=== PATIENT | female | born 1960 | race Caucasian/White ===

== ENCOUNTER 2018-05-07 11:34 | Emergency (ER) | payer MEDICAID, OTHER ==
[~2018-05-07] VITALS: Ht 157.5 cm; Wt 48.0 kg
[~2018-05-07 11:34] MED LIST: CLOP75TA35 PO; NO HOME MEDS; RIVA20TA PO
[2018-05-07 12:42] LABS: BASOPHILS % (AUTO) 0.8 % (0-1); EOSINOPHILS # (AUTO) 0.1 X10'3 (0-0.9); EOSINOPHILS % (AUTO) 1.7 % (0-6); HEMATOCRIT 43.1 % (35.0-45.0); HEMOGLOBIN 14.3 g/dl (12.0-16.0); LYMPHOCYTES # (AUTO) 1.4 X10'3 (1.1-4.8); LYMPHOCYTES % (AUTO) 31.5 % (21-51); MEAN CORPUSCULAR HEMOGLOBIN 33.1 PG (27.0-31.0); MEAN CORPUSCULAR HGB CONC 33.2 % (33.0-36.5); MEAN CORPUSCULAR VOLUME 99.8 FL (78-98); MEAN PLATELET VOLUME 7.5 FL (7.4-10.4); MONOCYTES # (AUTO) 0.5 X10'3 (0-0.9); MONOCYTES % (AUTO) 10.6 % (2-12); NEUTROPHILS # (AUTO) 2.4 X10'3 (1.8-7.7); NEUTROPHILS % (AUTO) 55.4 % (42-75); PLATELET COUNT 219 X10'3 (140-440); RED BLOOD COUNT 4.32 X10'6 (4.20-5.60); RED CELL DISTRIBUTION WIDTH 13.4 % (11.5-14.5); WHITE BLOOD COUNT 4.4 X10'3 (4.5-11.0)
--- NOTE | 2018-05-07 12:53 | NUR ---
UP TO BSC
[2018-05-07 12:59] LABS: ALANINE AMINOTRANSFERASE 198 U/L (12-78); ALBUMIN 3.9 G/DL (3.4-5.0); ALKALINE PHOSPHATASE 89 IU/L (46-116); ANION GAP 14 (8-16); ASPARTATE AMINO TRANSFERASE 121 U/L (10-37); BILIRUBIN,TOTAL 0.3 MG/DL (0.1-1.0); BLOOD UREA NITROGEN 12 MG/DL (7-18); BUN/CREATININE RATIO 21.4 (6.6-38.0); CHLORIDE 102 MMOL/L (99-107); CREATININE 0.56 MG/DL (0.40-0.90); GLUCOSE 80 MG/DL (70-104); SODIUM 139 MMOL/L (135-145); TOTAL PROTEIN 7.8 G/DL (6.4-8.2); eGFR > 90 ML/MIN
[2018-05-07 13:09] LABS: PARTIAL THROMBOPLASTIN TIME 25 SECONDS (22-32); PROTHROMBIN TIME 10.1 SECONDS (9.0-12.0)
[2018-05-07] MEDS ORDERED: ASPI81TA52 PO (15:12)
[2018-05-07 15:24] VITALS: BP 136/73
== END 2018-05-07 15:27 | disposition home or self-care (01) ==
LOC: ER 11:34
DX: I73.9 Peripheral vascular disease, unspecified (principal); F12.90 Cannabis use, unspecified, uncomplicated; F15.90 Other stimulant use, unspecified, uncomplicated; Z86.718 Personal history of other venous thrombosis and embolism; Z88.5 Allergy status to narcotic agent; Z79.82 Long term (current) use of aspirin; Z79.899 Other long term (current) drug therapy
CPT/HCPCS: 36415; 80053; 80320; 85025; 85610; 85730; 93922; 93925; 99284

== ENCOUNTER 2019-09-22 17:32 | Emergency (ER) | payer MEDICAID, OTHER ==
[~2019-09-22] VITALS: Ht 157.5 cm; Wt 49.8 kg
[~2019-09-22 17:32] MED LIST changes: +ASPI81TA52 PO
[2019-09-22] MEDS ORDERED: LIDOcaine 1% W/epiNEPHrine 1:200,000 10ml vial IJ ONE (18:00)
[2019-09-22] MEDS ORDERED: CEPH250T PO (18:20)
[2019-09-22 18:31] VITALS: BP 138/73
== END 2019-09-22 18:32 | disposition home or self-care (01) ==
LOC: ER 17:32
DX: H66.41 Suppurative otitis media, unspecified, right ear (principal); F12.90 Cannabis use, unspecified, uncomplicated; F15.90 Other stimulant use, unspecified, uncomplicated; Z88.5 Allergy status to narcotic agent; Z79.82 Long term (current) use of aspirin; Z79.899 Other long term (current) drug therapy; Z79.01 Long term (current) use of anticoagulants; Z86.718 Personal history of other venous thrombosis and embolism; Z72.89 Other problems related to lifestyle
CPT/HCPCS: 10060; 99283

== ENCOUNTER 2019-10-28 12:34 | Inpatient (IN) | payer MEDICAID, OTHER ==
[~2019-10-28] VITALS: Ht 157.5 cm; Wt 57.1 kg
--- NOTE | 2019-10-28 13:18 | NUR ---
Dr. Alvarez notified of patient and condition. She will be moved to bed 12 when cleaned and venous/arterial vascular studies ordered.
[2019-10-28] MEDS ORDERED: aspirin 325mg tablet PO ONE (15:10)
[2019-10-28] MEDS ORDERED: heparin 25,000 UNIT/250ml bag 250 ML IV SCH (15:13)
[2019-10-28] MEDS ORDERED: heparin 10,000 units/1 ML INJ IV PRN (15:15)
[2019-10-28] MEDS ORDERED: heparin 10,000 units/1 ML INJ IV ONE (15:15)
[2019-10-28] MEDS ORDERED: iohexol 350 MG/ML 50ML vial IV ONE (15:27)
[2019-10-28] MEDS ORDERED: iohexol 350MG/ML 100ml bottle IV ONE (15:27)
[2019-10-28 16:00] LABS: BASOPHILS % (AUTO) 0.4 % (0-1); EOSINOPHILS % (AUTO) 0.4 % (0-6); HEMATOCRIT 44.1 % (35.0-45.0); LYMPHOCYTES # (AUTO) 1.6 X10'3 (1.1-4.8); MEAN CORPUSCULAR HEMOGLOBIN 33.1 PG (27.0-31.0); MEAN CORPUSCULAR HGB CONC 34.1 g/dL (33.0-36.5); MEAN CORPUSCULAR VOLUME 97.1 FL (78-98); MEAN PLATELET VOLUME 7.9 FL (7.4-10.4); MONOCYTES # (AUTO) 0.5 X10'3 (0-0.9); MONOCYTES % (AUTO) 6.9 % (2-12); NEUTROPHILS % (AUTO) 70.3 % (42-75); PLATELET COUNT 159 X10'3 (140-440); RED BLOOD COUNT 4.54 X10'6 (4.20-5.60); RED CELL DISTRIBUTION WIDTH 13.7 % (11.5-14.5); WHITE BLOOD COUNT 7.1 X10'3 (4.5-11.0)
[2019-10-28] MEDS ORDERED: LIDOcaine 1% (10mg/ml) 2ml vial ONE (16:07)
[2019-10-28] MEDS ORDERED: heparin 10,000 units/1 ML INJ ONE ×2 (16:07→20:02)
[2019-10-28 16:11] LABS: ALANINE AMINOTRANSFERASE 40 U/L (12-78); ALBUMIN 3.5 G/DL (3.4-5.0); ALBUMIN/GLOBULIN RATIO 0.8 (1.1-1.5); ALKALINE PHOSPHATASE 97 IU/L (46-116); ANION GAP 9 (8-16); ASPARTATE AMINO TRANSFERASE 143 U/L (10-37); BILIRUBIN,TOTAL 0.5 MG/DL (0.1-1.0); BLOOD UREA NITROGEN 10 MG/DL (7-18); BUN/CREATININE RATIO 16.9 (6.6-38.0); CALCIUM 9.2 MG/DL (8.5-10.1); CHLORIDE 96 MMOL/L (99-107); CREATININE 0.59 MG/DL (0.40-0.90); GLUCOSE 98 MG/DL (70-104); POTASSIUM 3.6 MMOL/L (3.5-5.1); SODIUM 134 MMOL/L (135-145); TOTAL CARBON DIOXIDE 29.3 MMOL/L (24-32); TOTAL PROTEIN 7.8 G/DL (6.4-8.2); eGFR > 90 ML/MIN
[2019-10-28 16:15] LABS: TROPONIN I 0.17 NG/ML (0.0-0.05)
[2019-10-28] MEDS ORDERED: iohexol 300 MG/1 ML 50ml polymer ONE (16:20)
[2019-10-28] MEDS: ringers solution, lacted 1,000 ML IV SCH (16:26)
[2019-10-28 16:30] LABS: CLARITY,URINE SLIGHTLY CLOUDY (Clear); COLOR,URINE YELLOW (Yellow); GLUCOSE, URINE NEGATIVE (Neg); KETONES,URINE NEGATIVE (Neg); LEUKOCYTE ESTERASE ,URINE TRACE (Neg); NITRITES, URINE POSITIVE (Neg); OCCULT BLOOD,URINE TRACE-LYSED (Neg); PH,URINE 6.5 (4.8-8.0); PROTEIN,URINE NEGATIVE (Neg)
[2019-10-28 16:32] LABS: UA COLLECTION TYPE CLN CATCH MIDSTREAM
[2019-10-28 16:50] LABS: SQUAMOUS EPITHELIAL CELL,UR FEW /LPF (FEW)
[2019-10-28 16:52] LABS: BACTERIA,URINE 3+ /HPF (Neg); RBC,URINE NONE SEEN /HPF (0-2)
--- NOTE | 2019-10-28 17:02 | NUR ---
DVT heparin protocoll cancelled by telephone order by Dr. Bañuelos
[2019-10-28] MEDS ORDERED: dexamethasone sod phosphate 10mg/ml inj ONE (17:17)
[2019-10-28] MEDS ORDERED: sevoflurane 250ml liquid IH ONE (17:17)
[2019-10-28] MEDS ORDERED: rocuronium 10mg/ml inj IV ONE ×2 (17:17→18:54)
[2019-10-28] MEDS ORDERED: nitroGLYCERIN in D5W 50mg/250ml (Tridil) infusion IV ONE (17:17)
[2019-10-28] MEDS ORDERED: fentaNYL /PF 50mcg/ml 5ml ampule ONE (17:31)
[2019-10-28] MEDS ORDERED: MIDAZolam 5mg/5ml vial ONE (17:31)
[2019-10-28] MEDS ORDERED: ringers solution, lacted 1,000 ML IV SCH (18:46)
[2019-10-28] MEDS ORDERED: morphine 2 MG/ML inj. syringe IV PRN (18:50)
[2019-10-28] MEDS ORDERED: proCHLORperazine 10 MG/2 ml inj IV PRN (18:50)
[2019-10-28] MEDS ORDERED: meperidine/PF 25mg/ml syringe IV PRN ×3 (18:50)
[2019-10-28] MEDS ORDERED: morphine 4 MG/ML inj SYRINge IV PRN (18:50)
[2019-10-28] MEDS ORDERED: ondansetron/PF 4mg/2ml inj IV PRN (18:50)
[2019-10-28] MEDS ORDERED: ceFAZolin 1000mg inj ONE ×2 (18:54)
[2019-10-28] MEDS ORDERED: phenylephrine 10mg/ml inj. ONE (18:54)
[2019-10-28] MEDS ORDERED: propofol inj 20 ML IV ONE (18:54)
[2019-10-28] MEDS ORDERED: LIDOcaine 2% (20mg/ml) 5ml vial ONE (18:54)
[2019-10-28] MEDS ORDERED: heparin 1,000unit/ml 10ml vial 10 ML ONE (18:54)
[2019-10-28] MEDS ORDERED: morphine 10mg/ml inj. ONE (20:00)
[2019-10-28] MEDS ORDERED: albumin (Human) 5% 250ml 250 ML IV ONE (20:34)
[2019-10-28 21:56] LABS: BASOPHILS % (AUTO) 0.1 % (0-1); EOSINOPHILS % (AUTO) 0.2 % (0-6); HEMATOCRIT 29.2 % (35.0-45.0); HEMOGLOBIN 9.7 g/dl (12.0-16.0); LYMPHOCYTES # (AUTO) 0.7 X10'3 (1.1-4.8); LYMPHOCYTES % (AUTO) 12.7 % (21-51); MEAN CORPUSCULAR HEMOGLOBIN 32.3 PG (27.0-31.0); MEAN CORPUSCULAR HGB CONC 33.4 g/dL (33.0-36.5); MEAN CORPUSCULAR VOLUME 96.8 FL (78-98); MEAN PLATELET VOLUME 7.4 FL (7.4-10.4); MONOCYTES # (AUTO) 0.1 X10'3 (0-0.9); MONOCYTES % (AUTO) 2.4 % (2-12); NEUTROPHILS # (AUTO) 4.6 X10'3 (1.8-7.7); NEUTROPHILS % (AUTO) 84.6 % (42-75); PLATELET COUNT 112 X10'3 (140-440); RED BLOOD COUNT 3.01 X10'6 (4.20-5.60); RED CELL DISTRIBUTION WIDTH 13.8 % (11.5-14.5); WHITE BLOOD COUNT 5.4 X10'3 (4.5-11.0)
[2019-10-28 22:04] LABS: ALBUMIN 2.2 G/DL (3.4-5.0); ANION GAP 10 (8-16); BLOOD UREA NITROGEN 5 MG/DL (7-18); BUN/CREATININE RATIO 12.5 (6.6-38.0); CALCIUM 6.6 MG/DL (8.5-10.1); CHLORIDE 108 MMOL/L (99-107); GLUCOSE 133 MG/DL (70-104); POTASSIUM 3.4 MMOL/L (3.5-5.1); SODIUM 139 MMOL/L (135-145); TOTAL CARBON DIOXIDE 21.3 MMOL/L (24-32); eGFR > 90 ML/MIN
[2019-10-28] MEDS ORDERED: HYDROmorphone 1 mg/ml syringe IV PRN (22:25)
[2019-10-28] MEDS ORDERED: HYDROcodone/acetaminophen 10/325mg tab PO PRN (22:25)
[2019-10-28 22:40] VITALS: BP 119/70
--- NOTE | 2019-10-28 22:41 | NUR ---
PT TRANSFERRED TO ROOM 2010 IN CICU. PT POST OP. ANESTHESIOLOGIST REPORTED DRAWING POST OP LABS. PT HAS NE CENTRAL LINE. ACCOUNT SERVICES SPECIALIST ORDERED MD ALCANTAR CONFIRMED LINE PLACEMENT. PT IS ASLEEP BUT WAKES UP EASILY. VITAL SIGNS ARE STABLE. PT HAS A RIGHT RADIAL ART LINE. PT SURGICAL SITE ON LEFT CALF WITH MINIMAL AND A WOUND VAC ON LEFT GROIN. BILATERAL PEDAL AND POSTERIOR TIBIALIS PULSES PRESENT VIA DOPPLER. PT IS A&OX4. WILL CONTINUE TO MONITOR
[2019-10-28 23:00] VITALS: BP 124/74
[2019-10-28 23:15] VITALS: BP 111/71
[2019-10-28 23:30] VITALS: BP 126/73
[2019-10-28] MEDS: ceFAZolin inj. 1,000 MG in dextrose 5%-water 50ml 50 ML IV SCH (23:52)
[2019-10-28] MEDS: potassium CL 20mEq in D5-1/2NS 1,000 ML IV SCH (23:52)
[2019-10-29] VITALS (20 sets, daily range): BP systolic 91–134; BP diastolic 47–77
[2019-10-29] MEDS ORDERED: ceFAZolin 1GM/D5W- ADD-VANTAGE 50 ML IV SCH
[2019-10-29 03:33] LABS: BASOPHILS % (AUTO) 0.1 % (0-1); EOSINOPHILS % (AUTO) 0 % (0-6); HEMATOCRIT 30.5 % (35.0-45.0); HEMOGLOBIN 10.2 g/dl (12.0-16.0); LYMPHOCYTES # (AUTO) 0.7 X10'3 (1.1-4.8); LYMPHOCYTES % (AUTO) 9.5 % (21-51); MEAN CORPUSCULAR HEMOGLOBIN 32.7 PG (27.0-31.0); MEAN CORPUSCULAR HGB CONC 33.4 g/dL (33.0-36.5); MEAN PLATELET VOLUME 7.8 FL (7.4-10.4); MONOCYTES # (AUTO) 0.5 X10'3 (0-0.9); MONOCYTES % (AUTO) 6.2 % (2-12); NEUTROPHILS # (AUTO) 6.2 X10'3 (1.8-7.7); NEUTROPHILS % (AUTO) 84.2 % (42-75); PLATELET COUNT 110 X10'3 (140-440); RED BLOOD COUNT 3.11 X10'6 (4.20-5.60); RED CELL DISTRIBUTION WIDTH 13.5 % (11.5-14.5); WHITE BLOOD COUNT 7.4 X10'3 (4.5-11.0)
[2019-10-29 03:47] LABS: ALBUMIN 2.4 G/DL (3.4-5.0); ANION GAP 6 (8-16); BLOOD UREA NITROGEN 5 MG/DL (7-18); BUN/CREATININE RATIO 11.1 (6.6-38.0); CALCIUM 6.9 MG/DL (8.5-10.1); CHLORIDE 106 MMOL/L (99-107); CREATININE 0.45 MG/DL (0.40-0.90); GLUCOSE 217 MG/DL (70-104); POTASSIUM 3.7 MMOL/L (3.5-5.1); SODIUM 138 MMOL/L (135-145); TOTAL CARBON DIOXIDE 26.4 MMOL/L (24-32); eGFR > 90 ML/MIN
[2019-10-29 04:09] LABS: UA EOSINOPHILS RARE EOS /HPF
[2019-10-29] MEDS: ringers solution, lacted 1,000 ML IV SCH (05:46)
--- NOTE | 2019-10-29 06:00 | NUR ---
Patient in room CICU 2009. I have received report from LUCIA Hardwick and had the opportunity to ask questions and assume patient care.
--- NOTE | 2019-10-29 06:11 | NUR ---
Problems reprioritized. Patient report given, questions answered & plan of care reviewed
[2019-10-29] MEDS: ceFAZolin inj. 1,000 MG in dextrose 5%-water 50ml 50 ML IV SCH ×2 (07:41→15:35)
[2019-10-29] MEDS: potassium CL 20mEq in D5-1/2NS 1,000 ML IV SCH ×4 (08:36→22:22)
[2019-10-29 11:37] LABS: CREATINE KINASE 2679 U/L (26-192)
[2019-10-29] MEDS ORDERED: iohexol 350 MG/ML 50ML vial IV ONE (12:29)
[2019-10-29] MEDS ORDERED: iohexol 350MG/ML 100ml bottle IV ONE (12:29)
[2019-10-29] MEDS ORDERED: CLOP75TA33 PO (13:11)
[2019-10-29] MEDS ORDERED: RIVA20TA PO (13:11)
[2019-10-29] MEDS ORDERED: ASPI-611 PO (13:11)
[2019-10-29] MEDS ORDERED: heparin 10,000 units/1 ML INJ ONE (17:15)
[2019-10-29] MEDS ORDERED: ceFAZolin 1000mg inj ONE ×3 (17:15→19:28)
--- NOTE | 2019-10-29 18:10 | NUR ---
Problems reprioritized. Patient report given, questions answered & plan of care reviewed with LUCIA Hardwick.
--- NOTE | 2019-10-29 18:15 | NUR ---
Patient in room CICU 2009. I have received report and had the opportunity to ask questions and assume patient care.
--- NOTE | 2019-10-29 18:25 | NUR ---
pt going back to OR at beginning of shift. Pt A&Ox4, lung sounds are clear with symmetrical bilateral rise and fall of chest. bowel sounds are present in all four quadrants and are normoactive. no bm today. bilateral groin wound vacs have good seal and no output. bilateral radial pulses are strong and palpable. lower left extremity pulses are strong with doppler. lower right extremity is cooler than the left, pulse is weak but can doppler the pulse. island dressing to left calf has some drainage but nothing outside circled drainage from previous shift. will continue to monitor
--- NOTE | 2019-10-29 18:34 | NUR ---
PT TAKEN TO OR WITH TRANSPORT MONITORING
[2019-10-29] MEDS ORDERED: midazolam 2 mg/2 ml injection ONE (18:36)
[2019-10-29] MEDS ORDERED: phenylephrine 10mg/ml inj. ONE (18:37)
[2019-10-29] MEDS ORDERED: sevoflurane 250ml liquid IH ONE (18:37)
[2019-10-29] MEDS ORDERED: fentaNYL /PF 50mcg/ml 5ml ampule ONE (18:40)
[2019-10-29] MEDS ORDERED: rocuronium 10mg/ml inj IV ONE ×2 (19:28)
[2019-10-29] MEDS ORDERED: midazolam 100mg in NS 100ml 100 ML IV PRN (20:06)
[2019-10-29] MEDS ORDERED: FENTANYL-0.9 % NACL/PF 100 ML IV PRN (20:06)
[2019-10-29] MEDS ORDERED: fentaNYL/PF 50MCG/1 ML 2ML syringe IV PRN (20:10)
[2019-10-29] MEDS ORDERED: midazolam 2 mg/2 ml injection IV ONE (20:10)
[2019-10-29] MEDS ORDERED: fentaNYL/PF 50MCG/1 ML 2ML syringe ONE (23:12)
[2019-10-29] MEDS: FENTANYL-0.9 % NACL/PF 100 ML IV PRN (23:44)
[2019-10-29 23:56] LABS: ABG BASE EXCESS -5.2 mmol/L (-2.0-2.0); ABG HCO3 19.3 mmol/L (22.0-26.0); ABG OXYGEN SATURATION 99.2 % (94-97); ABG PCO2 (T) 33.5 mmHg (32.0-45.0); ABG PO2 (T) 350.7 mmHg (75.0-100.0); FCOHb 0.1 % (0.0-3.9); FMetHb 0.2 % (0.0-1.5); FO2Hb 98.9 % (94-97); PATIENT TEMPERATURE 36.6; PEEP 5 cm H2O; RESPIRATORY RATE 12 b/min; TIDAL VOLUME 500 mL; TOTAL HEMOGLOBIN 12.5 G/dl (12.0-16.0)
[2019-10-30] VITALS (28 sets, daily range): BP systolic 87–129; BP diastolic 44–83
[2019-10-30 00:06] LABS: BASOPHILS % (AUTO) 0.2 % (0-1); EOSINOPHILS % (AUTO) 0.1 % (0-6); HEMATOCRIT 35.3 % (35.0-45.0); HEMOGLOBIN 11.9 g/dl (12.0-16.0); LYMPHOCYTES # (AUTO) 0.8 X10'3 (1.1-4.8); LYMPHOCYTES % (AUTO) 11.4 % (21-51); MEAN CORPUSCULAR HEMOGLOBIN 31.8 PG (27.0-31.0); MEAN CORPUSCULAR HGB CONC 33.7 g/dL (33.0-36.5); MEAN CORPUSCULAR VOLUME 94.3 FL (78-98); MEAN PLATELET VOLUME 8.2 FL (7.4-10.4); MONOCYTES # (AUTO) 0.3 X10'3 (0-0.9); MONOCYTES % (AUTO) 4.6 % (2-12); NEUTROPHILS % (AUTO) 83.7 % (42-75); PLATELET COUNT 97 X10'3 (140-440); RED BLOOD COUNT 3.75 X10'6 (4.20-5.60); WHITE BLOOD COUNT 7.2 X10'3 (4.5-11.0)
--- NOTE | 2019-10-30 00:11 | NUR ---
pt returned from or on mechanical ventilator. ett 7.0 at 23 at the teeth- oral care provided, comfit padded with gauze around mouth. versed running at 2mg and fentanyl running at 50 mcg for sedation. pt lung sounds are clear with symmetrical bilateral rise and fall of the chest. og to low intermittent suction. abdomen is distended, large, and firm. md reports fascia is still open, surgical dressing on midline abdomen with no drainage on dressing. bilateral groin sx sites y into wound vac with no drainage at this time. bilateral pedal pulses are normal with doppler. vital signs stable. will continue to monitor
[2019-10-30 00:18] LABS: ALANINE AMINOTRANSFERASE 22 U/L (12-78); ALBUMIN 1.9 G/DL (3.4-5.0); ALBUMIN/GLOBULIN RATIO 0.8 (1.1-1.5); ALKALINE PHOSPHATASE 40 IU/L (46-116); ANION GAP 8 (8-16); ASPARTATE AMINO TRANSFERASE 71 U/L (10-37); BILIRUBIN,TOTAL 1.2 MG/DL (0.1-1.0); BLOOD UREA NITROGEN 2 MG/DL (7-18); BUN/CREATININE RATIO 4.1 (6.6-38.0); CHLORIDE 109 MMOL/L (99-107); CREATININE 0.49 MG/DL (0.40-0.90); GLUCOSE 179 MG/DL (70-104); MAGNESIUM 1.1 MG/DL (1.5-2.4); PHOSPHORUS 2.2 MG/DL (2.3-4.5); POTASSIUM 3.3 MMOL/L (3.5-5.1); SODIUM 139 MMOL/L (135-145); TOTAL PROTEIN 4.2 G/DL (6.4-8.2); eGFR > 90 ML/MIN
[2019-10-30] MEDS ORDERED: potassium CL 10mEq/100ml bag 100 ML IV PRN (00:30)
[2019-10-30] MEDS ORDERED: magnesium 4gm in 100ml NS 100 ML IV PRN (00:30)
[2019-10-30] MEDS ORDERED: Neutra Phos packet PO PRN (00:30)
[2019-10-30] MEDS ORDERED: sodium phosphate inj. 15 MMOL in dextrose 5%-water 250 ML IV PRN (00:30)
[2019-10-30] MEDS ORDERED: calcium chloride 100 MG/1 ML inj IV ONE (00:30)
[2019-10-30] MEDS ORDERED: sodium phosphate inj. 30 MMOL in dextrose 5%-water 250 ML IV PRN (00:30)
[2019-10-30] MEDS: ceFOXitin 1 GM/D5W 50mL IVPB 50 ML IV SCH ×2 (00:44→09:41)
[2019-10-30 00:54] LABS: PARTIAL THROMBOPLASTIN TIME > 139 SECONDS (22-32)
[2019-10-30] MEDS: ringers solution, lacted 1,000 ML IV SCH ×3 (01:07→20:43)
[2019-10-30] MEDS: magnesium 2GM in 50ml NS 50 ML IV PRN (01:29)
[2019-10-30] MEDS ORDERED: albumin (Human) 5% 250ml 250 ML IV ONE ×2 (02:45→02:49)
[2019-10-30] MEDS ORDERED: albumin (Human) 5% 250ml 500 ML IV ONE (02:45)
--- NOTE | 2019-10-30 02:46 | NUR ---
pt bp 79/51. software packager notified. ordered for 5% albumin 500ml iv once received
[2019-10-30 02:51] LABS: BASOPHILS % (AUTO) 0.1 % (0-1); EOSINOPHILS % (AUTO) 0 % (0-6); HEMOGLOBIN 11.4 g/dl (12.0-16.0); LYMPHOCYTES # (AUTO) 0.8 X10'3 (1.1-4.8); LYMPHOCYTES % (AUTO) 9.3 % (21-51); MEAN CORPUSCULAR HEMOGLOBIN 32.4 PG (27.0-31.0); MEAN CORPUSCULAR HGB CONC 34.4 g/dL (33.0-36.5); MEAN CORPUSCULAR VOLUME 94.3 FL (78-98); MEAN PLATELET VOLUME 8.3 FL (7.4-10.4); MONOCYTES # (AUTO) 0.8 X10'3 (0-0.9); MONOCYTES % (AUTO) 8.8 % (2-12); NEUTROPHILS # (AUTO) 7.3 X10'3 (1.8-7.7); NEUTROPHILS % (AUTO) 81.8 % (42-75); PLATELET COUNT 90 X10'3 (140-440); RED CELL DISTRIBUTION WIDTH 15.3 % (11.5-14.5)
[2019-10-30 02:59] LABS: ALBUMIN 1.8 G/DL (3.4-5.0); ANION GAP 7 (8-16); BLOOD UREA NITROGEN 4 MG/DL (7-18); BUN/CREATININE RATIO 6.9 (6.6-38.0); CALCIUM 7.9 MG/DL (8.5-10.1); CHLORIDE 107 MMOL/L (99-107); CREATININE 0.58 MG/DL (0.40-0.90); GLUCOSE 235 MG/DL (70-104); SODIUM 135 MMOL/L (135-145); TOTAL CARBON DIOXIDE 20.8 MMOL/L (24-32); eGFR > 90 ML/MIN
[2019-10-30 03:36] LABS: ABG BASE EXCESS -6.6 mmol/L (-2.0-2.0); ABG HCO3 17.6 mmol/L (22.0-26.0); ABG OXYGEN SATURATION 97.7 % (94-97); ABG PCO2 (T) 31.2 mmHg (32.0-45.0); ABG PO2 (T) 119.9 mmHg (75.0-100.0); FMetHb 0.1 % (0.0-1.5); FO2Hb 97.6 % (94-97); PATIENT TEMPERATURE 37.5; PEEP 5 cm H2O; RESPIRATORY RATE 12 b/min; TIDAL VOLUME 500 mL; TOTAL HEMOGLOBIN 10.4 G/dl (12.0-16.0)
--- NOTE | 2019-10-30 06:09 | NUR ---
Problems reprioritized. Patient report given, questions answered & plan of care reviewed with zane choudhury.
--- NOTE | 2019-10-30 06:30 | NUR ---
Patient in room CICU 2009. I have received report from Sandra MYERS and had the opportunity to ask questions and assume patient care.
[2019-10-30] MEDS ORDERED: dextrose ORAL solution 15 GM/59 ML bottle PO PRN ×2 (09:20)
[2019-10-30] MEDS ORDERED: dextrose 50%-water 50ml dispensing syringe IV PRN ×2 (09:20)
[2019-10-30] MEDS ORDERED: MESSAGE TO PHARMACY PO ONE (09:20)
[2019-10-30] MEDS ORDERED: glucagon, human recombinant 1mg kit SUBCUT PRN (09:20)
[2019-10-30] MEDS: insulin Lispro (HumaLOG) vial - multi-dose SQ SCH ×2 (09:39→20:15)
[2019-10-30] MEDS: potassium CL 20mEq in D5-1/2NS 1,000 ML IV SCH ×3 (09:41→22:22)
[2019-10-30] MEDS ORDERED: iohexol 350MG/ML 100ml bottle IV ONE (10:12)
[2019-10-30] MEDS ORDERED: iohexol 350 MG/ML 50ML vial IV ONE (10:12)
--- NOTE | 2019-10-30 11:02 | NUR ---
Rounds Note informed Dr. Agustin of Dr. Montilla plan for the day, informed Dr Agustin of the positive urine culture her added rocephin 1gm Q8. No other new orders at this time
[2019-10-30] MEDS: FENTANYL-0.9 % NACL/PF 100 ML IV PRN (12:59)
[2019-10-30] MEDS: CefTRIAXone/D5W-Rocephin 1gm 50 ML IV SCH (14:04)
--- NOTE | 2019-10-30 18:29 | NUR ---
Patient in room CICU 2009. I have received report from ALEX MYERS and had the opportunity to ask questions and assume patient care.
[2019-10-30] MEDS: insulin glargine (Lantus) pen - multi-dose SQ SCH (20:16)
[2019-10-31] VITALS (32 sets, daily range): BP systolic 80–141; BP diastolic 39–74
[2019-10-31 02:50] LABS: BASOPHILS % (AUTO) 0.1 % (0-1); EOSINOPHILS % (AUTO) 0 % (0-6); HEMOGLOBIN 7.4 g/dl (12.0-16.0); LYMPHOCYTES # (AUTO) 1.2 X10'3 (1.1-4.8); LYMPHOCYTES % (AUTO) 13.9 % (21-51); MEAN CORPUSCULAR HEMOGLOBIN 31.8 PG (27.0-31.0); MEAN CORPUSCULAR HGB CONC 33.9 g/dL (33.0-36.5); MEAN CORPUSCULAR VOLUME 93.9 FL (78-98); MEAN PLATELET VOLUME 8.5 FL (7.4-10.4); MONOCYTES # (AUTO) 1.4 X10'3 (0-0.9); NEUTROPHILS # (AUTO) 5.9 X10'3 (1.8-7.7); PLATELET COUNT 93 X10'3 (140-440); RED BLOOD COUNT 2.33 X10'6 (4.20-5.60); RED CELL DISTRIBUTION WIDTH 15.5 % (11.5-14.5); WHITE BLOOD COUNT 8.5 X10'3 (4.5-11.0)
[2019-10-31 02:57] LABS: HEMATOCRIT 21.8 % (35.0-45.0)
[2019-10-31] MEDS: mineral oil/petrolatum ophthal oint EACHEYE SCH ×4 (03:04→19:48)
[2019-10-31] MEDS: insulin Lispro (HumaLOG) vial - multi-dose SQ SCH ×2 (03:05→10:44)
[2019-10-31 03:08] LABS: ALBUMIN 2.1 G/DL (3.4-5.0); ANION GAP 7 (8-16); BLOOD UREA NITROGEN 8 MG/DL (7-18); BUN/CREATININE RATIO 16.7 (6.6-38.0); CHLORIDE 105 MMOL/L (99-107); CREATININE 0.48 MG/DL (0.40-0.90); GLUCOSE 144 MG/DL (70-104); MAGNESIUM 1.4 MG/DL (1.5-2.4); PHOSPHORUS 2.3 MG/DL (2.3-4.5); SODIUM 136 MMOL/L (135-145); TOTAL CARBON DIOXIDE 23.9 MMOL/L (24-32); eGFR > 90 ML/MIN
[2019-10-31 03:27] LABS: TOTAL CELLS COUNTED 100
[2019-10-31 03:28] LABS: PLATELET ESTIMATE DECREASED
[2019-10-31 04:45] LABS: ABG BASE EXCESS -7.3 mmol/L (-2.0-2.0); ABG HCO3 16.7 mmol/L (22.0-26.0); ABG OXYGEN SATURATION 94.6 % (94-97); ABG PCO2 (T) 28.6 mmHg (32.0-45.0); ABG PO2 (T) 85.4 mmHg (75.0-100.0); FCOHb 0.3 % (0.0-3.9); FMetHb 0.2 % (0.0-1.5); FO2Hb 94.1 % (94-97); PATIENT TEMPERATURE 37.9; PEEP 5 cm H2O; TOTAL HEMOGLOBIN 7.4 G/dl (12.0-16.0)
--- NOTE | 2019-10-31 06:15 | NUR ---
Patient in room CICU 2009. I have received report from RN and had the opportunity to ask questions and assume patient care.
[2019-10-31] MEDS: CefTRIAXone/D5W-Rocephin 1gm 50 ML IV SCH (07:59)
[2019-10-31] MEDS: FENTANYL-0.9 % NACL/PF 100 ML IV PRN (08:04)
[2019-10-31] MEDS: ondansetron/PF 4mg/2ml inj IV PRN (09:41)
[2019-10-31] MEDS: furosemide 40mg/4ml inj IV SCH (09:48)
[2019-10-31] MEDS: magnesium 2GM in 50ml NS 50 ML IV PRN (10:12)
[2019-10-31] MEDS: potassium CL 20mEq in D5-1/2NS 1,000 ML IV SCH (13:53)
--- NOTE | 2019-10-31 14:00 | NUR ---
Orders to extubate per MD. VC 1481, NIF 25, RSBI 10, Cuff leak present.
--- NOTE | 2019-10-31 14:19 | NUR ---
PT extubated at 1415 without complications. On 2L NC.
--- NOTE | 2019-10-31 14:55 | NUR ---
francisco j nazario md notified. orders received
[2019-10-31] MEDS ORDERED: normal saline 1000ml 1,000 ML IV ONE (15:00)
[2019-10-31 15:49] LABS: MAGNESIUM 1.9 MG/DL (1.5-2.4); POTASSIUM 3.6 MMOL/L (3.5-5.1)
--- NOTE | 2019-10-31 15:51 | NUR ---
Patient is intubated and sedated s/p thrombectomy and left fempop with graft on 10/27; aortic endarterectomy, lysis of adhesions on 10/28. Patient is NPO pending OR for wound closure. If cannot be started on tube feeding for nutrition while intubated may benefit from parenteral nutrition to meet needs. If extubated, monitor diet advancement. Recommend: 1. If needing nutrition support while intubated recommend TF if can feed into gut, if cannot feed enterally would benefit from TPN. 2. When extubated, advance diet as medically indicated when OK by surgeon 3. weight per rx Addendum: 10/31/19 at [address] Amended: Links added.
[2019-10-31] MEDS ORDERED: NORepinephrine 8mg/ 250ml NS 250 ML IV SCH (16:21)
[2019-10-31 17:31] LABS: MEAN CORPUSCULAR HEMOGLOBIN 32.3 PG (27.0-31.0); MEAN CORPUSCULAR HGB CONC 34.1 g/dL (33.0-36.5); MEAN CORPUSCULAR VOLUME 94.6 FL (78-98); PLATELET COUNT 78 X10'3 (140-440); RED BLOOD COUNT 1.69 X10'6 (4.20-5.60); RED CELL DISTRIBUTION WIDTH 14.9 % (11.5-14.5); WHITE BLOOD COUNT 5.2 X10'3 (4.5-11.0)
[2019-10-31 17:36] LABS: HEMOGLOBIN 5.5 g/dl (12.0-16.0)
--- NOTE | 2019-10-31 17:45 | NUR ---
14FR NG tube placed in left nare,to wall suction low intermittent critical H/H. notified, orders received.
--- NOTE | 2019-10-31 18:15 | NUR ---
Patient in room CICU 2009. I have received report from Fatmata MYERS and had the opportunity to ask questions and assume patient care. Patient is resting and receiving blood transfusion. She is A+O and is answering questions appropriately. Will continue to monitor.
[2019-10-31] MEDS: metoclopramide 5 mg/ml inj IV SCH (19:48)
[2019-10-31] MEDS: pantoprazole 40 MG vial IV SCH (19:49)
[2019-10-31] MEDS: lactobacillus rhamnosus 10,000 MMU CELLS/CAPSULE NG SCH (20:11)
[2019-10-31] MEDS ORDERED: HYDROmorphone inj. 0.5 MG/0.5 ML DISP.SYRIN IV PRN (20:15)
[2019-10-31] MEDS: insulin glargine (Lantus) pen - multi-dose SQ SCH (21:00)
[2019-11-01] VITALS (24 sets, daily range): BP systolic 97–130; BP diastolic 50–95
[2019-11-01 00:45] LABS: PLATELET COUNT 85 X10'3 (140-440); WHITE BLOOD COUNT 6.4 X10'3 (4.5-11.0)
[2019-11-01 00:46] LABS: BASOPHILS % (AUTO) 0.3 % (0-1); EOSINOPHILS % (AUTO) 0.2 % (0-6); HEMOGLOBIN 9.1 g/dl (12.0-16.0); LYMPHOCYTES # (AUTO) 0.9 X10'3 (1.1-4.8); LYMPHOCYTES % (AUTO) 13.4 % (21-51); MEAN CORPUSCULAR HEMOGLOBIN 31.6 PG (27.0-31.0); MEAN CORPUSCULAR HGB CONC 33.9 g/dL (33.0-36.5); MEAN CORPUSCULAR VOLUME 93.3 FL (78-98); MONOCYTES # (AUTO) 0.8 X10'3 (0-0.9); MONOCYTES % (AUTO) 12.3 % (2-12); NEUTROPHILS # (AUTO) 4.7 X10'3 (1.8-7.7); NEUTROPHILS % (AUTO) 73.8 % (42-75); RED BLOOD COUNT 2.89 X10'6 (4.20-5.60); RED CELL DISTRIBUTION WIDTH 15.3 % (11.5-14.5)
[2019-11-01 01:02] LABS: ALBUMIN 1.7 G/DL (3.4-5.0); ANION GAP 5 (8-16); BLOOD UREA NITROGEN 6 MG/DL (7-18); BUN/CREATININE RATIO 9.8 (6.6-38.0); CALCIUM 6.5 MG/DL (8.5-10.1); CHLORIDE 105 MMOL/L (99-107); CREATININE 0.61 MG/DL (0.40-0.90); GLUCOSE 116 MG/DL (70-104); MAGNESIUM 1.8 MG/DL (1.5-2.4); PHOSPHORUS 1.9 MG/DL (2.3-4.5); POTASSIUM 3.7 MMOL/L (3.5-5.1); SODIUM 136 MMOL/L (135-145); TOTAL CARBON DIOXIDE 25.8 MMOL/L (24-32); eGFR > 90 ML/MIN
[2019-11-01] MEDS: ondansetron/PF 4mg/2ml inj IV PRN (01:07)
[2019-11-01] MEDS: metoclopramide 5 mg/ml inj IV SCH ×4 (02:26→20:28)
[2019-11-01] MEDS: mineral oil/petrolatum ophthal oint EACHEYE SCH ×2 (02:26→08:00)
[2019-11-01] MEDS: potassium CL 20mEq in D5-1/2NS 1,000 ML IV SCH ×3 (02:29→17:07)
--- NOTE | 2019-11-01 06:35 | NUR ---
Problems reprioritized. Patient report given, questions answered & plan of care reviewed with Venessa MYERS.
--- NOTE | 2019-11-01 06:41 | NUR ---
Patient in room CICU 2009. I have received report from LUCIA Amos and had the opportunity to ask questions and assume patient care.
[2019-11-01] MEDS: pantoprazole 40 MG vial IV SCH ×2 (07:44→20:28)
[2019-11-01] MEDS: lactobacillus rhamnosus 10,000 MMU CELLS/CAPSULE NG SCH ×2 (07:45→20:28)
[2019-11-01] MEDS: aspirin 81mg tablet.DR PO SCH (07:45)
[2019-11-01] MEDS: furosemide 40mg/4ml inj IV SCH (07:45)
[2019-11-01] MEDS: CefTRIAXone/D5W-Rocephin 1gm 50 ML IV SCH (07:45)
[2019-11-01] MEDS: nicotine 21mg patch - 24 hr TD SCH (07:49)
[2019-11-01] MEDS ORDERED: total parenteral nutrition 1 EACH, calcium gluconate 12 MEQ, magnesium 16 MEQ, sodium 8... IV SCH ×14 (09:20)
--- NOTE | 2019-11-01 11:42 | NUR ---
TPN consult: Pt has been extubated. TPN recommendations below calculated to meet patient's estimated nutrient needs using admit wt. Recommendations have been d/w clinical pharmacist. Pt continues with ileus and with almost 2L out from NG tube 10/30 per MD notes. Pt started on routine Reglan. Will continue to follow closely. Recommend: 1. Continuous 3:1 TPN using Clinimix-E 08/28 2L bag with 100 mL 20% intralipids with goal rate of 70 mL/hr to provide: 1680 mL total volume/day, 80.6 g AA, 319 g dextrose (3.43 mg/kg/min dext load), 16 g lipids (10% total kcal from lipids), and 1567 total kcal 2. Prealbumin q Tuesday/ 3. Daily weights 4. Advance diet as medically indicated when OK by surgeon Addendum: 11/01/19 at [address] Amended: Links added.
[2019-11-01] MEDS: [UNRECOGNIZED DRUG - REMARK] IV SCH ×4 (15:13)
--- NOTE | 2019-11-01 18:15 | NUR ---
Patient in room CICU 2009. I have received report from Venessa MYERS and had the opportunity to ask questions and assume patient care.
--- NOTE | 2019-11-01 18:21 | NUR ---
Problems reprioritized. Patient report given, questions answered & plan of care reviewed with LUCIA Amos.
[2019-11-01] MEDS: insulin glargine (Lantus) pen - multi-dose SQ SCH (20:28)
[2019-11-02] VITALS (24 sets, daily range): BP systolic 95–150; BP diastolic 56–90
[2019-11-02] MEDS: metoclopramide 5 mg/ml inj IV SCH ×4 (02:22→19:49)
[2019-11-02 03:16] LABS: BASOPHILS % (AUTO) 0.1 % (0-1); EOSINOPHILS % (AUTO) 0.5 % (0-6); HEMATOCRIT 26.2 % (35.0-45.0); HEMOGLOBIN 8.9 g/dl (12.0-16.0); LYMPHOCYTES # (AUTO) 0.9 X10'3 (1.1-4.8); LYMPHOCYTES % (AUTO) 17.8 % (21-51); MEAN CORPUSCULAR HEMOGLOBIN 31.4 PG (27.0-31.0); MEAN CORPUSCULAR HGB CONC 33.9 g/dL (33.0-36.5); MEAN CORPUSCULAR VOLUME 92.7 FL (78-98); MEAN PLATELET VOLUME 7.6 FL (7.4-10.4); MONOCYTES # (AUTO) 0.8 X10'3 (0-0.9); MONOCYTES % (AUTO) 14.5 % (2-12); NEUTROPHILS # (AUTO) 3.5 X10'3 (1.8-7.7); NEUTROPHILS % (AUTO) 67.1 % (42-75); PLATELET COUNT 121 X10'3 (140-440); RED BLOOD COUNT 2.83 X10'6 (4.20-5.60); WHITE BLOOD COUNT 5.2 X10'3 (4.5-11.0)
[2019-11-02 03:23] LABS: ALBUMIN 1.6 G/DL (3.4-5.0); ANION GAP 0 (8-16); BLOOD UREA NITROGEN 4 MG/DL (7-18); BUN/CREATININE RATIO 8.7 (6.6-38.0); CALCIUM 7.4 MG/DL (8.5-10.1); CHLORIDE 101 MMOL/L (99-107); CREATININE 0.46 MG/DL (0.40-0.90); GLUCOSE 120 MG/DL (70-104); MAGNESIUM 1.5 MG/DL (1.5-2.4); PHOSPHORUS 1.8 MG/DL (2.3-4.5); POTASSIUM 3.1 MMOL/L (3.5-5.1); SODIUM 133 MMOL/L (135-145); TOTAL CARBON DIOXIDE 31.7 MMOL/L (24-32); eGFR > 90 ML/MIN
[2019-11-02] MEDS: potassium Cl 20mEq/100mL bag 100 ML IV PRN ×2 (03:34→17:04)
[2019-11-02] MEDS ORDERED: POTASSIUM BICARB 20meq eff tab 20 MEQ TABLET.EFF PO PRN (05:00)
--- NOTE | 2019-11-02 06:28 | NUR ---
Problems reprioritized. Patient report given, questions answered & plan of care reviewed with Venessa MYERS.
--- NOTE | 2019-11-02 06:29 | NUR ---
Patient in room CICU 2009. I have received report from LUCIA Amos and had the opportunity to ask questions and assume patient care.
--- NOTE | 2019-11-02 06:49 | NUR ---
Patient in room [facility] 2009. I have received report from LUCIA Harris and had the opportunity to ask questions and assume patient care. Addendum: 11/02/19 at 1751 by Venessa Roa RN disregard. wrong pt.
[2019-11-02] MEDS: pantoprazole 40 MG vial IV SCH ×2 (07:53→19:49)
[2019-11-02] MEDS: lactobacillus rhamnosus 10,000 MMU CELLS/CAPSULE NG SCH ×2 (07:53→19:50)
[2019-11-02] MEDS: aspirin 81mg tablet.DR PO SCH (07:54)
[2019-11-02] MEDS: nicotine 21mg patch - 24 hr TD SCH (08:00)
[2019-11-02] MEDS ORDERED: non-formulary drug (Aspirin (Aspir 81) 1 TAB) PO SCH (08:00)
[2019-11-02] MEDS ORDERED: sodium phosphate inj. 15 MMOL in dextrose 5%-water 250 ML IV ONE (08:00)
[2019-11-02] MEDS: POTASSIUM BICARB 20meq eff tab 20 MEQ TABLET.EFF PO PRN ×2 (08:04→12:25)
[2019-11-02] MEDS: potassium CL 20mEq in D5-1/2NS 1,000 ML IV SCH ×2 (09:43→18:11)
[2019-11-02] MEDS ORDERED: tPA-cathflo 2 MG/2 ml IV flush IVF ONE (12:55)
[2019-11-02] MEDS: CefTRIAXone/D5W-Rocephin 1gm 50 ML IV SCH (14:31)
[2019-11-02] MEDS ORDERED: [UNRECOGNIZED DRUG - REMARK] IV SCH ×4 (16:00)
[2019-11-02] MEDS: [UNRECOGNIZED DRUG - REMARK] IV SCH ×4 (16:00)
[2019-11-02] MEDS: rivaroxaban 20mg tablet PO SCH (17:07)
--- NOTE | 2019-11-02 18:34 | NUR ---
Patient in room CICU 2009. I have received report from LUCIA Avilez and had the opportunity to ask questions and assume patient care.
--- NOTE | 2019-11-02 18:34 | NUR ---
Problems reprioritized. Patient report given, questions answered & plan of care reviewed with LUCIA Chou.
--- NOTE | 2019-11-02 18:53 | NUR ---
Dr. Bañuelos called. Ordered CT-A okay to do tomorrow 11/02. Order for Tylenol for temp of 38.2 received.
[2019-11-02] MEDS: insulin glargine (Lantus) pen - multi-dose SQ SCH (19:50)
[2019-11-03] VITALS (23 sets, daily range): BP systolic 113–150; BP diastolic 60–90
--- NOTE | 2019-11-03 | NUR ---
Per Lorin Mccord, WATER INSPECTOR decrease D5 1/2 NS to 10 ml/hr. secondary to TPN at goal of 70mL/hr. urine output 300-350ml/hr.
[2019-11-03] MEDS: metoclopramide 5 mg/ml inj IV SCH ×4 (02:40→19:49)
[2019-11-03 03:15] LABS: BASOPHILS % (AUTO) 0.1 % (0-1); EOSINOPHILS % (AUTO) 0.6 % (0-6); HEMATOCRIT 28.2 % (35.0-45.0); HEMOGLOBIN 9.6 g/dl (12.0-16.0); LYMPHOCYTES # (AUTO) 0.8 X10'3 (1.1-4.8); LYMPHOCYTES % (AUTO) 15.9 % (21-51); MEAN CORPUSCULAR HEMOGLOBIN 31.5 PG (27.0-31.0); MEAN CORPUSCULAR HGB CONC 33.9 g/dL (33.0-36.5); MEAN CORPUSCULAR VOLUME 92.9 FL (78-98); MEAN PLATELET VOLUME 7.5 FL (7.4-10.4); MONOCYTES # (AUTO) 0.9 X10'3 (0-0.9); MONOCYTES % (AUTO) 17.1 % (2-12); NEUTROPHILS # (AUTO) 3.4 X10'3 (1.8-7.7); NEUTROPHILS % (AUTO) 66.3 % (42-75); PLATELET COUNT 164 X10'3 (140-440); RED BLOOD COUNT 3.03 X10'6 (4.20-5.60); RED CELL DISTRIBUTION WIDTH 14.8 % (11.5-14.5); WHITE BLOOD COUNT 5.2 X10'3 (4.5-11.0)
[2019-11-03 03:31] LABS: ALBUMIN 1.7 G/DL (3.4-5.0); ANION GAP 3 (8-16); BLOOD UREA NITROGEN 8 MG/DL (7-18); BUN/CREATININE RATIO 21.6 (6.6-38.0); CALCIUM 7.8 MG/DL (8.5-10.1); CHLORIDE 98 MMOL/L (99-107); CREATININE 0.37 MG/DL (0.40-0.90); GLUCOSE 127 MG/DL (70-104); MAGNESIUM 1.6 MG/DL (1.5-2.4); POTASSIUM 3.1 MMOL/L (3.5-5.1); SODIUM 134 MMOL/L (135-145); TOTAL CARBON DIOXIDE 32.6 MMOL/L (24-32); eGFR > 90 ML/MIN
[2019-11-03] MEDS: potassium Cl 20mEq/100mL bag 100 ML IV PRN ×2 (04:27→05:59)
--- NOTE | 2019-11-03 06:18 | NUR ---
Problems reprioritized. Patient report given, questions answered & plan of care reviewed with Art, RN.
[2019-11-03] MEDS: pantoprazole 40 MG vial IV SCH ×2 (07:20→19:49)
[2019-11-03] MEDS: CefTRIAXone/D5W-Rocephin 1gm 50 ML IV SCH (07:20)
[2019-11-03] MEDS: lactobacillus rhamnosus 10,000 MMU CELLS/CAPSULE NG SCH ×2 (07:20→19:48)
[2019-11-03] MEDS: aspirin 81mg tablet.DR PO SCH (07:20)
[2019-11-03] MEDS: nicotine 21mg patch - 24 hr TD SCH (07:21)
[2019-11-03] MEDS ORDERED: iohexol 350MG/ML 100ml bottle IV ONE (10:23)
[2019-11-03] MEDS ORDERED: iohexol 350 MG/ML 50ML vial IV ONE (10:23)
--- NOTE | 2019-11-03 11:27 | NUR ---
Pt back from ct
[2019-11-03] MEDS ORDERED: [UNRECOGNIZED DRUG - REMARK] IV SCH ×4 (11:44)
[2019-11-03] MEDS: potassium CL 20mEq in D5-1/2NS 1,000 ML IV SCH (12:23)
[2019-11-03] MEDS: acetaminophen 325mg tablet PO PRN (17:19)
[2019-11-03] MEDS: rivaroxaban 20mg tablet PO SCH (18:00)
[2019-11-03] MEDS: insulin glargine (Lantus) pen - multi-dose SQ SCH (21:00)
[2019-11-04] VITALS (24 sets, daily range): BP systolic 87–136; BP diastolic 42–80
[2019-11-04] MEDS: potassium CL 20mEq in D5-1/2NS 1,000 ML IV SCH ×2 (01:27→16:29)
[2019-11-04] MEDS: metoclopramide 5 mg/ml inj IV SCH ×4 (02:43→20:12)
[2019-11-04 03:23] LABS: BASOPHILS % (AUTO) 0.2 % (0-1); EOSINOPHILS # (AUTO) 0.1 X10'3 (0-0.9); EOSINOPHILS % (AUTO) 1.3 % (0-6); HEMOGLOBIN 9.8 g/dl (12.0-16.0); LYMPHOCYTES % (AUTO) 14.5 % (21-51); MEAN CORPUSCULAR HEMOGLOBIN 31.5 PG (27.0-31.0); MEAN CORPUSCULAR HGB CONC 33.9 g/dL (33.0-36.5); MEAN PLATELET VOLUME 7.6 FL (7.4-10.4); MONOCYTES # (AUTO) 0.9 X10'3 (0-0.9); MONOCYTES % (AUTO) 14.2 % (2-12); NEUTROPHILS # (AUTO) 4.6 X10'3 (1.8-7.7); NEUTROPHILS % (AUTO) 69.8 % (42-75); PLATELET COUNT 225 X10'3 (140-440); RED BLOOD COUNT 3.12 X10'6 (4.20-5.60); RED CELL DISTRIBUTION WIDTH 14.6 % (11.5-14.5); WHITE BLOOD COUNT 6.5 X10'3 (4.5-11.0)
[2019-11-04 03:42] LABS: ALBUMIN 1.9 G/DL (3.4-5.0); ANION GAP 7 (8-16); BLOOD UREA NITROGEN 8 MG/DL (7-18); BUN/CREATININE RATIO 21.6 (6.6-38.0); CALCIUM 8.2 MG/DL (8.5-10.1); CHLORIDE 97 MMOL/L (99-107); CREATININE 0.37 MG/DL (0.40-0.90); GLUCOSE 116 MG/DL (70-104); MAGNESIUM 1.7 MG/DL (1.5-2.4); PHOSPHORUS 3.3 MG/DL (2.3-4.5); POTASSIUM 3.8 MMOL/L (3.5-5.1); SODIUM 133 MMOL/L (135-145); TOTAL CARBON DIOXIDE 28.9 MMOL/L (24-32); eGFR > 90 ML/MIN
--- NOTE | 2019-11-04 06:27 | NUR ---
Problems reprioritized. Patient report given, questions answered & plan of care reviewed with Art RN.
[2019-11-04] MEDS: pantoprazole 40 MG vial IV SCH ×2 (07:36→20:12)
[2019-11-04] MEDS: furosemide 40mg/4ml inj IV SCH (07:36)
[2019-11-04] MEDS: CefTRIAXone/D5W-Rocephin 1gm 50 ML IV SCH (07:36)
[2019-11-04] MEDS: aspirin 81mg tablet.DR PO SCH (07:36)
[2019-11-04] MEDS: lactobacillus rhamnosus 10,000 MMU CELLS/CAPSULE NG SCH ×2 (07:36→20:12)
[2019-11-04] MEDS ORDERED: HYDROcodone/acetaminophen 5mg/325mg tablet PO PRN (08:50)
[2019-11-04] MEDS ORDERED: lactulose 20gm/30ml cup PO PRN (08:50)
[2019-11-04] MEDS ORDERED: HYDROcodone/acetaminophen 10/325mg tab PO PRN (08:50)
[2019-11-04] MEDS: nicotine 21mg patch - 24 hr TD SCH (08:55)
--- NOTE | 2019-11-04 09:41 | NUR ---
assisted pt onto a bedpan
--- NOTE | 2019-11-04 12:03 | NUR ---
Reassessment: Pt passing gas and advanced to heart healthy diet PO 100% milk only. Tolerating clear liquids per MD note though no liquid diet ordered post-op. Continues to receive TPN at goal and tolerating. Abdomen large/distended w/ no BM this admit; RN reports lactulose Q6 started this AM until pt has BM. Receiving reglan. Lower PO intake likely influenced by constipation. Will monitor for ONS needs pending PO hx once constipation resolves. Following BM would likely benefit from wean TPN as PO improves as medically indicated. Recommend: 1. Continuous 3:1 TPN using Clinimix-E 5/20 2L bag with 100 mL 20% intralipids with goal rate of 70 mL/hr to provide: 1680 mL total volume/day, 80.6 g AA, 319 g dextrose (3.43 mg/kg/min dext load), 16 g lipids (10% total kcal from lipids), and 1567 total kcal 2. Prealbumin q Tuesday/; Daily weights 3. continue heart healthy diet per MD 4. routine bowel care for constipation post-op 5. monitor for ONS needs once PO improves 6. Wean PN following BM as medically indicated Addendum: 11/04/19 at [address] Amended: Links added.
[2019-11-04] MEDS: acetaminophen 325mg tablet PO PRN (13:45)
[2019-11-04] MEDS ORDERED: NORepinephrine 8mg/ 250ml NS 250 ML IV ONE (17:27)
[2019-11-04] MEDS: rivaroxaban 20mg tablet PO SCH (20:12)
[2019-11-04] MEDS: insulin glargine (Lantus) pen - multi-dose SQ SCH (20:38)
[2019-11-05] VITALS (24 sets, daily range): BP systolic 88–114; BP diastolic 42–73
[2019-11-05] MEDS: metoclopramide 5 mg/ml inj IV SCH ×4 (02:07→19:26)
[2019-11-05 02:59] LABS: BASOPHILS % (AUTO) 0.4 % (0-1); EOSINOPHILS # (AUTO) 0.1 X10'3 (0-0.9); EOSINOPHILS % (AUTO) 1.1 % (0-6); HEMATOCRIT 27.9 % (35.0-45.0); HEMOGLOBIN 9.4 g/dl (12.0-16.0); LYMPHOCYTES # (AUTO) 1.1 X10'3 (1.1-4.8); LYMPHOCYTES % (AUTO) 14.1 % (21-51); MEAN CORPUSCULAR HEMOGLOBIN 31.6 PG (27.0-31.0); MEAN CORPUSCULAR HGB CONC 33.8 g/dL (33.0-36.5); MEAN CORPUSCULAR VOLUME 93.5 FL (78-98); MONOCYTES % (AUTO) 13.5 % (2-12); NEUTROPHILS # (AUTO) 5.4 X10'3 (1.8-7.7); NEUTROPHILS % (AUTO) 70.9 % (42-75); PLATELET COUNT 262 X10'3 (140-440); RED BLOOD COUNT 2.99 X10'6 (4.20-5.60); RED CELL DISTRIBUTION WIDTH 14.9 % (11.5-14.5); WHITE BLOOD COUNT 7.6 X10'3 (4.5-11.0)
[2019-11-05 03:09] LABS: ALBUMIN 1.8 G/DL (3.4-5.0); ANION GAP 5 (8-16); BLOOD UREA NITROGEN 7 MG/DL (7-18); BUN/CREATININE RATIO 21.2 (6.6-38.0); CALCIUM 7.4 MG/DL (8.5-10.1); CHLORIDE 101 MMOL/L (99-107); CREATININE 0.33 MG/DL (0.40-0.90); GLUCOSE 92 MG/DL (70-104); POTASSIUM 3.5 MMOL/L (3.5-5.1); SODIUM 132 MMOL/L (135-145); TOTAL CARBON DIOXIDE 26.5 MMOL/L (24-32); eGFR > 90 ML/MIN
[2019-11-05] MEDS: potassium CL 20mEq in D5-1/2NS 1,000 ML IV SCH ×2 (04:23→05:01)
--- NOTE | 2019-11-05 06:29 | NUR ---
Problems reprioritized. Patient report given, questions answered & plan of care reviewed with Art, RN.
[2019-11-05] MEDS: aspirin 81mg tablet.DR PO SCH (08:36)
[2019-11-05] MEDS: lactobacillus rhamnosus 10,000 MMU CELLS/CAPSULE NG SCH ×2 (08:36→19:26)
[2019-11-05] MEDS: furosemide 40mg/4ml inj IV SCH (08:39)
[2019-11-05] MEDS: pantoprazole 40 MG vial IV SCH ×2 (08:39→19:26)
[2019-11-05] MEDS: CefTRIAXone/D5W-Rocephin 1gm 50 ML IV SCH (08:39)
[2019-11-05] MEDS: nicotine 21mg patch - 24 hr TD SCH (08:40)
--- NOTE | 2019-11-05 16:27 | NUR ---
Central line dressing changed
[2019-11-05] MEDS: rivaroxaban 20mg tablet PO SCH (17:44)
--- NOTE | 2019-11-05 18:30 | NUR ---
Patient in room CICU 2009. I have received report from Art, RN and had the opportunity to ask questions and assume patient care.
[2019-11-05] MEDS: insulin glargine (Lantus) pen - multi-dose SQ SCH (20:27)
[2019-11-06] VITALS (19 sets, daily range): BP systolic 84–109; BP diastolic 42–61
[2019-11-06] MEDS: metoclopramide 5 mg/ml inj IV SCH ×5 (02:00→20:08)
[2019-11-06 03:12] LABS: BASOPHILS % (AUTO) 0.4 % (0-1); EOSINOPHILS # (AUTO) 0.1 X10'3 (0-0.9); EOSINOPHILS % (AUTO) 1.6 % (0-6); HEMATOCRIT 30.5 % (35.0-45.0); HEMOGLOBIN 10.2 g/dl (12.0-16.0); LYMPHOCYTES # (AUTO) 1.1 X10'3 (1.1-4.8); LYMPHOCYTES % (AUTO) 14.1 % (21-51); MEAN CORPUSCULAR HEMOGLOBIN 31.4 PG (27.0-31.0); MEAN CORPUSCULAR HGB CONC 33.6 g/dL (33.0-36.5); MEAN CORPUSCULAR VOLUME 93.6 FL (78-98); MEAN PLATELET VOLUME 7.8 FL (7.4-10.4); MONOCYTES % (AUTO) 12.4 % (2-12); NEUTROPHILS # (AUTO) 5.5 X10'3 (1.8-7.7); NEUTROPHILS % (AUTO) 71.5 % (42-75); PLATELET COUNT 344 X10'3 (140-440); RED BLOOD COUNT 3.26 X10'6 (4.20-5.60); RED CELL DISTRIBUTION WIDTH 14.8 % (11.5-14.5); WHITE BLOOD COUNT 7.7 X10'3 (4.5-11.0)
[2019-11-06 03:33] LABS: ALBUMIN 2.2 G/DL (3.4-5.0); ANION GAP 4 (8-16); BLOOD UREA NITROGEN 9 MG/DL (7-18); BUN/CREATININE RATIO 16.1 (6.6-38.0); CALCIUM 8.4 MG/DL (8.5-10.1); CHLORIDE 96 MMOL/L (99-107); CREATININE 0.56 MG/DL (0.40-0.90); GLUCOSE 90 MG/DL (70-104); SODIUM 128 MMOL/L (135-145); TOTAL CARBON DIOXIDE 27.6 MMOL/L (24-32); eGFR > 90 ML/MIN
[2019-11-06] MEDS: potassium CL 20mEq in D5-1/2NS 1,000 ML IV SCH (06:06)
--- NOTE | 2019-11-06 06:23 | NUR ---
Problems reprioritized. Patient report given, questions answered & plan of care reviewed with LUCIA Angelo.
[2019-11-06] MEDS: aspirin 81mg tablet.DR PO SCH (08:49)
[2019-11-06] MEDS: furosemide 40mg/4ml inj IV SCH (08:49)
[2019-11-06] MEDS: nicotine 21mg patch - 24 hr TD SCH (08:49)
[2019-11-06] MEDS: CefTRIAXone/D5W-Rocephin 1gm 50 ML IV SCH (08:49)
[2019-11-06] MEDS: lactobacillus rhamnosus 10,000 MMU CELLS/CAPSULE NG SCH ×2 (08:49→20:08)
[2019-11-06] MEDS: pantoprazole 40 MG vial IV SCH ×2 (08:50→20:08)
[2019-11-06] MEDS: normal saline 1000ml 1,000 ML IV SCH (14:20)
--- NOTE | 2019-11-06 15:54 | NUR ---
Patient in room CICU 2009. I have received report from LUCIA Angelo and had the opportunity to ask questions and assume patient care. Awaiting patient arrival to U 3024P.
--- NOTE | 2019-11-06 17:00 | NUR ---
Patient arrived to PCU 3024A. Transferred from to hospital bed with standby assistance. Patient oriented to room and to call light. Vital signs: T: 98.5, HR 93, RR 17, O2 98% on RA, BP 94/55. Pain 0/10. All immediate needs met at this time.
--- NOTE | 2019-11-06 17:28 | NUR ---
Transferred patient to room 3024A via wheelchair, with all belongings. Receiving RN at bedside.
--- NOTE | 2019-11-06 18:33 | NUR ---
Problems reprioritized. Patient report given, questions answered & plan of care reviewed with Chelsey MYERS. Patient stable at transfer of care.
--- NOTE | 2019-11-06 18:36 | NUR ---
[place]rientee documentation: I have reviewed and agree with all interventions, assessments performed and documented by LUCIA Mckinney. [place] Medication Administration: For this medication-pass time frame, all medication were reviewed, dispensed, administered and documented per hospital policy by Faye MYERS.
[2019-11-06] MEDS: rivaroxaban 20mg tablet PO SCH (18:55)
[2019-11-06] MEDS: insulin glargine (Lantus) pen - multi-dose SQ SCH (20:40)
[2019-11-07] MEDS: normal saline 1000ml 1,000 ML IV SCH ×3 (00:49→19:21)
[2019-11-07] MEDS: metoclopramide 5 mg/ml inj IV SCH ×4 (01:36→19:18)
[2019-11-07 02:00] VITALS: BP 97/63
--- NOTE | 2019-11-07 06:15 | NUR ---
Problems reprioritized. Patient report given, questions answered & plan of care reviewed with LUCIA Miranda.
--- NOTE | 2019-11-07 06:28 | NUR ---
Patient in room PCU 3024. I have received report from Chelsey MYERS and had the opportunity to ask questions and assume patient care. Patient in bed resting. Small amount of drainage noted on midline incision. Will continue to monitor. In no acute distress.
--- NOTE | 2019-11-07 06:28 | NUR ---
Patient in room PCU 3024. I have received report from Chelsey MYERS and had the opportunity to ask questions and assume patient care. Patient alert and resting in bed on transfer of care. small amount of drainage noted from abdominal incision. dressing changed. all current needs met.
[2019-11-07 07:16] VITALS: BP 88/54
[2019-11-07] MEDS: pantoprazole 40 MG vial IV SCH ×2 (07:29→19:18)
[2019-11-07] MEDS: lactobacillus rhamnosus 10,000 MMU CELLS/CAPSULE NG SCH ×2 (07:29→19:18)
[2019-11-07] MEDS: aspirin 81mg tablet.DR PO SCH (07:30)
[2019-11-07] MEDS: nicotine 21mg patch - 24 hr TD SCH (07:30)
--- NOTE | 2019-11-07 10:40 | NUR ---
Reassessment: TPN has been discontinued and pt continues on heart healthy diet. PO intake has improved since last RD assessment with average 50% PO intake however up to 75-100% PO intake x 2 most recent meals. LBM 11/05 documented as small with last moderate BM being 11/04. Pt receiving routine Reglan with PRN Lactulose last given 11/03. Will continue to follow and monitor need for nutrition intervention. Recommend: 1. Continue heart healthy diet 2. Monitor need for ONS 3. Routine bowel care 4. Scaled weights per rx Addendum: 11/07/19 at [address] Amended: Links added.
[2019-11-07 12:00] VITALS: BP 84/47
[2019-11-07 15:00] VITALS: BP 85/50
--- NOTE | 2019-11-07 16:48 | NUR ---
Spoke with Dr. Bañuelos about patient's midline incision. Island dressing placed this morning after patient ambulated to bathroom and had some serosanguineous drainage. Upon pulse and wound check patient had slightly saturated island dressing on distal portion of dressing after ambulation. No dehiscence, all sutures intact, patient denies pain. Dr. Bañuelos plans to take a look at incision and asked nursing to continue to monitor. No new orders at this time.
--- NOTE | 2019-11-07 17:12 | NUR ---
D/C Wound vac removed per Dr. Bañuelos. 19 bette noted on L groin area. 15 bette noted on R groin. Right groin had small amount of bleeding present upon removal of wound vac. Non-adherent foam dressing and Tegaderm applied to monitor for any additional drainage. Two island dressings were applied to midline abdominal incision to monitor for drainage at distal site of incision. Dr. Bañuelos notified of midline drainage. no new orders at this time.
--- NOTE | 2019-11-07 17:52 | NUR ---
Orientee documentation: I have reviewed and agree with all interventions, assessments performed and documented by LUCIA Mckinney. [place] Medication Administration: For this medication-pass time frame, all medication were reviewed, dispensed, administered and documented per hospital policy by LUCIA Mckinney.
[2019-11-07 18:00] VITALS: BP 104/66
--- NOTE | 2019-11-07 18:14 | NUR ---
Patient in room PCU 3024. I have received report from Ruth MYERS and Faye MYERS and had the opportunity to ask questions and assume patient care.
--- NOTE | 2019-11-07 18:24 | NUR ---
Problems reprioritized. Patient report given, questions answered & plan of care reviewed with LUCIA Joshi. Patient stable at transfer of care.
[2019-11-07] MEDS: rivaroxaban 20mg tablet PO SCH (18:41)
[2019-11-07] MEDS: insulin glargine (Lantus) pen - multi-dose SQ SCH (21:00)
[2019-11-07 22:00] VITALS: BP 98/50
--- NOTE | 2019-11-08 00:52 | NUR ---
Problems reprioritized. Patient report given, questions answered & plan of care reviewed with Pat RN.
--- NOTE | 2019-11-08 01:00 | NUR ---
received report from tele nurseMadelyn; arrived via bed & belongings; assisted to bed with walker & gait belt; tolerated activity
[2019-11-08 01:15] VITALS: BP 99/57
[2019-11-08] MEDS: metoclopramide 5 mg/ml inj IV SCH ×4 (01:21→20:00)
[2019-11-08 05:58] LABS: BASOPHILS % (AUTO) 0.6 % (0-1); EOSINOPHILS # (AUTO) 0.1 X10'3 (0-0.9); EOSINOPHILS % (AUTO) 1.5 % (0-6); HEMATOCRIT 30.1 % (35.0-45.0); HEMOGLOBIN 10.1 g/dl (12.0-16.0); LYMPHOCYTES # (AUTO) 1.2 X10'3 (1.1-4.8); LYMPHOCYTES % (AUTO) 18.7 % (21-51); MEAN CORPUSCULAR HEMOGLOBIN 31.5 PG (27.0-31.0); MEAN CORPUSCULAR HGB CONC 33.5 g/dL (33.0-36.5); MEAN PLATELET VOLUME 7.6 FL (7.4-10.4); MONOCYTES # (AUTO) 0.8 X10'3 (0-0.9); MONOCYTES % (AUTO) 11.9 % (2-12); NEUTROPHILS # (AUTO) 4.3 X10'3 (1.8-7.7); NEUTROPHILS % (AUTO) 67.3 % (42-75); PLATELET COUNT 428 X10'3 (140-440); RED CELL DISTRIBUTION WIDTH 15.1 % (11.5-14.5); WHITE BLOOD COUNT 6.3 X10'3 (4.5-11.0)
[2019-11-08 06:03] LABS: PARTIAL THROMBOPLASTIN TIME 31 SECONDS (22-32)
[2019-11-08 06:09] LABS: ALANINE AMINOTRANSFERASE 75 U/L (12-78); ALBUMIN 2.3 G/DL (3.4-5.0); ALBUMIN/GLOBULIN RATIO 0.6 (1.1-1.5); ALKALINE PHOSPHATASE 149 IU/L (46-116); ANION GAP 7 (8-16); ASPARTATE AMINO TRANSFERASE 44 U/L (10-37); BILIRUBIN,TOTAL 0.8 MG/DL (0.1-1.0); BLOOD UREA NITROGEN 9 MG/DL (7-18); BUN/CREATININE RATIO 19.1 (6.6-38.0); CALCIUM 8.3 MG/DL (8.5-10.1); CHLORIDE 99 MMOL/L (99-107); CREATININE 0.47 MG/DL (0.40-0.90); GLUCOSE 88 MG/DL (70-104); MAGNESIUM 1.7 MG/DL (1.5-2.4); PHOSPHORUS 3.3 MG/DL (2.3-4.5); POTASSIUM 3.7 MMOL/L (3.5-5.1); SODIUM 131 MMOL/L (135-145); TOTAL CARBON DIOXIDE 24.9 MMOL/L (24-32); TOTAL PROTEIN 5.9 G/DL (6.4-8.2); eGFR > 90 ML/MIN
--- NOTE | 2019-11-08 06:33 | NUR ---
Patient in room [facility] 349. I have received report from LUCIA Kerns and had the opportunity to ask questions and assume patient care.
--- NOTE | 2019-11-08 06:34 | NUR ---
checked q1hr; sleeping at intervals with resp even and unlabored; no c.'s of pain or discomfort; shift change report given to LUCIA Martell
[2019-11-08 07:00] VITALS: BP 94/55
[2019-11-08] MEDS: aspirin 81mg tablet.DR PO SCH (07:29)
[2019-11-08] MEDS: lactobacillus rhamnosus 10,000 MMU CELLS/CAPSULE NG SCH ×2 (07:29→19:24)
[2019-11-08] MEDS: pantoprazole 40 MG vial IV SCH ×2 (07:29→19:24)
[2019-11-08] MEDS: midodrine 5mg tablet PO SCH ×2 (07:29→17:18)
[2019-11-08] MEDS: nicotine 21mg patch - 24 hr TD SCH (07:30)
[2019-11-08 11:00] VITALS: BP 87/52
[2019-11-08] MEDS: rivaroxaban 20mg tablet PO SCH (17:18)
[2019-11-08 18:00] VITALS: BP 95/44
--- NOTE | 2019-11-08 18:37 | NUR ---
Patient in room [facility] 349. I have received report from LUCIA Martell and had the opportunity to ask questions and assume patient care.
--- NOTE | 2019-11-08 18:39 | NUR ---
Problems reprioritized. Patient report given, questions answered & plan of care reviewed with LUCIA Coleman.
[2019-11-08] MEDS: insulin glargine (Lantus) pen - multi-dose SQ SCH (21:00)
[2019-11-09] VITALS: BP 90/56
[2019-11-09] MEDS: midodrine 5mg tablet PO SCH ×2 (00:12→08:57)
[2019-11-09] MEDS: metoclopramide 5 mg/ml inj IV SCH ×2 (02:52→08:57)
[2019-11-09 06:13] LABS: BASOPHILS % (AUTO) 0.6 % (0-1); EOSINOPHILS # (AUTO) 0.1 X10'3 (0-0.9); EOSINOPHILS % (AUTO) 1.2 % (0-6); HEMATOCRIT 29.8 % (35.0-45.0); HEMOGLOBIN 10.3 g/dl (12.0-16.0); LYMPHOCYTES # (AUTO) 1.1 X10'3 (1.1-4.8); LYMPHOCYTES % (AUTO) 18.1 % (21-51); MEAN CORPUSCULAR HEMOGLOBIN 32.5 PG (27.0-31.0); MEAN CORPUSCULAR HGB CONC 34.6 g/dL (33.0-36.5); MEAN CORPUSCULAR VOLUME 94.1 FL (78-98); MEAN PLATELET VOLUME 7.5 FL (7.4-10.4); MONOCYTES # (AUTO) 0.7 X10'3 (0-0.9); MONOCYTES % (AUTO) 11.6 % (2-12); NEUTROPHILS # (AUTO) 4.4 X10'3 (1.8-7.7); NEUTROPHILS % (AUTO) 68.5 % (42-75); PLATELET COUNT 453 X10'3 (140-440); RED BLOOD COUNT 3.16 X10'6 (4.20-5.60); WHITE BLOOD COUNT 6.4 X10'3 (4.5-11.0)
[2019-11-09 06:19] LABS: PARTIAL THROMBOPLASTIN TIME 29 SECONDS (22-32)
--- NOTE | 2019-11-09 06:30 | NUR ---
Patient in room [facility] 349. I have received report from Virginia MYERS and had the opportunity to ask questions and assume patient care.
[2019-11-09 06:39] LABS: ALBUMIN 2.4 G/DL (3.4-5.0); ANION GAP 7 (8-16); BLOOD UREA NITROGEN 10 MG/DL (7-18); BUN/CREATININE RATIO 18.5 (6.6-38.0); CALCIUM 8.5 MG/DL (8.5-10.1); CHLORIDE 99 MMOL/L (99-107); CREATININE 0.54 MG/DL (0.40-0.90); GLUCOSE 93 MG/DL (70-104); MAGNESIUM 1.7 MG/DL (1.5-2.4); PHOSPHORUS 3.5 MG/DL (2.3-4.5); POTASSIUM 3.8 MMOL/L (3.5-5.1); SODIUM 134 MMOL/L (135-145); TOTAL CARBON DIOXIDE 27.9 MMOL/L (24-32); eGFR > 90 ML/MIN
--- NOTE | 2019-11-09 06:48 | NUR ---
Problems reprioritized. Patient report given, questions answered & plan of care reviewed with LUCIA Tipton.
[2019-11-09 07:00] VITALS: BP 103/58
[2019-11-09] MEDS: pantoprazole 40 MG vial IV SCH (08:57)
[2019-11-09] MEDS: aspirin 81mg tablet.DR PO SCH (08:57)
[2019-11-09] MEDS: lactobacillus rhamnosus 10,000 MMU CELLS/CAPSULE NG SCH (08:57)
[2019-11-09] MEDS: nicotine 21mg patch - 24 hr TD SCH (08:58)
[2019-11-09] MEDS ORDERED: LACT1CAP26 NG (10:36)
[2019-11-09] MEDS ORDERED: MIDO5TAB4 PO (10:36)
[2019-11-09] MEDS ORDERED: PANT-47 PO (10:36)
[2019-11-09] MEDS ORDERED: HYDR-4383 PO (10:36)
[2019-11-09] MEDS ORDERED: NICO-687 TD (10:36)
--- NOTE | 2019-11-09 11:18 | NUR ---
Correction Officer [facility] María Elena said that patient's insurance Medicare is pending eligibility at this time and so patient is uninsured at this time. Per patient, she does not need home health service as she has family to help her with her needs. She also stated that she has ability to pay for her new prescription.
[2019-11-09 12:08] VITALS: BP 90/55
--- NOTE | 2019-11-09 14:05 | NUR ---
Discharged patient home, discharge instructions given to patient. Patient verbalized understanding of all instructions made. Peripheral IV catheter removed, tip intact. Instructed patient to ensure she has all her belongings with her before leaving the hospital. New prescriptions were transmitted to the pharmacy of choice. Surgical wound dressing changed, no signs of infection noted. Bilateral groin incision have bette that were intact. Emphasized to patient the importance of follow up appointment. Patient was given a prescription savings card to help get discount.
== END 2019-11-09 14:05 | disposition home or self-care (01) | DRG 169 ==
LOC: ER 12:35 → CICU 2S 23:00 → PCU 3S 11-06 16:55 → SUR 3N 11-08 00:58
PROVIDERS: ADMIT Surgery; ATTEND Surgery
PROC: 041L0ZN Bypass Left Femoral Artery to Posterior Tibial Artery, Open Approach (ICD-10-PCS; 2019-10-28)
PROC: 04C00ZZ Extirpation of Matter from Abdominal Aorta, Open Approach (ICD-10-PCS; 2019-10-28)
PROC: B41J1ZZ Fluoroscopy of Other Lower Arteries using Low Osmolar Contrast (ICD-10-PCS; 2019-10-28)
PROC: 047K0ZZ Dilation of Right Femoral Artery, Open Approach (ICD-10-PCS; 2019-10-28)
PROC: 04CL0ZZ Extirpation of Matter from Left Femoral Artery, Open Approach (ICD-10-PCS; principal; 2019-10-28 17:17)
PROC: 04C00ZZ Extirpation of Matter from Abdominal Aorta, Open Approach (ICD-10-PCS; 2019-10-29)
PROC: 04CK0ZZ Extirpation of Matter from Right Femoral Artery, Open Approach (ICD-10-PCS; 2019-10-29)
PROC: 30233N1 Transfusion of Nonautologous Red Blood Cells into Peripheral Vein, Percutaneous Approach (ICD-10-PCS; 2019-10-29)
DX: T82.898A Other specified complication of vascular prosthetic devices, implants and grafts, initial encounter (principal); I73.9 Peripheral vascular disease, unspecified; I74.9 Embolism and thrombosis of unspecified artery; J44.9 Chronic obstructive pulmonary disease, unspecified; K56.7 Ileus, unspecified; E43 Unspecified severe protein-calorie malnutrition; Z68.23 Body mass index [BMI] 23.0-23.9, adult; F17.210 Nicotine dependence, cigarettes, uncomplicated; F12.90 Cannabis use, unspecified, uncomplicated; I99.8 Other disorder of circulatory system; K66.0 Peritoneal adhesions (postprocedural) (postinfection); I74.3 Embolism and thrombosis of arteries of the lower extremities; Y83.2 Surgical operation with anastomosis, bypass or graft as the cause of abnormal reaction of the patient, or of later complication, without mention of misadventure at the time of the procedure; Z88.6 Allergy status to analgesic agent; Z86.718 Personal history of other venous thrombosis and embolism; Z90.49 Acquired absence of other specified parts of digestive tract; Z87.01 Personal history of pneumonia (recurrent)
CPT/HCPCS: 36415; 36430; 36600; 71045; 73590; 74018; 75635; 76000; 80048; 80053; 81001; 82550; 82570; 82803; 82948; 83605; 83735; 83935; 84100; 84132; 84133; 84145; 84156; 84300; 84439; 84443; 84484; 85018; 85025; 85027; 85610; 85730; 86885; 86900; 86901; 86920; 87040; 87070; 87077; 87081; 87088; 87186; 87207; 93005; 93306; 93922; 93926; 93971; 94002; 94003; 94760; 97110; 97116; 97162; 97530; 99285; A4618; A6253; A6258; A6449; A7000; C1757; C1758; C1768; C9113; G0378; J0690; J0694; J0696; J1100; J1644; J1815; J1940; J2001; J2250; J2270; J2370; J2405; J2704; J2765; J2997; J3010; J3475; J3480; J3490; J7030; J7040; J7060; J7120; P9016; P9045; Q9967

== ENCOUNTER 2019-11-19 11:11 | Outpatient (CLI) | payer MEDICAID ==
[~2019-11-19 11:11] MED LIST changes: +ASPI-611 PO; -ASPI81TA52 PO; +CLOP75TA33 PO; -CLOP75TA35 PO; +HYDR-4383 PO; +LACT1CAP26 NG; +MIDO5TAB4 PO; +NICO-687 TD; -NO HOME MEDS; +PANT-47 PO
== END 2019-11-19 23:59 | disposition home or self-care (01) ==
LOC: VAS 11:11
PROVIDERS: ATTEND Surgery
DX: I70.202 Unspecified atherosclerosis of native arteries of extremities, left leg (principal); I82.3 Embolism and thrombosis of renal vein
CPT/HCPCS: 93922; 93925

== ENCOUNTER 2019-12-27 11:42 | Inpatient (IN) | payer MEDICAID ==
[2019-12-14 16:09] LABS: BASOPHILS % (AUTO) 0.7 % (0-1); EOSINOPHILS # (AUTO) 0.1 X10'3 (0-0.9); EOSINOPHILS % (AUTO) 2.4 % (0-6); LYMPHOCYTES # (AUTO) 2.2 X10'3 (1.1-4.8); MEAN CORPUSCULAR HEMOGLOBIN 30.7 PG (27.0-31.0); MEAN CORPUSCULAR HGB CONC 33.1 g/dL (33.0-36.5); MEAN CORPUSCULAR VOLUME 92.9 FL (78-98); MEAN PLATELET VOLUME 7.6 FL (7.4-10.4); MONOCYTES # (AUTO) 0.4 X10'3 (0-0.9); MONOCYTES % (AUTO) 8.3 % (2-12); NEUTROPHILS # (AUTO) 2.2 X10'3 (1.8-7.7); NEUTROPHILS % (AUTO) 44.6 % (42-75); PRE OP HEMATOCRIT 45.5 % (35.0-45.0); PRE OP PLATELET COUNT 199 X10'3 (140-440); RED BLOOD COUNT 4.89 X10'6 (4.20-5.60); RED CELL DISTRIBUTION WIDTH 14.2 % (11.5-14.5)
[2019-12-14 16:17] LABS: CLARITY,URINE SLIGHTLY CLOUDY (Clear); COLOR,URINE YELLOW (Yellow); GLUCOSE, URINE NEGATIVE (Neg); KETONES,URINE NEGATIVE (Neg); LEUKOCYTE ESTERASE ,URINE NEGATIVE (Neg); NITRITES, URINE NEGATIVE (Neg); OCCULT BLOOD,URINE NEGATIVE (Neg); PH,URINE 5.5 (4.8-8.0); PROTEIN,URINE NEGATIVE (Neg)
[2019-12-14 16:21] LABS: UA COLLECTION TYPE CLN CATCH MIDSTREAM
[2019-12-14 16:22] LABS: PRE OP PROTIME 10.7 SECONDS (9.0-12.0)
[2019-12-14 16:23] LABS: ALBUMIN 3.9 G/DL (3.4-5.0); ALBUMIN/GLOBULIN RATIO 0.9 (1.1-1.5); ALKALINE PHOSPHATASE 94 IU/L (46-116); BLOOD UREA NITROGEN 6 MG/DL (7-18); BUN/CREATININE RATIO 11.5 (6.6-38.0); CALCIUM 10.1 MG/DL (8.5-10.1); CHLORIDE 99 MMOL/L (99-107); CREATININE 0.52 MG/DL (0.40-0.90); PRE OP ALT 13 U/L (30-65); PRE OP ANION GAP 9 (8-16); PRE OP AST 15 U/L (10-37); PRE OP BILIRUB, TOTAL 0.5 MG/DL (0.0-1.0); PRE OP GLUCOSE 101 MG/DL (70-104); PRE OP POTASSIUM 3.6 MMOL/L (3.4-5.1); PRE OP SODIUM 137 MMOL/L (135-145); TOTAL CARBON DIOXIDE 29.3 MMOL/L (24-32); TOTAL PROTEIN 8.4 G/DL (6.4-8.2); eGFR > 90 ML/MIN
[2019-12-14 16:30] LABS: BACTERIA,URINE 2+ /HPF (Neg); MUCUS STRANDS MANY /LPF (Neg); RBC,URINE NONE SEEN /HPF (0-2); SQUAMOUS EPITHELIAL CELL,UR MANY /LPF (FEW)
[2019-12-27] VITALS (14 sets, daily range): BP systolic 96–128; BP diastolic 54–85
[~2019-12-27] VITALS: Ht 157.5 cm; Wt 49.9 kg
[~2019-12-27 11:42] MED LIST changes: -ASPI-611 PO; -CLOP75TA33 PO; -HYDR-4383 PO; -LACT1CAP26 NG; -MIDO5TAB4 PO; -NICO-687 TD; +NO HOME MEDS; -PANT-47 PO; -RIVA20TA PO; +ceFOXitin sod/dextrose 2g/50ml 50 ML IV ONE; +famotidine 20mg tablet PO ONE; +ringers solution, lacted 1,000 ML IV SCH
[2019-12-27] MEDS: ringers solution, lacted 1,000 ML IV SCH (12:22)
[2019-12-27] MEDS ORDERED: iohexol 350MG/ML 100ml bottle IV ONE (12:40)
[2019-12-27] MEDS ORDERED: iohexol 350 MG/ML 50ML vial IV ONE (12:40)
--- NOTE | 2019-12-27 13:38 | NUR ---
PEPCID PO WAS ADMINISTERED ORDERED , DID NOT SAVE IN [facility] AFTER SCANNED.
[2019-12-27 15:43] LABS: BASOPHILS % (AUTO) 0.5 % (0-1); EOSINOPHILS # (AUTO) 0.1 X10'3 (0-0.9); HEMATOCRIT 42.2 % (35.0-45.0); MEAN CORPUSCULAR HEMOGLOBIN 30.2 PG (27.0-31.0); MEAN CORPUSCULAR HGB CONC 33.1 g/dL (33.0-36.5); MEAN CORPUSCULAR VOLUME 91.2 FL (78-98); MEAN PLATELET VOLUME 7.7 FL (7.4-10.4); MONOCYTES # (AUTO) 0.4 X10'3 (0-0.9); MONOCYTES % (AUTO) 6.9 % (2-12); NEUTROPHILS # (AUTO) 3.7 X10'3 (1.8-7.7); NEUTROPHILS % (AUTO) 59.6 % (42-75); PLATELET COUNT 190 X10'3 (140-440); RED BLOOD COUNT 4.63 X10'6 (4.20-5.60); RED CELL DISTRIBUTION WIDTH 13.6 % (11.5-14.5); WHITE BLOOD COUNT 6.2 X10'3 (4.5-11.0)
[2019-12-27] MEDS ORDERED: magnesium hydroxide 30ml (MOM) UD suspension PO PRN (15:50)
[2019-12-27] MEDS ORDERED: mag hydrox/Alum hydrox/simeth 30ml oral suspension PO PRN (15:50)
[2019-12-27 15:55] LABS: PARTIAL THROMBOPLASTIN TIME 27 SECONDS (22-32)
[2019-12-27 15:56] LABS: ALANINE AMINOTRANSFERASE 19 U/L (12-78); ALBUMIN 3.7 G/DL (3.4-5.0); ALKALINE PHOSPHATASE 79 IU/L (46-116); ANION GAP 7 (8-16); ASPARTATE AMINO TRANSFERASE 18 U/L (10-37); BILIRUBIN,TOTAL 0.5 MG/DL (0.1-1.0); BLOOD UREA NITROGEN 5 MG/DL (7-18); BUN/CREATININE RATIO 12.8 (6.6-38.0); CALCIUM 9.6 MG/DL (8.5-10.1); CHLORIDE 101 MMOL/L (99-107); CREATININE 0.39 MG/DL (0.40-0.90); GLUCOSE 91 MG/DL (70-104); POTASSIUM 4.1 MMOL/L (3.5-5.1); SODIUM 135 MMOL/L (135-145); TOTAL CARBON DIOXIDE 27.5 MMOL/L (24-32); TOTAL PROTEIN 7.3 G/DL (6.4-8.2); eGFR > 90 ML/MIN
[2019-12-27] MEDS ORDERED: fentaNYL/PF 50MCG/1 ML 2ML syringe ONE ×2 (16:12→17:21)
[2019-12-27] MEDS ORDERED: LIDOcaine 1%/PF 5ML 10 MG/ML VIAL ONE (16:12)
[2019-12-27] MEDS ORDERED: midazolam 2 mg/2 ml injection ONE ×2 (16:12→16:51)
[2019-12-27] MEDS ORDERED: heparin 1,000 UNITS/NS 500ml 500 ML ONE (16:12)
[2019-12-27] MEDS ORDERED: iohexol 300mg/ml 100ml inj. ONE (16:13)
--- NOTE | 2019-12-27 16:14 | NUR ---
PT TO ROOM [address] ALCANTAR ADMITTED PT TO SURGICAL FLOOR, [facility] TO SEE PT RBEEKAH. BELONGING BAG W/ PT UPON TRANSFER TO ROOM REPORT GIVEN TO RN WHO ASSUMED CARE OF PT UPON TRANSFER.
--- NOTE | 2019-12-27 16:15 | NUR ---
PATIENT ARRIVED TO FLOOR. VSS. 1 BAG OF BELONGINGS. NO COMPLAINTS.
--- NOTE | 2019-12-27 16:25 | NUR ---
PATIENT PICKED UP FROM [facility], RN'S. 1 BAG OF BELONGINGS SENT WITH PATIENT.
[2019-12-27] MEDS ORDERED: tPA-cathflo 2mg/2ml IV flush 4 MG in normal saline 100ml IV soln 100 ML ICATH SCH (17:09)
--- NOTE | 2019-12-27 17:15 | NUR ---
REPORT CALLED TO LUCIA URRUTIA FOR PATIENT BEING TRANSFERRED TO 2013.
[2019-12-27] MEDS ORDERED: tPA-cathflo 2 MG/2 ml IV flush ONE (17:48)
[2019-12-27] MEDS: heparin 25,000 UNIT/250ml bag 250 ML IV SCH (19:12)
[2019-12-27 20:14] LABS: HEMATOCRIT 40.5 % (35.0-45.0); HEMOGLOBIN 13.4 g/dl (12.0-16.0); MEAN CORPUSCULAR HEMOGLOBIN 30.6 PG (27.0-31.0); MEAN CORPUSCULAR VOLUME 92.6 FL (78-98); MEAN PLATELET VOLUME 7.8 FL (7.4-10.4); PLATELET COUNT 165 X10'3 (140-440); RED BLOOD COUNT 4.38 X10'6 (4.20-5.60); RED CELL DISTRIBUTION WIDTH 13.8 % (11.5-14.5); WHITE BLOOD COUNT 5.1 X10'3 (4.5-11.0)
[2019-12-27 21:15] LABS: PARTIAL THROMBOPLASTIN TIME 33 SECONDS (22-32)
[2019-12-28] VITALS (23 sets, daily range): BP systolic 89–145; BP diastolic 48–79
[2019-12-28 00:58] LABS: HEMATOCRIT 39.9 % (35.0-45.0); HEMOGLOBIN 13.1 g/dl (12.0-16.0); MEAN CORPUSCULAR HEMOGLOBIN 30.1 PG (27.0-31.0); MEAN CORPUSCULAR VOLUME 91.3 FL (78-98); MEAN PLATELET VOLUME 7.8 FL (7.4-10.4); PLATELET COUNT 147 X10'3 (140-440); RED BLOOD COUNT 4.37 X10'6 (4.20-5.60); RED CELL DISTRIBUTION WIDTH 13.7 % (11.5-14.5); WHITE BLOOD COUNT 5.1 X10'3 (4.5-11.0)
[2019-12-28] MEDS ORDERED: HYDROcodone/acetaminophen 5mg/325mg tablet PO PRN (01:05)
[2019-12-28 01:33] LABS: PARTIAL THROMBOPLASTIN TIME 39 SECONDS (22-32)
--- NOTE | 2019-12-28 02:05 | NUR ---
At approx 0045 I found there to be significant bleeding from femoral access site. Sheets were saturated between patient's legs to approx 12 inches down from groin. Stopped heparin and TPA infusions. Notified Dr. Dangelo who said to leave the drips off. Vitals stable, labs drawn. No further bleeding seen as of now.
--- NOTE | 2019-12-28 04:19 | NUR ---
cath insertion site is still oozing, although has slowed down considerably. no hematoma
[2019-12-28] MEDS: HYDROcodone/acetaminophen 10/325mg tab PO PRN ×2 (05:10→18:59)
[2019-12-28 05:23] LABS: eGFR > 90 ML/MIN
[2019-12-28 05:30] LABS: BASOPHILS % (AUTO) 0.4 % (0-1); EOSINOPHILS % (AUTO) 0.6 % (0-6); LYMPHOCYTES # (AUTO) 1.2 X10'3 (1.1-4.8); LYMPHOCYTES % (AUTO) 19.2 % (21-51); MEAN CORPUSCULAR HEMOGLOBIN 30.7 PG (27.0-31.0); MEAN CORPUSCULAR HGB CONC 33.3 g/dL (33.0-36.5); MEAN CORPUSCULAR VOLUME 92.1 FL (78-98); MEAN PLATELET VOLUME 7.9 FL (7.4-10.4); MONOCYTES # (AUTO) 0.5 X10'3 (0-0.9); MONOCYTES % (AUTO) 7.5 % (2-12); NEUTROPHILS # (AUTO) 4.4 X10'3 (1.8-7.7); NEUTROPHILS % (AUTO) 72.3 % (42-75); PLATELET COUNT 134 X10'3 (140-440); RED BLOOD COUNT 4.23 X10'6 (4.20-5.60); RED CELL DISTRIBUTION WIDTH 13.8 % (11.5-14.5); WHITE BLOOD COUNT 6.1 X10'3 (4.5-11.0)
[2019-12-28 05:37] LABS: PARTIAL THROMBOPLASTIN TIME 33 SECONDS (22-32)
[2019-12-28] MEDS: pantoprazole 40 MG vial IV SCH (09:49)
[2019-12-28] MEDS ORDERED: heparin 10,000 units/1 ML INJ ONE (11:56)
[2019-12-28 12:02] LABS: BASOPHILS % (AUTO) 0.5 % (0-1); EOSINOPHILS % (AUTO) 0.5 % (0-6); HEMATOCRIT 36.6 % (35.0-45.0); HEMOGLOBIN 12.1 g/dl (12.0-16.0); LYMPHOCYTES # (AUTO) 1.5 X10'3 (1.1-4.8); LYMPHOCYTES % (AUTO) 28.9 % (21-51); MEAN CORPUSCULAR HEMOGLOBIN 30.6 PG (27.0-31.0); MEAN CORPUSCULAR HGB CONC 32.9 g/dL (33.0-36.5); MEAN CORPUSCULAR VOLUME 92.8 FL (78-98); MEAN PLATELET VOLUME 7.8 FL (7.4-10.4); MONOCYTES # (AUTO) 0.5 X10'3 (0-0.9); MONOCYTES % (AUTO) 9.1 % (2-12); NEUTROPHILS # (AUTO) 3.2 X10'3 (1.8-7.7); PLATELET COUNT 126 X10'3 (140-440); RED BLOOD COUNT 3.95 X10'6 (4.20-5.60); RED CELL DISTRIBUTION WIDTH 13.6 % (11.5-14.5); WHITE BLOOD COUNT 5.3 X10'3 (4.5-11.0)
[2019-12-28] MEDS ORDERED: LIDOcaine 1% (10mg/ml) 2ml vial ONE (12:05)
[2019-12-28 12:15] LABS: ALANINE AMINOTRANSFERASE 19 U/L (12-78); ALBUMIN 3.5 G/DL (3.4-5.0); ALBUMIN/GLOBULIN RATIO 1.1 (1.1-1.5); ALKALINE PHOSPHATASE 67 IU/L (46-116); ANION GAP 5 (8-16); ASPARTATE AMINO TRANSFERASE 16 U/L (10-37); BILIRUBIN,TOTAL 0.5 MG/DL (0.1-1.0); BLOOD UREA NITROGEN 9 MG/DL (7-18); CALCIUM 9.3 MG/DL (8.5-10.1); CHLORIDE 101 MMOL/L (99-107); GLUCOSE 94 MG/DL (70-104); SODIUM 136 MMOL/L (135-145); TOTAL CARBON DIOXIDE 30.2 MMOL/L (24-32); TOTAL PROTEIN 6.8 G/DL (6.4-8.2); eGFR > 90 ML/MIN
[2019-12-28] MEDS: ringers solution, lacted 1,000 ML IV SCH (12:23)
[2019-12-28] MEDS ORDERED: fentaNYL/PF 50MCG/1 ML 2ML syringe ONE ×2 (12:55→14:17)
[2019-12-28] MEDS ORDERED: propofol inj 20 ML IV ONE (12:56)
[2019-12-28] MEDS ORDERED: LIDOcaine 2% (20mg/ml) 5ml vial ONE (12:56)
[2019-12-28] MEDS ORDERED: rocuronium 10mg/ml inj IV ONE (12:56)
[2019-12-28] MEDS ORDERED: dexamethasone sod phosphate 10mg/ml inj ONE (13:10)
[2019-12-28] MEDS ORDERED: glycopyrrolate 0.2mg/ml inj ONE (13:10)
[2019-12-28] MEDS ORDERED: neostigmine methylsulfate 1 MG/ML 10ml vial ONE (13:10)
[2019-12-28] MEDS ORDERED: labetalol 20mg/4ml (5mg/ml) syringe IV ONE ×2 (13:10→13:53)
[2019-12-28] MEDS ORDERED: sevoflurane 250ml liquid IH ONE (13:10)
--- NOTE | 2019-12-28 13:15 | NUR ---
Patient to OR
[2019-12-28] MEDS ORDERED: ceFAZolin 1000mg inj ONE ×2 (13:33)
[2019-12-28] MEDS ORDERED: ondansetron/PF 4mg/2ml inj ONE (13:40)
[2019-12-28] MEDS ORDERED: albumin (Human) 5% 250ml 250 ML IV ONE ×2 (13:54→15:00)
[2019-12-28] MEDS ORDERED: ringers solution, lacted 1,000 ML IV SCH (13:57)
[2019-12-28] MEDS ORDERED: HYDROmorphone inj. 0.5 MG/0.5 ML DISP.SYRIN IV PRN ×2 (14:00)
[2019-12-28] MEDS ORDERED: morphine 4 MG/ML inj SYRINge IV PRN (14:00)
[2019-12-28] MEDS ORDERED: ondansetron/PF 4mg/2ml inj IV PRN (14:00)
[2019-12-28] MEDS ORDERED: morphine 2 MG/ML inj. syringe IV PRN (14:00)
[2019-12-28] MEDS ORDERED: hydrALAZINE 20mg/ml inj. IV PRN (14:00)
[2019-12-28] MEDS ORDERED: labetalol 20mg/4ml (5mg/ml) syringe IV PRN (14:00)
[2019-12-28] MEDS ORDERED: heparin 1,000unit/ml 10ml vial 10 ML ONE (14:03)
--- NOTE | 2019-12-28 14:15 | NUR ---
Pulled at 1030 to care for post op cabg pt with stroke alert. Break nurse assumes care
[2019-12-28] MEDS ORDERED: HYDROcodone/acetaminophen 10/325mg tab PO PRN (16:20)
[2019-12-28 16:43] LABS: PARTIAL THROMBOPLASTIN TIME > 139 SECONDS (22-32)
--- NOTE | 2019-12-28 17:11 | NUR ---
Patient arrived to ICU from OR and placed on monitor at 1610; no complaints of pain. Palpable pulse to Right dorsalis pedis. Critical ptt >139, per Dr. Ching, recheck at 1800 and D/C ART line if normal.
--- NOTE | 2019-12-28 18:21 | NUR ---
Problems reprioritized. Patient report given, questions answered & plan of care reviewed with noc RN
[2019-12-28 18:53] LABS: PARTIAL THROMBOPLASTIN TIME 29 SECONDS (22-32)
--- NOTE | 2019-12-28 23:10 | NUR ---
[facility] I have received report from Kanu MYERS and had the opportunity to ask questions and assume patient care. Addendum: 12/28/19 at 2311 by Venkat Masterson RN alice handy 1829 time
[2019-12-29] VITALS (25 sets, daily range): BP systolic 74–105; BP diastolic 38–58
[2019-12-29] MEDS: ceFAZolin 1GM/D5W- ADD-VANTAGE 50 ML IV SCH ×2 (00:36→08:35)
[2019-12-29] MEDS: HYDROcodone/acetaminophen 10/325mg tab PO PRN (05:17)
[2019-12-29 05:39] LABS: BASOPHILS % (AUTO) 0.2 % (0-1); EOSINOPHILS % (AUTO) 0 % (0-6); HEMATOCRIT 22.9 % (35.0-45.0); HEMOGLOBIN 7.8 g/dl (12.0-16.0); LYMPHOCYTES # (AUTO) 0.8 X10'3 (1.1-4.8); LYMPHOCYTES % (AUTO) 15.4 % (21-51); MEAN CORPUSCULAR HEMOGLOBIN 31.2 PG (27.0-31.0); MEAN CORPUSCULAR HGB CONC 33.9 g/dL (33.0-36.5); MEAN CORPUSCULAR VOLUME 92.1 FL (78-98); MEAN PLATELET VOLUME 8.2 FL (7.4-10.4); MONOCYTES # (AUTO) 0.4 X10'3 (0-0.9); MONOCYTES % (AUTO) 8.1 % (2-12); NEUTROPHILS # (AUTO) 3.8 X10'3 (1.8-7.7); NEUTROPHILS % (AUTO) 76.3 % (42-75); PLATELET COUNT 107 X10'3 (140-440); RED BLOOD COUNT 2.49 X10'6 (4.20-5.60); RED CELL DISTRIBUTION WIDTH 13.7 % (11.5-14.5)
--- NOTE | 2019-12-29 06:12 | NUR ---
Problems reprioritized. Patient report given, questions answered & plan of care reviewed with Thelma MYERS. Addendum: 12/29/19 at 0623 by Venkat Masterson RN Kanu MYERS*
[2019-12-29 06:24] LABS: ALBUMIN 3.1 G/DL (3.4-5.0); ANION GAP 5 (8-16); BLOOD UREA NITROGEN 6 MG/DL (7-18); CALCIUM 8.4 MG/DL (8.5-10.1); CHLORIDE 102 MMOL/L (99-107); GLUCOSE 138 MG/DL (70-104); POTASSIUM 4.1 MMOL/L (3.5-5.1); SODIUM 136 MMOL/L (135-145); TOTAL CARBON DIOXIDE 28.6 MMOL/L (24-32); eGFR > 90 ML/MIN
[2019-12-29] MEDS: clopidogrel 75mg tablet PO SCH (08:35)
[2019-12-29] MEDS: pantoprazole 40 MG vial IV SCH (08:35)
--- NOTE | 2019-12-29 09:31 | NUR ---
Dr. Chacon rounding and notified patient's drop in hgb from 12.1 to 7.8 with low blood pressures with SBP in the 80/90s; asymptomatic and denies light headed/dizziness. Orders to check Iron and start 325mg Iron BID.
[2019-12-29 09:56] LABS: IRON 57 UG/DL (49-151)
[2019-12-29] MEDS: ferrous gluconate 324mg tablet PO SCH ×2 (10:06→19:55)
[2019-12-29] MEDS: acetaminophen 325mg tablet PO PRN (10:08)
--- NOTE | 2019-12-29 12:30 | NUR ---
Dr. Anderson rounding for surgery; MD aware that patient's blood pressure has been in the upper 70s/80s with a MAP 59-65. Patient asymptomatic and continues to deny light headed/dizziness. Dr. Anderson aware of of low H/H as well; orders to recheck hemogram this afternoon.
--- NOTE | 2019-12-29 17:14 | NUR ---
Called lab to check 1600 hemogram; per lab, patient on their way up. Blood pressure still low SBP in the 80s, patient otherwise remains asymptomatic.
--- NOTE | 2019-12-29 17:15 | NUR ---
Patient report given to Janie MYERS
[2019-12-29 17:40] LABS: HEMOGLOBIN 7.2 g/dl (12.0-16.0); MEAN CORPUSCULAR HEMOGLOBIN 31.5 PG (27.0-31.0); MEAN CORPUSCULAR HGB CONC 33.7 g/dL (33.0-36.5); MEAN CORPUSCULAR VOLUME 93.5 FL (78-98); MEAN PLATELET VOLUME 8.4 FL (7.4-10.4); PLATELET COUNT 106 X10'3 (140-440); RED BLOOD COUNT 2.27 X10'6 (4.20-5.60); RED CELL DISTRIBUTION WIDTH 13.6 % (11.5-14.5); WHITE BLOOD COUNT 6.3 X10'3 (4.5-11.0)
[2019-12-29 17:43] LABS: HEMATOCRIT 21.2 % (35.0-45.0)
--- NOTE | 2019-12-29 17:51 | NUR ---
Hgb 7.2/ Hct 21.2, Dr Chacon aware, ordered ferrous sulfate if has not already been ordered.
[2019-12-29] MEDS ORDERED: albumin (human) 25% 100 ML IV solution IV ONE (17:55)
--- NOTE | 2019-12-29 18:27 | NUR ---
Problems reprioritized. Patient report given, questions answered & plan of care reviewed with Liz.
--- NOTE | 2019-12-29 18:30 | NUR ---
Patient in room CICU 2009. I have received report from Thelma MYERS and had the opportunity to ask questions and assume patient care.
[2019-12-29] MEDS: heparin 25,000 UNIT/250ml bag 250 ML IV SCH (18:47)
--- NOTE | 2019-12-29 21:00 | NUR ---
Patient up to chair during PM care. Patient assisted with all personal care. Bed linens changed. Will continue to monitor closely.
[2019-12-29] MEDS: midodrine 5mg tablet PO SCH (23:52)
[2019-12-30] VITALS (24 sets, daily range): BP systolic 82–132; BP diastolic 44–80
[2019-12-30 05:15] LABS: BASOPHILS % (AUTO) 0.2 % (0-1); EOSINOPHILS % (AUTO) 0.4 % (0-6); LYMPHOCYTES % (AUTO) 39.3 % (21-51); MEAN CORPUSCULAR HEMOGLOBIN 31.3 PG (27.0-31.0); MEAN CORPUSCULAR HGB CONC 33.9 g/dL (33.0-36.5); MEAN CORPUSCULAR VOLUME 92.5 FL (78-98); MEAN PLATELET VOLUME 8.7 FL (7.4-10.4); MONOCYTES # (AUTO) 0.5 X10'3 (0-0.9); MONOCYTES % (AUTO) 9.9 % (2-12); NEUTROPHILS # (AUTO) 2.6 X10'3 (1.8-7.7); NEUTROPHILS % (AUTO) 50.2 % (42-75); PLATELET COUNT 102 X10'3 (140-440); RED BLOOD COUNT 2.17 X10'6 (4.20-5.60); RED CELL DISTRIBUTION WIDTH 13.7 % (11.5-14.5); WHITE BLOOD COUNT 5.1 X10'3 (4.5-11.0)
[2019-12-30 05:24] LABS: HEMATOCRIT 20.1 % (35.0-45.0); HEMOGLOBIN 6.8 g/dl (12.0-16.0)
[2019-12-30 05:40] LABS: ALANINE AMINOTRANSFERASE 15 U/L (12-78); ALBUMIN 3.2 G/DL (3.4-5.0); ALBUMIN/GLOBULIN RATIO 1.3 (1.1-1.5); ALKALINE PHOSPHATASE 45 IU/L (46-116); ANION GAP 4 (8-16); ASPARTATE AMINO TRANSFERASE 12 U/L (10-37); BILIRUBIN,TOTAL 0.2 MG/DL (0.1-1.0); BLOOD UREA NITROGEN 8 MG/DL (7-18); CALCIUM 8.2 MG/DL (8.5-10.1); CHLORIDE 106 MMOL/L (99-107); CREATININE 0.47 MG/DL (0.40-0.90); GLUCOSE 98 MG/DL (70-104); POTASSIUM 3.4 MMOL/L (3.5-5.1); SODIUM 139 MMOL/L (135-145); TOTAL CARBON DIOXIDE 29.5 MMOL/L (24-32); TOTAL PROTEIN 5.7 G/DL (6.4-8.2); eGFR > 90 ML/MIN
--- NOTE | 2019-12-30 05:45 | NUR ---
Received critical HGB and HCT. Notified April Flex SANTACRUZ. New orders received. Will continue to monitor closely.
--- NOTE | 2019-12-30 06:00 | NUR ---
Patient in room CICU 2009. I have received report from Liz Eagle RN and had the opportunity to ask questions and assume patient care.
--- NOTE | 2019-12-30 06:22 | NUR ---
Problems reprioritized. Patient report given, questions answered & plan of care reviewed with Manuela MYERS.
[2019-12-30] MEDS: ferrous gluconate 324mg tablet PO SCH ×2 (08:34→20:10)
[2019-12-30] MEDS: pantoprazole 40 MG vial IV SCH (08:34)
[2019-12-30] MEDS: clopidogrel 75mg tablet PO SCH (08:34)
[2019-12-30] MEDS: midodrine 5mg tablet PO SCH ×2 (08:35→15:29)
[2019-12-30 09:05] LABS: HEMATOCRIT 25.8 % (35.0-45.0); HEMOGLOBIN 8.7 g/dl (12.0-16.0); MEAN CORPUSCULAR HEMOGLOBIN 30.2 PG (27.0-31.0); MEAN CORPUSCULAR HGB CONC 33.9 g/dL (33.0-36.5); MEAN CORPUSCULAR VOLUME 89.2 FL (78-98); MEAN PLATELET VOLUME 8.1 FL (7.4-10.4); PLATELET COUNT 100 X10'3 (140-440); RED CELL DISTRIBUTION WIDTH 17.5 % (11.5-14.5); WHITE BLOOD COUNT 6.8 X10'3 (4.5-11.0)
--- NOTE | 2019-12-30 09:52 | NUR ---
1unit of PRBC's given follow up H/H 8.7/25.8
--- NOTE | 2019-12-30 19:32 | NUR ---
Patient in room CICU 2009. I have received report from LUCIA Doherty and had the opportunity to ask questions and assume patient care.
--- NOTE | 2019-12-30 19:41 | NUR ---
Patient arrived to floor in w/c accompanied by aid. Moved to bed with minimal assistance. States prior to surgery she was up and going to the restoom herself but the salazar cath was placed for surgery and every now and again, there is blood in the urine. Pt states doctor is aware and this is the reason she still has the FC. States she had a BM yesterday 12/28, was up to the commode SBA for this after they had given her a liquid to make her go. Abd is distened. Patient states it is distended because she just ate. Confirms that her belly is typically a larger round, but not firm unless she has eaten. W[place] running at 75 low cont per orders. FC draining, clear, yellow. No blood noted. Skin check preformed. Bilateral pulses present via palpation. Patient has sugical inc. to midline abdomen. Pt states that this is the inc spot from blood clot in right leg and from the hernia repair.
[2019-12-30 19:45] LABS: BASOPHILS % (AUTO) 0.4 % (0-1); EOSINOPHILS # (AUTO) 0.1 X10'3 (0-0.9); EOSINOPHILS % (AUTO) 1.2 % (0-6); HEMATOCRIT 25.6 % (35.0-45.0); HEMOGLOBIN 8.8 g/dl (12.0-16.0); LYMPHOCYTES # (AUTO) 2.3 X10'3 (1.1-4.8); LYMPHOCYTES % (AUTO) 33.7 % (21-51); MEAN CORPUSCULAR HEMOGLOBIN 30.4 PG (27.0-31.0); MEAN CORPUSCULAR HGB CONC 34.5 g/dL (33.0-36.5); MEAN CORPUSCULAR VOLUME 87.9 FL (78-98); MEAN PLATELET VOLUME 8.2 FL (7.4-10.4); MONOCYTES # (AUTO) 0.7 X10'3 (0-0.9); MONOCYTES % (AUTO) 9.7 % (2-12); NEUTROPHILS # (AUTO) 3.7 X10'3 (1.8-7.7); PLATELET COUNT 114 X10'3 (140-440); RED BLOOD COUNT 2.91 X10'6 (4.20-5.60); RED CELL DISTRIBUTION WIDTH 17.9 % (11.5-14.5); WHITE BLOOD COUNT 6.7 X10'3 (4.5-11.0)
[2019-12-31] VITALS: BP 111/65
[2019-12-31] MEDS: midodrine 5mg tablet PO SCH ×3 (00:05→16:38)
--- NOTE | 2019-12-31 06:21 | NUR ---
Problems reprioritized. Patient report given, questions answered & plan of care reviewed with LUCIA Harper.
--- NOTE | 2019-12-31 06:26 | NUR ---
Patient in room [facility] 354. I have received report from Meredith MYERS and had the opportunity to ask questions and assume patient care.
--- NOTE | 2019-12-31 06:27 | NUR ---
Patient in room [facility] 354A. I have received report from DEBBIE Turk RN and had the opportunity to ask questions and assume patient care.
[2019-12-31 07:00] VITALS: BP 93/60
[2019-12-31 07:10] LABS: BASOPHILS % (AUTO) 0.6 % (0-1); EOSINOPHILS # (AUTO) 0.1 X10'3 (0-0.9); EOSINOPHILS % (AUTO) 2.6 % (0-6); HEMATOCRIT 26.9 % (35.0-45.0); LYMPHOCYTES # (AUTO) 1.8 X10'3 (1.1-4.8); LYMPHOCYTES % (AUTO) 36.4 % (21-51); MEAN CORPUSCULAR HEMOGLOBIN 29.5 PG (27.0-31.0); MEAN CORPUSCULAR HGB CONC 33.4 g/dL (33.0-36.5); MEAN CORPUSCULAR VOLUME 88.1 FL (78-98); MEAN PLATELET VOLUME 8.4 FL (7.4-10.4); MONOCYTES # (AUTO) 0.5 X10'3 (0-0.9); MONOCYTES % (AUTO) 11.2 % (2-12); NEUTROPHILS # (AUTO) 2.4 X10'3 (1.8-7.7); NEUTROPHILS % (AUTO) 49.2 % (42-75); PLATELET COUNT 127 X10'3 (140-440); RED BLOOD COUNT 3.05 X10'6 (4.20-5.60); RED CELL DISTRIBUTION WIDTH 17.4 % (11.5-14.5); WHITE BLOOD COUNT 4.9 X10'3 (4.5-11.0)
[2019-12-31 07:40] LABS: ALANINE AMINOTRANSFERASE 14 U/L (12-78); ALBUMIN 3.2 G/DL (3.4-5.0); ALBUMIN/GLOBULIN RATIO 1.1 (1.1-1.5); ALKALINE PHOSPHATASE 51 IU/L (46-116); ANION GAP 8 (8-16); ASPARTATE AMINO TRANSFERASE 10 U/L (10-37); BILIRUBIN,TOTAL 0.6 MG/DL (0.1-1.0); BLOOD UREA NITROGEN 7 MG/DL (7-18); BUN/CREATININE RATIO 18.9 (6.6-38.0); CHLORIDE 104 MMOL/L (99-107); CREATININE 0.37 MG/DL (0.40-0.90); GLUCOSE 89 MG/DL (70-104); POTASSIUM 3.4 MMOL/L (3.5-5.1); SODIUM 140 MMOL/L (135-145); eGFR > 90 ML/MIN
[2019-12-31] MEDS: pantoprazole 40mg Tablet.DR PO SCH (07:50)
[2019-12-31] MEDS: ferrous gluconate 324mg tablet PO SCH ×2 (07:51→19:19)
[2019-12-31] MEDS: clopidogrel 75mg tablet PO SCH (07:52)
--- NOTE | 2019-12-31 10:27 | NUR ---
Student Medication Administration: For this medication-pass time frame, all medication were reviewed, dispensed, administered and documented per hospital policy by Nancie supervisor public health nursing.
--- NOTE | 2019-12-31 10:27 | NUR ---
Student documentation: I have reviewed and agree with all interventions, assessments performed and documented by Nancie, psychiatric nursing aide.
[2019-12-31 11:08] VITALS: BP 101/62
--- NOTE | 2019-12-31 12:09 | NUR ---
Problems reprioritized. Patient report given, questions answered & plan of care reviewed with Meredith MYERS.
[2019-12-31 12:44] VITALS: BP 102/64
--- NOTE | 2019-12-31 16:52 | NUR ---
reviewed student nurse charting
--- NOTE | 2019-12-31 18:50 | NUR ---
Patient in room [facility] 354. I have received report from LUCIA Harper and had the opportunity to ask questions and assume patient care.
--- NOTE | 2019-12-31 19:09 | NUR ---
Problems reprioritized. Patient report given, questions answered & plan of care reviewed with DEBBIE Turk RN.
[2019-12-31] MEDS: acetaminophen 325mg tablet PO PRN (19:21)
[2019-12-31 19:33] VITALS: BP 119/70
[2020-01-01] VITALS (24 sets, daily range): BP systolic 91–151; BP diastolic 54–99
[2020-01-01] MEDS: midodrine 5mg tablet PO SCH ×4 (00:30→23:49)
[2020-01-01 05:27] LABS: PARTIAL THROMBOPLASTIN TIME 23 SECONDS (22-32)
[2020-01-01 05:32] LABS: BASOPHILS % (AUTO) 0.3 % (0-1); EOSINOPHILS # (AUTO) 0.1 X10'3 (0-0.9); EOSINOPHILS % (AUTO) 2.9 % (0-6); HEMATOCRIT 28.5 % (35.0-45.0); HEMOGLOBIN 9.5 g/dl (12.0-16.0); LYMPHOCYTES # (AUTO) 1.7 X10'3 (1.1-4.8); LYMPHOCYTES % (AUTO) 34.1 % (21-51); MEAN CORPUSCULAR HEMOGLOBIN 29.4 PG (27.0-31.0); MEAN CORPUSCULAR HGB CONC 33.2 g/dL (33.0-36.5); MEAN CORPUSCULAR VOLUME 88.6 FL (78-98); MEAN PLATELET VOLUME 8.1 FL (7.4-10.4); MONOCYTES # (AUTO) 0.4 X10'3 (0-0.9); MONOCYTES % (AUTO) 8.7 % (2-12); NEUTROPHILS # (AUTO) 2.8 X10'3 (1.8-7.7); PLATELET COUNT 163 X10'3 (140-440); RED BLOOD COUNT 3.21 X10'6 (4.20-5.60); RED CELL DISTRIBUTION WIDTH 16.8 % (11.5-14.5); WHITE BLOOD COUNT 5.1 X10'3 (4.5-11.0)
[2020-01-01 05:38] LABS: ANION GAP 8 (8-16); BLOOD UREA NITROGEN 9 MG/DL (7-18); BUN/CREATININE RATIO 23.7 (6.6-38.0); CHLORIDE 102 MMOL/L (99-107); CREATININE 0.38 MG/DL (0.40-0.90); GLUCOSE 101 MG/DL (70-104); POTASSIUM 3.6 MMOL/L (3.5-5.1); SODIUM 137 MMOL/L (135-145); TOTAL CARBON DIOXIDE 26.9 MMOL/L (24-32); eGFR > 90 ML/MIN
[2020-01-01 05:39] LABS: ALANINE AMINOTRANSFERASE 41 U/L (12-78); ALBUMIN 3.2 G/DL (3.4-5.0); ALKALINE PHOSPHATASE 73 IU/L (46-116); ASPARTATE AMINO TRANSFERASE 40 U/L (10-37); BILIRUBIN,TOTAL 0.5 MG/DL (0.1-1.0); TOTAL PROTEIN 6.3 G/DL (6.4-8.2)
--- NOTE | 2020-01-01 06:30 | NUR ---
Patient in room [facility] 354. I have received report from LUCIA Miller and had the opportunity to ask questions and assume patient care.
--- NOTE | 2020-01-01 06:36 | NUR ---
Problems reprioritized. Patient report given, questions answered & plan of care reviewed with LUCIA Dickens.
--- NOTE | 2020-01-01 06:38 | NUR ---
Patient in room [facility] 354. I have received report from Chrissie MYERS and had the opportunity to ask questions and assume patient care.
[2020-01-01] MEDS: ferrous gluconate 324mg tablet PO SCH ×2 (08:11→21:45)
[2020-01-01] MEDS: clopidogrel 75mg tablet PO SCH (08:12)
[2020-01-01] MEDS: pantoprazole 40mg Tablet.DR PO SCH (08:12)
--- NOTE | 2020-01-01 09:06 | NUR ---
Student Medication Administration: For this medication-pass time frame, all medication were reviewed, dispensed, administered and documented per hospital policy by [employer] nursing [employer].
--- NOTE | 2020-01-01 11:22 | NUR ---
Report called to LUCIA Valentin in recovery, pt to or via bed. Unable to start LR as pharmacy did not get in in time.
[2020-01-01] MEDS ORDERED: ringers solution, lacted 1,000 ML IV SCH ×2 (11:25→12:36)
[2020-01-01] MEDS ORDERED: clindamycin phosphate 150mg/ml inj. ONE (11:35)
[2020-01-01] MEDS ORDERED: gentamicin 40 MG/1 ML inj ONE (11:35)
[2020-01-01] MEDS ORDERED: midazolam 2 mg/2 ml injection ONE (11:37)
[2020-01-01] MEDS ORDERED: MIDAZolam 5mg/5ml vial ONE (11:38)
[2020-01-01] MEDS ORDERED: fentaNYL /PF 50mcg/ml 5ml ampule ONE (11:38)
[2020-01-01] MEDS ORDERED: dexamethasone sod phosphate 4mg/ml inj. ONE (11:40)
[2020-01-01] MEDS ORDERED: propofol inj 20 ML IV ONE (11:41)
[2020-01-01] MEDS ORDERED: LIDOcaine 2% (20mg/ml) 5ml vial ONE (11:41)
[2020-01-01] MEDS ORDERED: ondansetron/PF 4mg/2ml inj ONE (11:41)
[2020-01-01] MEDS ORDERED: rocuronium 10mg/ml inj IV ONE ×2 (11:41→13:47)
--- NOTE | 2020-01-01 11:42 | NUR ---
Student documentation: I have reviewed and agree with all interventions, assessments performed and documented by [facility], nursing home social worker.
[2020-01-01] MEDS ORDERED: neostigmine methylsulfate 1 MG/ML 10ml vial ONE (12:04)
[2020-01-01] MEDS ORDERED: phenylephrine 10mg/ml inj. ONE (12:04)
[2020-01-01] MEDS ORDERED: sevoflurane 250ml liquid IH ONE (12:04)
--- NOTE | 2020-01-01 12:07 | NUR ---
Problems reprioritized. Patient report given, questions answered & plan of care reviewed with Chrissie MYERS.
[2020-01-01] MEDS ORDERED: albumin (Human) 5% 250ml 250 ML IV ONE (12:38)
--- NOTE | 2020-01-01 12:38 | NUR ---
Initial: Pt admit for lower limb ischemia. Pt now s/p thrombectomy with a wound VAC in place. PO diet was advanced to regular and pt averaging 75% PO intake of meals. Pt now NPO for OR pending hernia repair. LBM 12/29. No nutrition intervention implemented at this time. Will continue to follow. Recommendations: 1) Advance to regular diet as medically indicated 2) Monitor need for ONS/additional protein post-op 3) Bowel care per rx 4) Scaled weights per rx Addendum: 01/01/20 at [address] Amended: Links added.
[2020-01-01] MEDS ORDERED: ondansetron/PF 4mg/2ml inj IV PRN (12:40)
[2020-01-01] MEDS ORDERED: enalaprilat dihydrate 2.5mg/2ml vial IV PRN (12:40)
[2020-01-01] MEDS ORDERED: hydrALAZINE 20mg/ml inj. IV PRN (12:40)
[2020-01-01] MEDS ORDERED: fentaNYL/PF 50MCG/1 ML 2ML syringe IV PRN ×2 (12:40)
[2020-01-01] MEDS ORDERED: morphine 4 MG/ML inj SYRINge IV PRN (12:40)
[2020-01-01] MEDS ORDERED: morphine 2 MG/ML inj. syringe IV PRN (12:40)
[2020-01-01] MEDS ORDERED: labetalol 20mg/4ml (5mg/ml) syringe IV ONE (13:13)
[2020-01-01] MEDS ORDERED: BUPIVACAINE liposomal/PF 13.3 MG/ML vial IM ONE (13:26)
[2020-01-01] MEDS ORDERED: BUPIVAcaine/PF 2.5mg/ml (0.25%) 10ml vial ONE (13:26)
[2020-01-01] MEDS ORDERED: fentaNYL/PF 50MCG/1 ML 2ML syringe ONE ×2 (15:18→15:20)
--- NOTE | 2020-01-01 15:47 | NUR ---
Received from OR via BED, accompanied by Anesthesiologist DR CONNER and report given by Anesthesiologist. PT DROWSY, DENIES PAIN, ABDOMEN W/DRSG, ABD BINDER COVERING CDI, DEEPA X 2 W/SANGUINOUS DRAINAGE TO BULB SX, THAYER CATHETER TO GRAVITY DRAINAGE W/DARK YELLOW URINE IN DRAINAGE BAG/TUBING, WOUND VAC TO RIGHT GROIN W/SCANT AMT OF BROWN DRAINAGE SETTINGS 75MMHG LCS. Addendum: 01/01/20 at 1717 by Shandra Cote RN Amended: Links added.
[2020-01-01] MEDS: ceFOXitin inj 1,000 MG in normal saline 100ml IV soln 100 ML IV SCH ×2 (16:00→23:40)
--- NOTE | 2020-01-01 17:57 | NUR ---
Report called to receiving nurse. Transferred via BED, GLASSES ONLY, NO OTHER Belongings, RECEIVING RN AT BEDSIDE TO RECEIVE PT, BLL, CALL LIGHT GIVEN, SIDE RAILS UP X 2. Special Issues communicated to receiving nurse. YES. Addendum: 01/01/20 at 1815 by Shandra Cote RN Amended: Links added.
--- NOTE | 2020-01-01 18:00 | NUR ---
Pt returned from OR via bed vss, DEEPA Bilateral with sanguinous drainage, bulb charged. FC in place. Discussed post op POC with verbal understanding. Bed low, call light in reach.
--- NOTE | 2020-01-01 18:20 | NUR ---
Problems reprioritized. Patient report given, questions answered & plan of care reviewed with Angela MYERS.
--- NOTE | 2020-01-01 18:28 | NUR ---
Patient in room Z[facility] 354. I have received report from LUCIA Dickens and had the opportunity to ask questions and assume patient care.
[2020-01-01] MEDS: HYDROmorphone 1 mg/ml syringe IV PRN (18:54)
[2020-01-01] MEDS: HYDROcodone/acetaminophen 10/325mg tab PO PRN (21:45)
[2020-01-02] VITALS: BP 148/99
[2020-01-02] MEDS: ceFOXitin inj 1,000 MG in normal saline 100ml IV soln 100 ML IV SCH ×2
[2020-01-02 00:30] VITALS: BP 160/83
[2020-01-02] MEDS: HYDROmorphone 1 mg/ml syringe IV PRN ×5 (01:33→23:39)
[2020-01-02] MEDS: ringers solution, lacted 1,000 ML IV SCH ×2 (02:40→15:44)
[2020-01-02 05:17] LABS: ALANINE AMINOTRANSFERASE 25 U/L (12-78); ALBUMIN 3.1 G/DL (3.4-5.0); ALBUMIN/GLOBULIN RATIO 1.1 (1.1-1.5); ALKALINE PHOSPHATASE 56 IU/L (46-116); ANION GAP 4 (8-16); ASPARTATE AMINO TRANSFERASE 17 U/L (10-37); BILIRUBIN,TOTAL 0.6 MG/DL (0.1-1.0); BLOOD UREA NITROGEN 14 MG/DL (7-18); BUN/CREATININE RATIO 23.7 (6.6-38.0); CALCIUM 8.5 MG/DL (8.5-10.1); CHLORIDE 102 MMOL/L (99-107); CREATININE 0.59 MG/DL (0.40-0.90); GLUCOSE 138 MG/DL (70-104); POTASSIUM 4.8 MMOL/L (3.5-5.1); SODIUM 133 MMOL/L (135-145); TOTAL CARBON DIOXIDE 26.8 MMOL/L (24-32); eGFR > 90 ML/MIN
[2020-01-02 05:19] LABS: BASOPHILS % (AUTO) 0.2 % (0-1); EOSINOPHILS % (AUTO) 0 % (0-6); HEMATOCRIT 23.8 % (35.0-45.0); HEMOGLOBIN 8.1 g/dl (12.0-16.0); LYMPHOCYTES # (AUTO) 0.8 X10'3 (1.1-4.8); LYMPHOCYTES % (AUTO) 7.7 % (21-51); MEAN CORPUSCULAR HGB CONC 34.2 g/dL (33.0-36.5); MEAN PLATELET VOLUME 8.2 FL (7.4-10.4); MONOCYTES # (AUTO) 1.1 X10'3 (0-0.9); MONOCYTES % (AUTO) 10.4 % (2-12); NEUTROPHILS # (AUTO) 8.8 X10'3 (1.8-7.7); NEUTROPHILS % (AUTO) 81.7 % (42-75); PLATELET COUNT 212 X10'3 (140-440); RED BLOOD COUNT 2.71 X10'6 (4.20-5.60); RED CELL DISTRIBUTION WIDTH 16.8 % (11.5-14.5); WHITE BLOOD COUNT 10.8 X10'3 (4.5-11.0)
--- NOTE | 2020-01-02 06:08 | NUR ---
Problems reprioritized. Patient report given, questions answered & plan of care reviewed with LUCIA Garcia.
--- NOTE | 2020-01-02 06:36 | NUR ---
Patient in room ZAYDA 354. I have received report from Tiny Walton RN and had the opportunity to ask questions and assume patient care.
[2020-01-02 07:00] VITALS: BP 143/95
[2020-01-02] MEDS ORDERED: ceFOXitin inj 1,000 MG in normal saline 100ml IV soln 100 ML IV SCH (08:00)
[2020-01-02] MEDS: pantoprazole 40mg Tablet.DR PO SCH (08:38)
[2020-01-02] MEDS: clopidogrel 75mg tablet PO SCH (08:38)
[2020-01-02] MEDS: midodrine 5mg tablet PO SCH ×3 (08:38→23:38)
[2020-01-02] MEDS: ferrous gluconate 324mg tablet PO SCH ×2 (08:38→19:33)
[2020-01-02] MEDS: ondansetron/PF 4mg/2ml inj IV PRN (11:09)
[2020-01-02] MEDS ORDERED: metoclopramide 5 mg/ml inj IV PRN (13:40)
[2020-01-02] MEDS: metoclopramide 5 mg/ml inj IV SCH ×2 (15:40→19:32)
--- NOTE | 2020-01-02 18:36 | NUR ---
Problems reprioritized. Patient report given, questions answered & plan of care reviewed with Rebecca MYERS.
--- NOTE | 2020-01-02 18:51 | NUR ---
Patient in room ZAYDA 354. I have received report from Ary MYERS and had the opportunity to ask questions and assume patient care.
[2020-01-02 20:00] VITALS: BP 141/85
[2020-01-03] VITALS (12 sets, daily range): BP systolic 100–141; BP diastolic 63–82
[2020-01-03] MEDS: metoclopramide 5 mg/ml inj IV SCH ×4 (02:06→19:57)
[2020-01-03] MEDS: ceFOXitin 2GM-NS 100mL ADDvant 100 ML IV SCH ×4 (02:06→19:57)
[2020-01-03] MEDS: ringers solution, lacted 1,000 ML IV SCH ×2 (02:14→16:11)
[2020-01-03 05:24] LABS: BASOPHILS % (AUTO) 0.1 % (0-1); EOSINOPHILS % (AUTO) 0 % (0-6); LYMPHOCYTES # (AUTO) 1.1 X10'3 (1.1-4.8); LYMPHOCYTES % (AUTO) 13.3 % (21-51); MEAN CORPUSCULAR HGB CONC 34.6 g/dL (33.0-36.5); MEAN CORPUSCULAR VOLUME 89.8 FL (78-98); MEAN PLATELET VOLUME 7.6 FL (7.4-10.4); MONOCYTES # (AUTO) 1.3 X10'3 (0-0.9); MONOCYTES % (AUTO) 15.2 % (2-12); NEUTROPHILS # (AUTO) 5.9 X10'3 (1.8-7.7); NEUTROPHILS % (AUTO) 71.4 % (42-75); PLATELET COUNT 236 X10'3 (140-440); RED BLOOD COUNT 2.07 X10'6 (4.20-5.60); RED CELL DISTRIBUTION WIDTH 17.4 % (11.5-14.5); WHITE BLOOD COUNT 8.3 X10'3 (4.5-11.0)
[2020-01-03 05:45] LABS: ALANINE AMINOTRANSFERASE 18 U/L (12-78); ALBUMIN 2.6 G/DL (3.4-5.0); ALBUMIN/GLOBULIN RATIO 0.9 (1.1-1.5); ALKALINE PHOSPHATASE 45 IU/L (46-116); ANION GAP 6 (8-16); ASPARTATE AMINO TRANSFERASE 16 U/L (10-37); BILIRUBIN,TOTAL 0.6 MG/DL (0.1-1.0); BLOOD UREA NITROGEN 12 MG/DL (7-18); CALCIUM 8.2 MG/DL (8.5-10.1); CHLORIDE 101 MMOL/L (99-107); CREATININE 0.63 MG/DL (0.40-0.90); GLUCOSE 114 MG/DL (70-104); SODIUM 135 MMOL/L (135-145); TOTAL CARBON DIOXIDE 28.3 MMOL/L (24-32); TOTAL PROTEIN 5.5 G/DL (6.4-8.2); eGFR > 90 ML/MIN
[2020-01-03 06:01] LABS: HEMATOCRIT 18.6 % (35.0-45.0); HEMOGLOBIN 6.4 g/dl (12.0-16.0)
--- NOTE | 2020-01-03 06:31 | NUR ---
Problems reprioritized. Patient report given, questions answered & plan of care reviewed with cristopher MYERS.
--- NOTE | 2020-01-03 06:41 | NUR ---
Problems reprioritized. Patient report given, questions answered & plan of care reviewed with Beatris MYERS.
--- NOTE | 2020-01-03 06:50 | NUR ---
DR. diop to follow up with [facility] to see if they want to transfuse and to put an order for type and screen in for the patient Addendum: 01/03/20 at 0651 by Rebecca Washburn RN Amended: Links added.
[2020-01-03 07:08] LABS: ANISOCYTOSIS 1+; HYPOCHROMASIA 1+; PLATELET ESTIMATE NORMAL
[2020-01-03 07:09] LABS: POLYCHROMASIA FEW
[2020-01-03] MEDS: midodrine 5mg tablet PO SCH ×3 (08:28→23:16)
[2020-01-03] MEDS: pantoprazole 40mg Tablet.DR PO SCH (08:29)
[2020-01-03] MEDS: ferrous gluconate 324mg tablet PO SCH ×2 (08:29→19:58)
[2020-01-03] MEDS: HYDROmorphone 1 mg/ml syringe IV PRN (08:31)
[2020-01-03 09:26] LABS: BASOPHILS % (AUTO) 0.1 % (0-1); EOSINOPHILS % (AUTO) 0 % (0-6); LYMPHOCYTES # (AUTO) 0.9 X10'3 (1.1-4.8); LYMPHOCYTES % (AUTO) 12.3 % (21-51); MEAN CORPUSCULAR HEMOGLOBIN 30.1 PG (27.0-31.0); MEAN CORPUSCULAR HGB CONC 33.6 g/dL (33.0-36.5); MEAN CORPUSCULAR VOLUME 89.5 FL (78-98); MEAN PLATELET VOLUME 7.7 FL (7.4-10.4); MONOCYTES # (AUTO) 1.1 X10'3 (0-0.9); MONOCYTES % (AUTO) 15.4 % (2-12); NEUTROPHILS % (AUTO) 72.2 % (42-75); PLATELET COUNT 240 X10'3 (140-440); RED BLOOD COUNT 2.06 X10'6 (4.20-5.60); RED CELL DISTRIBUTION WIDTH 17.2 % (11.5-14.5); WHITE BLOOD COUNT 6.9 X10'3 (4.5-11.0)
[2020-01-03 09:30] LABS: HEMATOCRIT 18.4 % (35.0-45.0); HEMOGLOBIN 6.2 g/dl (12.0-16.0)
--- NOTE | 2020-01-03 10:20 | NUR ---
Talked with Dr Antoine with regards H&H . Two units of blood ordered . Dr briceno also made aware of H&H. will continue to monitor
[2020-01-03] MEDS: clopidogrel 75mg tablet PO SCH (13:13)
--- NOTE | 2020-01-03 14:41 | NUR ---
patient felt nauseous, vomited 150mls greenish emesis, temp was 99.3 following this. Patient stated she felt better after this. rechecked temp was 98.7 following this B/P 129/78 HR 111. patient states at this time she feels good. will continue to monitor.
--- NOTE | 2020-01-03 16:59 | NUR ---
Student documentation: I have reviewed all interventions, assessments performed and documented by René GUZMÁN [facility]. Student Medication Administration: For all medication-pass' in the time frame of 1792-5152, all medication were reviewed, dispensed, administered and documented per hospital policy by René GUZMÁN from [facility].
[2020-01-03] MEDS: ondansetron/PF 4mg/2ml inj IV PRN (17:08)
--- NOTE | 2020-01-03 17:43 | NUR ---
patient tolerated two units of blood. B/P 127/74. Repeat CBC scheduled for 1800hrs. Dressing changed to midline and bilat eric drains. CDI.
--- NOTE | 2020-01-03 18:42 | NUR ---
Patient in room ZAYDA 354. I have received report from Beatris MYERS and had the opportunity to ask questions and assume patient care.
[2020-01-03 19:45] LABS: BASOPHILS % (AUTO) 0.4 % (0-1); EOSINOPHILS % (AUTO) 0.1 % (0-6); HEMATOCRIT 28.4 % (35.0-45.0); HEMOGLOBIN 9.7 g/dl (12.0-16.0); LYMPHOCYTES # (AUTO) 0.9 X10'3 (1.1-4.8); LYMPHOCYTES % (AUTO) 13.9 % (21-51); MEAN CORPUSCULAR HEMOGLOBIN 30.2 PG (27.0-31.0); MEAN CORPUSCULAR HGB CONC 34.1 g/dL (33.0-36.5); MEAN CORPUSCULAR VOLUME 88.6 FL (78-98); MEAN PLATELET VOLUME 7.5 FL (7.4-10.4); MONOCYTES % (AUTO) 15.5 % (2-12); NEUTROPHILS # (AUTO) 4.5 X10'3 (1.8-7.7); NEUTROPHILS % (AUTO) 70.1 % (42-75); PLATELET COUNT 215 X10'3 (140-440); RED CELL DISTRIBUTION WIDTH 15.4 % (11.5-14.5); WHITE BLOOD COUNT 6.4 X10'3 (4.5-11.0)
[2020-01-03] MEDS: lactobacillus rhamnosus 10,000 MMU CELLS/CAPSULE PO SCH (19:58)
[2020-01-04] VITALS: BP 135/87
[2020-01-04] MEDS: metoclopramide 5 mg/ml inj IV SCH ×4 (02:21→20:21)
[2020-01-04] MEDS: ceFOXitin 2GM-NS 100mL ADDvant 100 ML IV SCH ×4 (02:21→20:21)
[2020-01-04 03:01] LABS: OCCULT BLOOD STOOL NEGATIVE (Neg)
[2020-01-04] MEDS: ringers solution, lacted 1,000 ML IV SCH ×2 (04:18→17:38)
[2020-01-04 05:31] LABS: BASOPHILS % (AUTO) 0.2 % (0-1); EOSINOPHILS % (AUTO) 0.4 % (0-6); HEMATOCRIT 27.1 % (35.0-45.0); HEMOGLOBIN 9.3 g/dl (12.0-16.0); LYMPHOCYTES # (AUTO) 1.2 X10'3 (1.1-4.8); LYMPHOCYTES % (AUTO) 19.4 % (21-51); MEAN CORPUSCULAR HEMOGLOBIN 30.6 PG (27.0-31.0); MEAN CORPUSCULAR HGB CONC 34.5 g/dL (33.0-36.5); MEAN CORPUSCULAR VOLUME 88.6 FL (78-98); MEAN PLATELET VOLUME 7.3 FL (7.4-10.4); MONOCYTES % (AUTO) 16.2 % (2-12); NEUTROPHILS # (AUTO) 3.9 X10'3 (1.8-7.7); NEUTROPHILS % (AUTO) 63.8 % (42-75); PLATELET COUNT 207 X10'3 (140-440); RED BLOOD COUNT 3.05 X10'6 (4.20-5.60); RED CELL DISTRIBUTION WIDTH 15.4 % (11.5-14.5); WHITE BLOOD COUNT 6.1 X10'3 (4.5-11.0)
[2020-01-04 05:50] LABS: ALANINE AMINOTRANSFERASE 21 U/L (12-78); ALBUMIN 2.4 G/DL (3.4-5.0); ALBUMIN/GLOBULIN RATIO 0.8 (1.1-1.5); ALKALINE PHOSPHATASE 48 IU/L (46-116); ANION GAP 9 (8-16); ASPARTATE AMINO TRANSFERASE 19 U/L (10-37); BILIRUBIN,TOTAL 1.2 MG/DL (0.1-1.0); BLOOD UREA NITROGEN 8 MG/DL (7-18); BUN/CREATININE RATIO 14.8 (6.6-38.0); CALCIUM 8.2 MG/DL (8.5-10.1); CHLORIDE 101 MMOL/L (99-107); CREATININE 0.54 MG/DL (0.40-0.90); GLUCOSE 82 MG/DL (70-104); POTASSIUM 3.2 MMOL/L (3.5-5.1); SODIUM 135 MMOL/L (135-145); TOTAL CARBON DIOXIDE 24.6 MMOL/L (24-32); TOTAL PROTEIN 5.4 G/DL (6.4-8.2); eGFR > 90 ML/MIN
--- NOTE | 2020-01-04 06:24 | NUR ---
Problems reprioritized. Patient report given, questions answered & plan of care reviewed with Chrissie MYERS.
--- NOTE | 2020-01-04 06:28 | NUR ---
Patient in room ZAYDA 354. I have received report from LUCIA Fernandez and had the opportunity to ask questions and assume patient care.
[2020-01-04 06:57] VITALS: BP 139/88
[2020-01-04] MEDS: clopidogrel 75mg tablet PO SCH (07:28)
[2020-01-04] MEDS: pantoprazole 40mg Tablet.DR PO SCH (07:28)
[2020-01-04] MEDS: lactobacillus rhamnosus 10,000 MMU CELLS/CAPSULE PO SCH ×2 (07:28→20:21)
[2020-01-04] MEDS: midodrine 5mg tablet PO SCH ×2 (07:29→15:57)
[2020-01-04] MEDS: ferrous gluconate 324mg tablet PO SCH ×2 (07:29→20:21)
[2020-01-04 09:37] LABS: TOTAL CELLS COUNTED 100
[2020-01-04 09:38] LABS: PLATELET ESTIMATE NORMAL; POLYCHROMASIA 1+
[2020-01-04] MEDS ORDERED: potassium Cl 20 mEq SR tablet PO STA (10:04)
[2020-01-04 11:00] VITALS: BP 139/85
[2020-01-04] MEDS: HYDROmorphone 1 mg/ml syringe IV PRN (11:32)
[2020-01-04 18:00] VITALS: BP 130/80
--- NOTE | 2020-01-04 18:40 | NUR ---
I have received report from Kobi RN and had the opportunity to ask questions and assume patient care.
[2020-01-04 19:00] LABS: BASOPHILS % (AUTO) 0.3 % (0-1); EOSINOPHILS # (AUTO) 0.2 X10'3 (0-0.9); EOSINOPHILS % (AUTO) 2.5 % (0-6); HEMOGLOBIN 10.1 g/dl (12.0-16.0); LYMPHOCYTES # (AUTO) 1.6 X10'3 (1.1-4.8); LYMPHOCYTES % (AUTO) 25.6 % (21-51); MEAN CORPUSCULAR HEMOGLOBIN 29.9 PG (27.0-31.0); MEAN CORPUSCULAR HGB CONC 33.7 g/dL (33.0-36.5); MEAN CORPUSCULAR VOLUME 88.7 FL (78-98); MEAN PLATELET VOLUME 7.4 FL (7.4-10.4); MONOCYTES % (AUTO) 15.1 % (2-12); NEUTROPHILS # (AUTO) 3.6 X10'3 (1.8-7.7); NEUTROPHILS % (AUTO) 56.5 % (42-75); PLATELET COUNT 241 X10'3 (140-440); RED BLOOD COUNT 3.38 X10'6 (4.20-5.60); RED CELL DISTRIBUTION WIDTH 15.6 % (11.5-14.5); WHITE BLOOD COUNT 6.3 X10'3 (4.5-11.0)
[2020-01-05] VITALS: BP 121/80
[2020-01-05] MEDS: ceFOXitin 2GM-NS 100mL ADDvant 100 ML IV SCH ×4 (01:57→20:14)
[2020-01-05] MEDS: metoclopramide 5 mg/ml inj IV SCH ×4 (01:57→20:15)
[2020-01-05 05:40] LABS: BASOPHILS % (AUTO) 0.3 % (0-1); EOSINOPHILS # (AUTO) 0.2 X10'3 (0-0.9); EOSINOPHILS % (AUTO) 3.2 % (0-6); HEMATOCRIT 26.8 % (35.0-45.0); HEMOGLOBIN 9.2 g/dl (12.0-16.0); LYMPHOCYTES # (AUTO) 1.2 X10'3 (1.1-4.8); LYMPHOCYTES % (AUTO) 20.9 % (21-51); MEAN CORPUSCULAR HEMOGLOBIN 30.6 PG (27.0-31.0); MEAN CORPUSCULAR HGB CONC 34.4 g/dL (33.0-36.5); MEAN CORPUSCULAR VOLUME 88.9 FL (78-98); MEAN PLATELET VOLUME 7.2 FL (7.4-10.4); MONOCYTES # (AUTO) 0.9 X10'3 (0-0.9); MONOCYTES % (AUTO) 14.8 % (2-12); NEUTROPHILS # (AUTO) 3.6 X10'3 (1.8-7.7); NEUTROPHILS % (AUTO) 60.8 % (42-75); PLATELET COUNT 256 X10'3 (140-440); RED BLOOD COUNT 3.02 X10'6 (4.20-5.60); RED CELL DISTRIBUTION WIDTH 15.1 % (11.5-14.5); WHITE BLOOD COUNT 5.9 X10'3 (4.5-11.0)
[2020-01-05 05:54] LABS: ALBUMIN 2.3 G/DL (3.4-5.0); ANION GAP 9 (8-16); BLOOD UREA NITROGEN 4 MG/DL (7-18); BUN/CREATININE RATIO 8.3 (6.6-38.0); CALCIUM 8.3 MG/DL (8.5-10.1); CHLORIDE 99 MMOL/L (99-107); CREATININE 0.48 MG/DL (0.40-0.90); GLUCOSE 80 MG/DL (70-104); POTASSIUM 3.3 MMOL/L (3.5-5.1); SODIUM 134 MMOL/L (135-145); TOTAL CARBON DIOXIDE 25.9 MMOL/L (24-32); eGFR > 90 ML/MIN
--- NOTE | 2020-01-05 06:38 | NUR ---
Problems reprioritized. Patient report given, questions answered & plan of care reviewed with Petra MYERS.
[2020-01-05 07:00] VITALS: BP 120/76
[2020-01-05] MEDS: pantoprazole 40mg Tablet.DR PO SCH (08:34)
[2020-01-05] MEDS: ferrous gluconate 324mg tablet PO SCH ×2 (08:34→20:15)
[2020-01-05] MEDS: clopidogrel 75mg tablet PO SCH (08:34)
[2020-01-05] MEDS: lactobacillus rhamnosus 10,000 MMU CELLS/CAPSULE PO SCH ×2 (08:34→20:15)
[2020-01-05] MEDS: midodrine 5mg tablet PO SCH ×4 (08:34→23:45)
[2020-01-05] MEDS: HYDROcodone/acetaminophen 10/325mg tab PO PRN (08:35)
[2020-01-05 11:00] VITALS: BP 115/75
--- NOTE | 2020-01-05 12:00 | NUR ---
Spoke to MD Srivastava about A1c: 6.1. He is aware and does not wish to proceed with with DM protocol at this time. Addendum: 01/05/20 at 1826 by Petra John RN Wrong pt. Please disregard.
[2020-01-05] MEDS ORDERED: potassium Cl 20 mEq SR tablet PO ONE (13:25)
[2020-01-05 18:00] VITALS: BP 114/69
[2020-01-05] MEDS ORDERED: rivaroxaban 20mg tablet PO SCH (18:00)
--- NOTE | 2020-01-05 18:50 | NUR ---
Patient in room ZAYDA 354. I have received report from SAROJ MYERS and had the opportunity to ask questions and assume patient care.
--- NOTE | 2020-01-05 18:51 | NUR ---
Gave report to Prudence LUCIA.
[2020-01-05 18:58] LABS: BASOPHILS % (AUTO) 0.6 % (0-1); EOSINOPHILS # (AUTO) 0.3 X10'3 (0-0.9); HEMATOCRIT 28.4 % (35.0-45.0); HEMOGLOBIN 9.5 g/dl (12.0-16.0); LYMPHOCYTES # (AUTO) 1.5 X10'3 (1.1-4.8); LYMPHOCYTES % (AUTO) 24.2 % (21-51); MEAN CORPUSCULAR HEMOGLOBIN 30.2 PG (27.0-31.0); MEAN CORPUSCULAR HGB CONC 33.5 g/dL (33.0-36.5); MEAN CORPUSCULAR VOLUME 90.2 FL (78-98); MEAN PLATELET VOLUME 7.2 FL (7.4-10.4); MONOCYTES # (AUTO) 0.8 X10'3 (0-0.9); MONOCYTES % (AUTO) 13.5 % (2-12); NEUTROPHILS # (AUTO) 3.5 X10'3 (1.8-7.7); NEUTROPHILS % (AUTO) 56.7 % (42-75); PLATELET COUNT 276 X10'3 (140-440); RED BLOOD COUNT 3.15 X10'6 (4.20-5.60); RED CELL DISTRIBUTION WIDTH 15.5 % (11.5-14.5); WHITE BLOOD COUNT 6.2 X10'3 (4.5-11.0)
[2020-01-06] VITALS: BP 118/71
[2020-01-06] MEDS: metoclopramide 5 mg/ml inj IV SCH ×2 (02:12→08:13)
[2020-01-06] MEDS: ceFOXitin 2GM-NS 100mL ADDvant 100 ML IV SCH ×2 (02:12→08:13)
[2020-01-06 05:15] LABS: ALBUMIN 2.4 G/DL (3.4-5.0); ANION GAP 8 (8-16); BLOOD UREA NITROGEN 4 MG/DL (7-18); BUN/CREATININE RATIO 7.7 (6.6-38.0); CALCIUM 8.4 MG/DL (8.5-10.1); CHLORIDE 101 MMOL/L (99-107); CREATININE 0.52 MG/DL (0.40-0.90); GLUCOSE 89 MG/DL (70-104); POTASSIUM 3.8 MMOL/L (3.5-5.1); SODIUM 135 MMOL/L (135-145); TOTAL CARBON DIOXIDE 26.2 MMOL/L (24-32); eGFR > 90 ML/MIN
[2020-01-06 05:23] LABS: BASOPHILS % (AUTO) 0.4 % (0-1); EOSINOPHILS # (AUTO) 0.3 X10'3 (0-0.9); EOSINOPHILS % (AUTO) 5.9 % (0-6); HEMATOCRIT 27.8 % (35.0-45.0); HEMOGLOBIN 9.4 g/dl (12.0-16.0); LYMPHOCYTES # (AUTO) 1.3 X10'3 (1.1-4.8); LYMPHOCYTES % (AUTO) 23.7 % (21-51); MEAN CORPUSCULAR HEMOGLOBIN 30.3 PG (27.0-31.0); MEAN CORPUSCULAR HGB CONC 33.8 g/dL (33.0-36.5); MEAN CORPUSCULAR VOLUME 89.6 FL (78-98); MEAN PLATELET VOLUME 7.2 FL (7.4-10.4); MONOCYTES # (AUTO) 0.7 X10'3 (0-0.9); MONOCYTES % (AUTO) 14.1 % (2-12); NEUTROPHILS % (AUTO) 55.9 % (42-75); PLATELET COUNT 273 X10'3 (140-440); RED CELL DISTRIBUTION WIDTH 15.4 % (11.5-14.5); WHITE BLOOD COUNT 5.3 X10'3 (4.5-11.0)
--- NOTE | 2020-01-06 06:05 | NUR ---
Problems reprioritized. Patient report given, questions answered & plan of care reviewed with annabella MYERS.
--- NOTE | 2020-01-06 06:12 | NUR ---
Patient in room ZAYDA 354. I have received report from LUCIA Eid and had the opportunity to ask questions and assume patient care.
[2020-01-06 07:19] VITALS: BP 124/78
[2020-01-06] MEDS: lactobacillus rhamnosus 10,000 MMU CELLS/CAPSULE PO SCH (08:13)
[2020-01-06] MEDS: pantoprazole 40mg Tablet.DR PO SCH (08:13)
[2020-01-06] MEDS: midodrine 5mg tablet PO SCH (08:14)
[2020-01-06] MEDS: clopidogrel 75mg tablet PO SCH (08:14)
[2020-01-06] MEDS: ferrous gluconate 324mg tablet PO SCH (08:14)
[2020-01-06] MEDS ORDERED: CLOP75TA35 PO (12:32)
[2020-01-06] MEDS ORDERED: HYDR-4383 PO (12:32)
[2020-01-06] MEDS ORDERED: RIVA20TA PO (12:32)
--- NOTE | 2020-01-06 15:46 | NUR ---
Patient discharged via daughter and taken from unit via wheelchair with x1 staff. Patient alert, oriented and in no apparent distress at time of discharge. Patient PIV removed with cannula intact. Patient surgical drain removed. Home wound vac placed and patient stated an understanding of instructions. Patient discharge instructions discussed with her as well. Patient requested new prescriptions to be sent into [facility]. This was confirmed. Patient took all belongings with her including wound vac supplies. Patient was also given a prescription for Mellen and a copy was placed in the chart. Patient's daughter was called regarding discharge information as well as how to use the wound vac. Daughter stated an understanding.
== END 2020-01-06 14:41 | disposition home health service (06) | DRG 227 ==
LOC: PAS 11:42 → SUR 3N 15:49 → CICU 2S 18:20 → SUR 3N 12-30 19:40
PROVIDERS: ADMIT Surgery; ATTEND Surgery
PROC: B41F1ZZ Fluoroscopy of Right Lower Extremity Arteries using Low Osmolar Contrast (ICD-10-PCS; 2019-12-27)
PROC: 3E03317 Introduction of Other Thrombolytic into Peripheral Vein, Percutaneous Approach (ICD-10-PCS; 2019-12-27)
PROC: B4201ZZ Computerized Tomography (CT Scan) of Abdominal Aorta using Low Osmolar Contrast (ICD-10-PCS; 2019-12-27)
PROC: B42H1ZZ Computerized Tomography (CT Scan) of Bilateral Lower Extremity Arteries using Low Osmolar Contrast (ICD-10-PCS; 2019-12-27)
PROC: 0KUQ07Z Supplement Right Upper Leg Muscle with Autologous Tissue Substitute, Open Approach (ICD-10-PCS; 2019-12-28)
PROC: 04CK0ZZ Extirpation of Matter from Right Femoral Artery, Open Approach (ICD-10-PCS; 2019-12-28)
PROC: 04UK0KZ Supplement Right Femoral Artery with Nonautologous Tissue Substitute, Open Approach (ICD-10-PCS; 2019-12-28)
PROC: 30233M1 Transfusion of Nonautologous Plasma Cryoprecipitate into Peripheral Vein, Percutaneous Approach (ICD-10-PCS; 2019-12-28)
PROC: 30233N1 Transfusion of Nonautologous Red Blood Cells into Peripheral Vein, Percutaneous Approach (ICD-10-PCS; 2019-12-30)
PROC: 0WUF0JZ Supplement Abdominal Wall with Synthetic Substitute, Open Approach (ICD-10-PCS; 2020-01-01)
PROC: 3E0T3BZ Introduction of Anesthetic Agent into Peripheral Nerves and Plexi, Percutaneous Approach (ICD-10-PCS; 2020-01-01)
PROC: 0DNW0ZZ Release Peritoneum, Open Approach (ICD-10-PCS; principal; 2020-01-01 12:12)
DX: K43.2 Incisional hernia without obstruction or gangrene (principal); T82.868A Thrombosis due to vascular prosthetic devices, implants and grafts, initial encounter; F12.90 Cannabis use, unspecified, uncomplicated; D62 Acute posthemorrhagic anemia; I99.8 Other disorder of circulatory system; K56.7 Ileus, unspecified; Y83.8 Other surgical procedures as the cause of abnormal reaction of the patient, or of later complication, without mention of misadventure at the time of the procedure; G62.9 Polyneuropathy, unspecified; K66.0 Peritoneal adhesions (postprocedural) (postinfection); Z79.01 Long term (current) use of anticoagulants; Z79.02 Long term (current) use of antithrombotics/antiplatelets; Z82.49 Family history of ischemic heart disease and other diseases of the circulatory system; Y92.89 Other specified places as the place of occurrence of the external cause; Z88.5 Allergy status to narcotic agent; Z87.891 Personal history of nicotine dependence
CPT/HCPCS: 36245; 36415; 36430; 37211; 71045; 75635; 75736; 76937; 80048; 80053; 81001; 82272; 82565; 82948; 83540; 85007; 85008; 85025; 85027; 85384; 85610; 85730; 86885; 86900; 86901; 86920; 87070; 87075; 87081; 87088; 87102; 87635; 93005; 97110; 97116; 97161; 97530; 97535; 99152; 99153; A4215; A4618; A6253; A6258; A6449; A6550; A7000; C1729; C1751; C1757; C1758; C1768; C1769; C1781; C1894; C9113; C9290; G0378; J0690; J0694; J1100; J1170; J1580; J1644; J2001; J2250; J2270; J2370; J2405; J2704; J2710; J2765; J2997; J3010; J3490; J7040; J7120; P9012; P9016; P9045; P9047; Q9967

== ENCOUNTER 2020-05-17 10:53 | Inpatient (IN) | payer MEDICAID ==
[~2020-05-17] VITALS: Ht 160 cm; Wt 50.4 kg
[~2020-05-17 10:53] MED LIST changes: +CLOP75TA34 PO; +HYDR-4383 PO; -NO HOME MEDS; +RIVA20TA PO; -ceFOXitin sod/dextrose 2g/50ml 50 ML IV ONE; -famotidine 20mg tablet PO ONE; -ringers solution, lacted 1,000 ML IV SCH
--- NOTE | 2020-05-17 11:04 | NUR ---
Unable to feel pedal pulses. Attempted to use doppler and did not hear a pulse. Provider aware.
[2020-05-17] MEDS ORDERED: heparin 10,000 units/1 ML INJ IV PRN (11:15)
[2020-05-17] MEDS ORDERED: heparin 10,000 units/1 ML INJ IV ONE ×2 (11:15→11:30)
--- NOTE | 2020-05-17 11:50 | NUR ---
Vascular at bedside.
[2020-05-17] MEDS: heparin 25,000 UNIT/250ml bag 250 ML IV SCH (12:23)
[2020-05-17] MEDS ORDERED: iohexol 350MG/ML 100ml bottle IV ONE (12:36)
[2020-05-17] MEDS ORDERED: iohexol 350 MG/ML 50ML vial IV ONE (12:36)
[2020-05-17] MEDS ORDERED: METH-360 PO (12:39)
[2020-05-17] MEDS ORDERED: NAPR-56 PO (12:39)
[2020-05-17 12:44] LABS: BASOPHILS % (AUTO) 0.3 % (0-1); EOSINOPHILS % (AUTO) 0.3 % (0-6); HEMATOCRIT 44.7 % (35.0-45.0); LYMPHOCYTES # (AUTO) 1.2 X10'3 (1.1-4.8); LYMPHOCYTES % (AUTO) 18.7 % (21-51); MEAN CORPUSCULAR HEMOGLOBIN 31.3 PG (27.0-31.0); MEAN CORPUSCULAR HGB CONC 33.7 g/dL (33.0-36.5); MEAN CORPUSCULAR VOLUME 93.1 FL (78-98); MEAN PLATELET VOLUME 7.5 FL (7.4-10.4); MONOCYTES # (AUTO) 0.5 X10'3 (0-0.9); MONOCYTES % (AUTO) 8.3 % (2-12); NEUTROPHILS # (AUTO) 4.6 X10'3 (1.8-7.7); NEUTROPHILS % (AUTO) 72.4 % (42-75); PLATELET COUNT 232 X10'3 (140-440); RED CELL DISTRIBUTION WIDTH 15.6 % (11.5-14.5); WHITE BLOOD COUNT 6.4 X10'3 (4.5-11.0)
[2020-05-17 12:51] LABS: PARTIAL THROMBOPLASTIN TIME 24 SECONDS (22-32)
[2020-05-17 12:53] LABS: ALANINE AMINOTRANSFERASE 79 U/L (12-78); ALBUMIN 3.5 G/DL (3.4-5.0); ALBUMIN/GLOBULIN RATIO 0.8 (1.1-1.5); ALKALINE PHOSPHATASE 83 IU/L (46-116); ANION GAP 6 (8-16); ASPARTATE AMINO TRANSFERASE 273 U/L (10-37); BILIRUBIN,TOTAL 0.5 MG/DL (0.1-1.0); BLOOD UREA NITROGEN 6 MG/DL (7-18); BUN/CREATININE RATIO 13.3 (6.6-38.0); CALCIUM 9.3 MG/DL (8.5-10.1); CHLORIDE 95 MMOL/L (99-107); CREATININE 0.45 MG/DL (0.40-0.90); GLUCOSE 105 MG/DL (70-104); POTASSIUM 3.3 MMOL/L (3.5-5.1); SODIUM 131 MMOL/L (135-145); TOTAL CARBON DIOXIDE 29.8 MMOL/L (24-32); eGFR > 90 ML/MIN
[2020-05-17 13:07] LABS: CREATINE KINASE 6988 U/L (26-192)
[2020-05-17] MEDS ORDERED: normal saline 1000ml 1,000 ML IV ONE ×2 (14:30)
[2020-05-17] MEDS ORDERED: enalaprilat dihydrate 2.5mg/2ml vial IV PRN (14:45)
[2020-05-17] MEDS ORDERED: fentaNYL/PF 50MCG/1 ML 2ML syringe IV PRN ×2 (14:45)
[2020-05-17] MEDS ORDERED: morphine 4 MG/ML inj SYRINge IV PRN (14:45)
[2020-05-17] MEDS ORDERED: ondansetron/PF 4mg/2ml inj IV PRN ×3 (14:45→22:25)
[2020-05-17] MEDS ORDERED: morphine 2 MG/ML inj. syringe IV PRN (14:45)
[2020-05-17] MEDS ORDERED: hydrALAZINE 20mg/ml inj. IV PRN (14:45)
[2020-05-17] MEDS ORDERED: ringers solution, lacted 1,000 ML IV ONE (14:45)
[2020-05-17] MEDS ORDERED: ringers solution, lacted 1,000 ML IV SCH ×2 (14:45→21:30)
[2020-05-17] MEDS ORDERED: heparin 10,000 units/1 ML INJ ONE (15:09)
[2020-05-17] MEDS ORDERED: midazolam 2 mg/2 ml injection ONE (15:21)
[2020-05-17] MEDS ORDERED: fentaNYL /PF 50mcg/ml 5ml ampule ONE (15:21)
[2020-05-17] MEDS ORDERED: propofol inj 20 ML IV ONE (15:23)
[2020-05-17] MEDS ORDERED: LIDOcaine 2% (20mg/ml) 5ml vial ONE (15:24)
[2020-05-17] MEDS ORDERED: rocuronium 10mg/ml inj IV ONE ×3 (15:24→20:53)
[2020-05-17 15:36] LABS: CLARITY,URINE CLEAR (Clear); COLOR,URINE YELLOW (Yellow); GLUCOSE, URINE NEGATIVE (Neg); KETONES,URINE TRACE mg/dl (Neg); LEUKOCYTE ESTERASE ,URINE NEGATIVE (Neg); NITRITES, URINE NEGATIVE (Neg); OCCULT BLOOD,URINE NEGATIVE (Neg); PH,URINE 6.5 (4.8-8.0); PROTEIN,URINE NEGATIVE (Neg)
[2020-05-17 15:41] LABS: UA COLLECTION TYPE OTHER
--- NOTE | 2020-05-17 15:49 | NUR ---
Patient taken to OR
[2020-05-17] MEDS ORDERED: sevoflurane 250ml liquid IH ONE (15:55)
[2020-05-17] MEDS ORDERED: iohexol 300 MG/1 ML 50ml polymer ONE (17:05)
[2020-05-17 17:26] LABS: PARTIAL THROMBOPLASTIN TIME 65 SECONDS (22-32)
[2020-05-17] MEDS ORDERED: heparin 1,000unit/ml 10ml vial 10 ML ONE (17:34)
[2020-05-17] MEDS ORDERED: fentaNYL/PF 50MCG/1 ML 2ML syringe ONE ×2 (18:35→21:07)
[2020-05-17] MEDS ORDERED: phenylephrine 10mg/ml inj. ONE (18:50)
[2020-05-17] MEDS ORDERED: albumin (Human) 5% 250ml 250 ML IV ONE ×5 (18:53→20:52)
[2020-05-17] MEDS ORDERED: albumin (Human) 5% 250ml 750 ML IV ONE (19:10)
[2020-05-17 19:42] LABS: ISTAT ANION GAP 13 (8-12); ISTAT BUN 3 mg/dL (6-19); ISTAT CL 103 mmol/L (99-107); ISTAT CREATININE 0.2 mg/dL (0.6-1.1); ISTAT GLUCOSE 86 mg/dL (70-104); ISTAT HGB 8.5 g/dl (12.0-16.0); ISTAT Hct 25 %PCV (35-48); ISTAT IONIZED CALCIUM 0.94 mmol/L (1.03-1.32); ISTAT K 3.3 mmol/L (3.5-5.1); ISTAT NA 137 mmol/L (135-145); ISTAT TOTAL CO2 21 mmol/L (24-32); ISTAT eGFR > 90 ML/MIN
[2020-05-17 21:01] LABS: ISTAT ANION GAP 13 (8-12); ISTAT BUN 3 mg/dL (6-19); ISTAT CL 102 mmol/L (99-107); ISTAT CREATININE 0.3 mg/dL (0.6-1.1); ISTAT GLUCOSE 107 mg/dL (70-104); ISTAT HGB 8.8 g/dl (12.0-16.0); ISTAT Hct 26 %PCV (35-48); ISTAT IONIZED CALCIUM 0.95 mmol/L (1.03-1.32); ISTAT K 4.2 mmol/L (3.5-5.1); ISTAT NA 137 mmol/L (135-145); ISTAT TOTAL CO2 22 mmol/L (24-32); ISTAT eGFR > 90 ML/MIN
[2020-05-17] MEDS ORDERED: MIDAZolam 5mg/5ml vial ONE (21:07)
[2020-05-17] MEDS ORDERED: NORepinephrine 8mg/ 250ml NS 250 ML IV ONE (21:15)
[2020-05-17] MEDS ORDERED: midazolam 100mg in NS 100ml 100 ML IV SCH (21:35)
[2020-05-17] MEDS ORDERED: magnesium hydroxide 30ml (MOM) UD suspension PO PRN (22:25)
[2020-05-17] MEDS ORDERED: acetaminophen 325mg tablet PO PRN (22:25)
[2020-05-17] MEDS ORDERED: magnesium 4gm in 100ml NS 100 ML IV PRN (22:25)
[2020-05-17] MEDS ORDERED: magnesium 2GM in 50ml NS 50 ML IV PRN (22:25)
[2020-05-17] MEDS ORDERED: potassium Cl 40MEQ/250ML bag 270 ML IV PRN (22:25)
[2020-05-17 22:30] VITALS: BP 172/75
[2020-05-17] MEDS ORDERED: albuterol 2.5 MG/3 ML nebule NEB PRN (22:40)
[2020-05-17 22:45] VITALS: BP 132/66
[2020-05-17 22:49] LABS: ABG BASE EXCESS -9.4 mmol/L (-2.0-2.0); ABG OXYGEN SATURATION 99.1 % (94-97); ABG PCO2 (T) 38.4 mmHg (32.0-45.0); ABG PO2 (T) 272.9 mmHg (75.0-100.0); FCOHb 0.5 % (0.0-3.9); FMetHb 0.2 % (0.0-1.5); FO2Hb 98.4 % (94-97); PATIENT TEMPERATURE 36.7; PEEP 5 cm H2O; RESPIRATORY RATE 12 b/min; TIDAL VOLUME 450 mL; TOTAL HEMOGLOBIN 9.7 G/dl (12.0-16.0)
[2020-05-17] MEDS ORDERED: pantoprazole 40 MG vial IV ONE (22:55)
[2020-05-17] MEDS: ipratropium/albuterol 3ml nebule NEB SCH (22:55)
[2020-05-17 23:00] VITALS: BP 118/74
[2020-05-17 23:15] VITALS: BP 117/88
[2020-05-17 23:50] VITALS: BP 111/72
[2020-05-18] VITALS (36 sets, daily range): BP systolic 85–128; BP diastolic 44–76
[2020-05-18 00:44] LABS: BASOPHILS % (AUTO) 0.1 % (0-1); EOSINOPHILS % (AUTO) 0 % (0-6); HEMATOCRIT 25.3 % (35.0-45.0); HEMOGLOBIN 8.5 g/dl (12.0-16.0); LYMPHOCYTES # (AUTO) 0.7 X10'3 (1.1-4.8); LYMPHOCYTES % (AUTO) 6.2 % (21-51); MEAN CORPUSCULAR HEMOGLOBIN 31.1 PG (27.0-31.0); MEAN CORPUSCULAR HGB CONC 33.5 g/dL (33.0-36.5); MEAN CORPUSCULAR VOLUME 92.6 FL (78-98); MEAN PLATELET VOLUME 7.5 FL (7.4-10.4); MONOCYTES # (AUTO) 0.8 X10'3 (0-0.9); MONOCYTES % (AUTO) 6.7 % (2-12); NEUTROPHILS # (AUTO) 10.3 X10'3 (1.8-7.7); PLATELET COUNT 154 X10'3 (140-440); RED BLOOD COUNT 2.73 X10'6 (4.20-5.60); RED CELL DISTRIBUTION WIDTH 15.4 % (11.5-14.5); WHITE BLOOD COUNT 11.8 X10'3 (4.5-11.0)
[2020-05-18 00:50] LABS: ALANINE AMINOTRANSFERASE 67 U/L (12-78); ALBUMIN 3.2 G/DL (3.4-5.0); ALBUMIN/GLOBULIN RATIO 1.5 (1.1-1.5); ALKALINE PHOSPHATASE 38 IU/L (46-116); ANION GAP 17 (8-16); ASPARTATE AMINO TRANSFERASE 384 U/L (10-37); BILIRUBIN,TOTAL 1.3 MG/DL (0.1-1.0); BLOOD UREA NITROGEN 8 MG/DL (7-18); BUN/CREATININE RATIO 14.3 (6.6-38.0); CALCIUM 6.6 MG/DL (8.5-10.1); CHLORIDE 104 MMOL/L (99-107); CREATININE 0.56 MG/DL (0.40-0.90); GLUCOSE 168 MG/DL (70-104); MAGNESIUM 1.7 MG/DL (1.5-2.4); PHOSPHORUS 4.8 MG/DL (2.3-4.5); SODIUM 140 MMOL/L (135-145); TOTAL CARBON DIOXIDE 19.5 MMOL/L (24-32); TOTAL PROTEIN 5.3 G/DL (6.4-8.2); eGFR > 90 ML/MIN
[2020-05-18] MEDS: FENTANYL-0.9 % NACL/PF 100 ML IV PRN (01:55)
[2020-05-18] MEDS: ceFAZolin/D5W- 1GM premix 50 ML IV SCH ×2 (02:48)
[2020-05-18] MEDS: ipratropium/albuterol 3ml nebule NEB SCH ×6 (03:03→22:51)
[2020-05-18] MEDS ORDERED: albumin (Human) 5% 250ml 250 ML IV ONE ×4 (03:30→17:55)
[2020-05-18] MEDS: heparin 25,000 UNIT/250ml bag 250 ML IV SCH (03:39)
[2020-05-18 04:33] LABS: ABG BASE EXCESS -4.3 mmol/L (-2.0-2.0); ABG HCO3 20.8 mmol/L (22.0-26.0); ABG OXYGEN SATURATION 94.8 % (94-97); ABG PCO2 (T) 37.9 mmHg (32.0-45.0); ABG PO2 (T) 79.9 mmHg (75.0-100.0); FCOHb 1.5 % (0.0-3.9); FMetHb 0.6 % (0.0-1.5); FO2Hb 92.8 % (94-97); PATIENT TEMPERATURE 36.9; PEEP 5 cm H2O; RESPIRATORY RATE 14 b/min; TIDAL VOLUME 450 mL; TOTAL HEMOGLOBIN 6.1 G/dl (12.0-16.0)
[2020-05-18 05:01] LABS: BASOPHILS % (AUTO) 0.1 % (0-1); LYMPHOCYTES # (AUTO) 0.7 X10'3 (1.1-4.8); LYMPHOCYTES % (AUTO) 6.5 % (21-51); MEAN PLATELET VOLUME 7.8 FL (7.4-10.4); WHITE BLOOD COUNT 10.4 X10'3 (4.5-11.0)
[2020-05-18 05:02] LABS: EOSINOPHILS % (AUTO) 0.1 % (0-6); MEAN CORPUSCULAR HEMOGLOBIN 31.7 PG (27.0-31.0); MEAN CORPUSCULAR VOLUME 93.1 FL (78-98); MONOCYTES # (AUTO) 0.9 X10'3 (0-0.9); NEUTROPHILS # (AUTO) 8.7 X10'3 (1.8-7.7); NEUTROPHILS % (AUTO) 84.3 % (42-75); PLATELET COUNT 128 X10'3 (140-440); RED BLOOD COUNT 1.84 X10'6 (4.20-5.60); RED CELL DISTRIBUTION WIDTH 15.4 % (11.5-14.5)
[2020-05-18 05:09] LABS: HEMATOCRIT 17.1 % (35.0-45.0); HEMOGLOBIN 5.8 g/dl (12.0-16.0)
[2020-05-18 06:54] LABS: TOTAL CELLS COUNTED 100
[2020-05-18 06:56] LABS: PLATELET ESTIMATE DECREASED; POLYCHROMASIA FEW
[2020-05-18] MEDS: piperacillin/tazo 3.375gm/50ml 50 ML IV SCH ×4 (08:37→23:37)
[2020-05-18] MEDS: pantoprazole 40 MG vial IV SCH (08:38)
[2020-05-18 08:41] LABS: HEMATOCRIT 22.9 % (35.0-45.0); HEMOGLOBIN 7.8 g/dl (12.0-16.0); MEAN CORPUSCULAR HEMOGLOBIN 31.3 PG (27.0-31.0); MEAN CORPUSCULAR HGB CONC 34.1 g/dL (33.0-36.5); MEAN CORPUSCULAR VOLUME 92.1 FL (78-98); MEAN PLATELET VOLUME 7.9 FL (7.4-10.4); PLATELET COUNT 117 X10'3 (140-440); RED BLOOD COUNT 2.48 X10'6 (4.20-5.60); RED CELL DISTRIBUTION WIDTH 14.4 % (11.5-14.5); WHITE BLOOD COUNT 8.6 X10'3 (4.5-11.0)
[2020-05-18] MEDS ORDERED: NO HOME MEDS (10:42)
[2020-05-18] MEDS: sodium bicarbonate (8.4%) inj. 100 MEQ in dextrose 5%-water 1,000 ML IV SCH ×2 (11:12→12:15)
--- NOTE | 2020-05-18 12:36 | NUR ---
Shree Consult: Shree 10 w/ bilateral femoral surgical wound w/ vacs per EMR. Pt intubated admit DX bilateral LE ischemia now s/p R limb aortic graft thrombectomy, R sfa thrombectomy, L fem graft thrombectomy, revision L fem post tib bypass, L construction person thrombectomy, and graft placement w/ left sartorius muscle flap per EMR. Possible AKA vs BKA in future per MD note. Noted Creating Kinase 6988 yesterday. Noted BMI 18.0 but current ht 63in not accurate w/ true ht 62in from prior admits and currently no scaled wt this admit. If current wt accurate BMI 18.5; pt appears well-developed/well-nourished per ER note. TF recs below in case prolonged intubation post-op. Pt would benefit from Garrick ONS for wound healing once nutrition to start; would benefit from high protein ed once stable post-op as well. Will continue to monitor for additional protein/kcal needs post-op. Rec: 1. IF TF; Vital AF at 50ml/hr goal. Garrick ONS BID for wound healing if MD agreeable 2. IF TF; water flush 200ml Q6 and would benefit from Garrick administration BID w/ water flushes if MD agreeable. If Garrick w/ TF; mix one packet w/ 120ml free water and flush 30ml before/after administration 3. IF TF; PALB Q /; daily wts 4. MVI for wound healing needs once PO 5. routine bowel care post-op 6. scaled wt this admit 7. upon extubation; advance diet as medically indicated to heart healthy 8. high protein ed once stable post-op this admit as medically indicated Addendum: 05/18/20 at [address] Amended: Links added.
[2020-05-18] MEDS: clindamycin 600mg/D5W 50ml 50 ML IV SCH ×4 (13:07→23:37)
[2020-05-18] MEDS: vancomycin/NS 1 GM ADD-VANTAGE 250 ML IV SCH (13:07)
[2020-05-18] MEDS ORDERED: ceFAZolin/D5W- 1GM premix 50 ML IV SCH (13:17)
[2020-05-18] MEDS ORDERED: insulin Lispro (HumaLOG) vial - multi-dose SQ SCH (14:25)
[2020-05-18 14:30] LABS: HEMATOCRIT 24.5 % (35.0-45.0); HEMOGLOBIN 8.6 g/dl (12.0-16.0); MEAN CORPUSCULAR HEMOGLOBIN 32.6 PG (27.0-31.0); MEAN CORPUSCULAR VOLUME 93.2 FL (78-98); MEAN PLATELET VOLUME 7.8 FL (7.4-10.4); PLATELET COUNT 101 X10'3 (140-440); RED BLOOD COUNT 2.63 X10'6 (4.20-5.60); RED CELL DISTRIBUTION WIDTH 15.6 % (11.5-14.5)
[2020-05-18] MEDS: NORepinephrine 8mg/ 250ml NS 250 ML IV SCH (17:43)
--- NOTE | 2020-05-18 19:32 | NUR ---
Per dayshift RN patient levophed requirements increasing. Patient currently 100/51. RN informed provider Lorin Mccord. Order for CMP with PTT and hemogram at 1999. RN will continue to monitor
[2020-05-18] MEDS: midodrine 5mg tablet OGT SCH (19:51)
[2020-05-18] MEDS: acetaminophen 325mg tablet PO PRN (19:52)
[2020-05-18 20:24] LABS: HEMATOCRIT 23.8 % (35.0-45.0); HEMOGLOBIN 8.4 g/dl (12.0-16.0); MEAN CORPUSCULAR HEMOGLOBIN 32.6 PG (27.0-31.0); MEAN CORPUSCULAR HGB CONC 35.1 g/dL (33.0-36.5); MEAN CORPUSCULAR VOLUME 92.9 FL (78-98); MEAN PLATELET VOLUME 7.6 FL (7.4-10.4); PLATELET COUNT 113 X10'3 (140-440); RED BLOOD COUNT 2.56 X10'6 (4.20-5.60); RED CELL DISTRIBUTION WIDTH 15.6 % (11.5-14.5); WHITE BLOOD COUNT 10.6 X10'3 (4.5-11.0)
[2020-05-18 20:38] LABS: ALANINE AMINOTRANSFERASE 50 U/L (12-78); ALBUMIN 3.1 G/DL (3.4-5.0); ALBUMIN/GLOBULIN RATIO 1.9 (1.1-1.5); ANION GAP 8 (8-16); ASPARTATE AMINO TRANSFERASE 272 U/L (10-37); BLOOD UREA NITROGEN 8 MG/DL (7-18); CHLORIDE 101 MMOL/L (99-107); CREATININE 0.42 MG/DL (0.40-0.90); GLUCOSE 157 MG/DL (70-104); SODIUM 139 MMOL/L (135-145); TOTAL CARBON DIOXIDE 29.7 MMOL/L (24-32); TOTAL PROTEIN 4.7 G/DL (6.4-8.2); eGFR > 90 ML/MIN
[2020-05-18 20:40] LABS: ALKALINE PHOSPHATASE 27 IU/L (46-116)
[2020-05-18 20:42] LABS: CALCIUM 5.8 MG/DL (8.5-10.1); POTASSIUM 2.7 MMOL/L (3.5-5.1)
[2020-05-18 20:54] LABS: PARTIAL THROMBOPLASTIN TIME 129 SECONDS (22-32)
[2020-05-18] MEDS ORDERED: calcium gluconate inj. 3 GM in normal saline 100ml IV soln 100 ML IV ONE (20:55)
[2020-05-18] MEDS ORDERED: POTASSIUM BICARB 20meq eff tab 20 MEQ TABLET.EFF PO ONE (21:05)
[2020-05-18] MEDS ORDERED: POTASSIUM BICARB 20meq eff tab 20 MEQ TABLET.EFF NG PRN (21:05)
[2020-05-18] MEDS ORDERED: calcium gluconate inj. 3 GM in normal saline 100ml IV soln 70 ML IV ONE (21:16)
[2020-05-18] MEDS: normal saline 1000ml 1,000 ML IV SCH (21:49)
[2020-05-19] VITALS (24 sets, daily range): BP systolic 86–135; BP diastolic 44–78
[2020-05-19] MEDS: POTASSIUM BICARB 20meq eff tab 20 MEQ TABLET.EFF PO SCH ×2 (00:46→04:31)
[2020-05-19] MEDS: vancomycin/NS 1 GM ADD-VANTAGE 250 ML IV SCH ×2 (00:46→12:51)
[2020-05-19] MEDS: ipratropium/albuterol 3ml nebule NEB SCH ×2 (02:39→07:41)
[2020-05-19 02:57] LABS: BASOPHILS % (AUTO) 0.2 % (0-1); EOSINOPHILS % (AUTO) 0 % (0-6); HEMATOCRIT 23.3 % (35.0-45.0); HEMOGLOBIN 8.1 g/dl (12.0-16.0); LYMPHOCYTES # (AUTO) 2.4 X10'3 (1.1-4.8); LYMPHOCYTES % (AUTO) 26.7 % (21-51); MEAN CORPUSCULAR HEMOGLOBIN 32.3 PG (27.0-31.0); MEAN CORPUSCULAR HGB CONC 34.7 g/dL (33.0-36.5); MEAN CORPUSCULAR VOLUME 93.1 FL (78-98); MEAN PLATELET VOLUME 7.6 FL (7.4-10.4); MONOCYTES # (AUTO) 1.1 X10'3 (0-0.9); MONOCYTES % (AUTO) 11.8 % (2-12); NEUTROPHILS # (AUTO) 5.6 X10'3 (1.8-7.7); NEUTROPHILS % (AUTO) 61.3 % (42-75); PLATELET COUNT 115 X10'3 (140-440); RED CELL DISTRIBUTION WIDTH 15.6 % (11.5-14.5); WHITE BLOOD COUNT 9.2 X10'3 (4.5-11.0)
[2020-05-19 03:02] LABS: PARTIAL THROMBOPLASTIN TIME 57 SECONDS (22-32)
[2020-05-19 03:03] LABS: ALANINE AMINOTRANSFERASE 45 U/L (12-78); ALBUMIN 2.8 G/DL (3.4-5.0); ALBUMIN/GLOBULIN RATIO 1.6 (1.1-1.5); ANION GAP 7 (8-16); ASPARTATE AMINO TRANSFERASE 219 U/L (10-37); BILIRUBIN,TOTAL 1.8 MG/DL (0.1-1.0); BLOOD UREA NITROGEN 7 MG/DL (7-18); BUN/CREATININE RATIO 12.5 (6.6-38.0); CHLORIDE 103 MMOL/L (99-107); CREATININE 0.56 MG/DL (0.40-0.90); GLUCOSE 134 MG/DL (70-104); MAGNESIUM 1.3 MG/DL (1.5-2.4); PHOSPHORUS 1.9 MG/DL (2.3-4.5); POTASSIUM 3.9 MMOL/L (3.5-5.1); SODIUM 138 MMOL/L (135-145); TOTAL CARBON DIOXIDE 27.6 MMOL/L (24-32); TOTAL PROTEIN 4.5 G/DL (6.4-8.2); eGFR > 90 ML/MIN
[2020-05-19 03:05] LABS: ALKALINE PHOSPHATASE 27 IU/L (46-116)
[2020-05-19] MEDS ORDERED: Neutra Phos packet PO PRN (03:35)
[2020-05-19] MEDS ORDERED: sodium phosphate inj. 15 MMOL in dextrose 5%-water 250 ML IV PRN (03:35)
[2020-05-19] MEDS ORDERED: sodium phosphate inj. 30 MMOL in dextrose 5%-water 250 ML IV PRN (03:35)
[2020-05-19 03:42] LABS: ABG BASE EXCESS 0.9 mmol/L (-2.0-2.0); ABG HCO3 23.1 mmol/L (22.0-26.0); ABG OXYGEN SATURATION 95.1 % (94-97); ABG PCO2 (T) 28.5 mmHg (32.0-45.0); ABG PO2 (T) 69.4 mmHg (75.0-100.0); FCOHb 1.2 % (0.0-3.9); FMetHb 0.3 % (0.0-1.5); FO2Hb 93.7 % (94-97); PATIENT TEMPERATURE 37.7; PEEP 5 cm H2O; RESPIRATORY RATE 14 b/min; TIDAL VOLUME 450 mL; TOTAL HEMOGLOBIN 8.1 G/dl (12.0-16.0)
[2020-05-19] MEDS: clindamycin 600mg/D5W 50ml 50 ML IV SCH ×3 (07:06→23:05)
[2020-05-19] MEDS: midodrine 5mg tablet OGT SCH ×3 (07:08→16:20)
[2020-05-19] MEDS: pantoprazole 40 MG vial IV SCH (07:08)
[2020-05-19] MEDS: normal saline 1000ml 1,000 ML IV SCH ×2 (07:10→23:55)
[2020-05-19] MEDS: piperacillin/tazo 3.375gm/50ml 50 ML IV SCH ×3 (07:57→23:06)
[2020-05-19] MEDS: FENTANYL-0.9 % NACL/PF 100 ML IV PRN (11:31)
[2020-05-19] MEDS: NORepinephrine 8mg/ 250ml NS 250 ML IV SCH (12:30)
--- NOTE | 2020-05-19 12:42 | NUR ---
CONFIRMED ORDER WITH LITZY FOR PICC LINE ORDER VIA TELEPHONE FOR LEVO. PICC LINE INFORMATION REF: [id number] LOT: [id number] EXP: 01/08/2021
[2020-05-19] MEDS: heparin 25,000 UNIT/250ml bag 250 ML IV SCH (14:00)
[2020-05-19] MEDS ORDERED: heparin 25,000 UNIT/250ml bag 250 ML IV SCH (15:45)
[2020-05-19] MEDS: rivaroxaban 15mg tablet PO SCH (17:44)
[2020-05-19] MEDS: clopidogrel 75mg tablet PO SCH (17:44)
[2020-05-19] MEDS: HYDROcodone/acetaminophen 10/325mg tab PO PRN (19:32)
[2020-05-19 19:43] LABS: PARTIAL THROMBOPLASTIN TIME 86 SECONDS (22-32)
[2020-05-20] VITALS (27 sets, daily range): BP systolic 80–126; BP diastolic 41–76
[2020-05-20] MEDS ORDERED: VANCOMYCIN LEVEL IV ONE (00:30)
[2020-05-20] MEDS: vancomycin/NS 1 GM ADD-VANTAGE 250 ML IV SCH (01:00)
[2020-05-20 01:04] LABS: HEMOGLOBIN 7.2 g/dl (12.0-16.0); MEAN PLATELET VOLUME 7.5 FL (7.4-10.4); RED BLOOD COUNT 2.23 X10'6 (4.20-5.60); WHITE BLOOD COUNT 8.3 X10'3 (4.5-11.0)
[2020-05-20 01:06] LABS: BASOPHILS % (AUTO) 0.2 % (0-1); EOSINOPHILS % (AUTO) 0.1 % (0-6); LYMPHOCYTES # (AUTO) 1.8 X10'3 (1.1-4.8); LYMPHOCYTES % (AUTO) 21.2 % (21-51); MEAN CORPUSCULAR HEMOGLOBIN 32.2 PG (27.0-31.0); MEAN CORPUSCULAR HGB CONC 34.4 g/dL (33.0-36.5); MEAN CORPUSCULAR VOLUME 93.5 FL (78-98); MONOCYTES # (AUTO) 0.6 X10'3 (0-0.9); MONOCYTES % (AUTO) 7.8 % (2-12); NEUTROPHILS # (AUTO) 5.8 X10'3 (1.8-7.7); NEUTROPHILS % (AUTO) 70.7 % (42-75); PLATELET COUNT 97 X10'3 (140-440); RED CELL DISTRIBUTION WIDTH 15.8 % (11.5-14.5)
[2020-05-20 01:11] LABS: ALANINE AMINOTRANSFERASE 41 U/L (12-78); ALBUMIN 2.3 G/DL (3.4-5.0); ALKALINE PHOSPHATASE 38 IU/L (46-116); ASPARTATE AMINO TRANSFERASE 144 U/L (10-37); BILIRUBIN,TOTAL 0.9 MG/DL (0.1-1.0); BLOOD UREA NITROGEN 5 MG/DL (7-18); BUN/CREATININE RATIO 10.2 (6.6-38.0); CALCIUM 7.2 MG/DL (8.5-10.1); CREATININE 0.49 MG/DL (0.40-0.90); GLUCOSE 108 MG/DL (70-104); MAGNESIUM 2.2 MG/DL (1.5-2.4); PHOSPHORUS 2.2 MG/DL (2.3-4.5); TOTAL CARBON DIOXIDE 28.8 MMOL/L (24-32); TOTAL PROTEIN 4.5 G/DL (6.4-8.2); VANCOMYCIN,TROUGH 10.2 UG/ML (6.0-14.0); eGFR > 90 ML/MIN
[2020-05-20 01:12] LABS: HEMATOCRIT 20.9 % (35.0-45.0)
[2020-05-20 01:14] LABS: PARTIAL THROMBOPLASTIN TIME 76 SECONDS (22-32)
[2020-05-20 01:18] LABS: ANION GAP 2 (8-16); CHLORIDE 101 MMOL/L (99-107); POTASSIUM 3.9 MMOL/L (3.5-5.1); SODIUM 132 MMOL/L (135-145)
[2020-05-20] MEDS: HYDROcodone/acetaminophen 10/325mg tab PO PRN ×2 (05:45→15:55)
[2020-05-20] MEDS: rivaroxaban 15mg tablet PO SCH ×2 (07:01→17:24)
[2020-05-20] MEDS: clopidogrel 75mg tablet PO SCH (07:01)
[2020-05-20] MEDS: midodrine 5mg tablet OGT SCH ×3 (07:01→15:55)
[2020-05-20] MEDS: pantoprazole 40 MG vial IV SCH (07:02)
[2020-05-20] MEDS: clindamycin 600mg/D5W 50ml 50 ML IV SCH ×2 (07:08→15:55)
[2020-05-20] MEDS: normal saline 1000ml 1,000 ML IV SCH (07:08)
[2020-05-20] MEDS: piperacillin/tazo 3.375gm/50ml 50 ML IV SCH ×2 (08:25→15:55)
[2020-05-20] MEDS: NORepinephrine 8mg/ 250ml NS 250 ML IV SCH (08:55)
[2020-05-20] MEDS: VANCOmycin 1250MG/NS 250ml Bag 250 ML IV SCH ×2 (09:11→20:57)
[2020-05-20 09:16] LABS: HEMATOCRIT 25.9 % (35.0-45.0); HEMOGLOBIN 8.8 g/dl (12.0-16.0); MEAN CORPUSCULAR HEMOGLOBIN 31.9 PG (27.0-31.0); MEAN CORPUSCULAR HGB CONC 33.9 g/dL (33.0-36.5); MEAN CORPUSCULAR VOLUME 94.1 FL (78-98); MEAN PLATELET VOLUME 7.5 FL (7.4-10.4); PLATELET COUNT 95 X10'3 (140-440); RED BLOOD COUNT 2.76 X10'6 (4.20-5.60); RED CELL DISTRIBUTION WIDTH 15.6 % (11.5-14.5); WHITE BLOOD COUNT 6.9 X10'3 (4.5-11.0)
[2020-05-20] MEDS ORDERED: normal saline 1000ml 1,000 ML IV ONE (11:15)
[2020-05-20] MEDS ORDERED: normal saline 1000ml IV bolus over 1 hour IV ONE (11:15)
[2020-05-20] MEDS: lactobacillus rhamnosus 10,000 MMU CELLS/CAPSULE PO SCH (20:57)
[2020-05-21] VITALS (25 sets, daily range): BP systolic 86–128; BP diastolic 52–74
[2020-05-21 02:31] LABS: BASOPHILS % (AUTO) 0.2 % (0-1); EOSINOPHILS % (AUTO) 0.1 % (0-6); HEMATOCRIT 25.5 % (35.0-45.0); HEMOGLOBIN 8.7 g/dl (12.0-16.0); LYMPHOCYTES # (AUTO) 0.9 X10'3 (1.1-4.8); MEAN CORPUSCULAR HEMOGLOBIN 32.3 PG (27.0-31.0); MEAN CORPUSCULAR HGB CONC 34.3 g/dL (33.0-36.5); MEAN CORPUSCULAR VOLUME 94.2 FL (78-98); MEAN PLATELET VOLUME 7.5 FL (7.4-10.4); MONOCYTES # (AUTO) 0.8 X10'3 (0-0.9); NEUTROPHILS % (AUTO) 80.7 % (42-75); PLATELET COUNT 118 X10'3 (140-440); RED BLOOD COUNT 2.71 X10'6 (4.20-5.60); RED CELL DISTRIBUTION WIDTH 15.1 % (11.5-14.5); WHITE BLOOD COUNT 8.6 X10'3 (4.5-11.0)
[2020-05-21 02:46] LABS: ALANINE AMINOTRANSFERASE 36 U/L (12-78); ALBUMIN/GLOBULIN RATIO 0.8 (1.1-1.5); ALKALINE PHOSPHATASE 51 IU/L (46-116); ANION GAP 9 (8-16); ASPARTATE AMINO TRANSFERASE 105 U/L (10-37); BILIRUBIN,TOTAL 0.9 MG/DL (0.1-1.0); BLOOD UREA NITROGEN 6 MG/DL (7-18); BUN/CREATININE RATIO 13.6 (6.6-38.0); CHLORIDE 103 MMOL/L (99-107); CREATININE 0.44 MG/DL (0.40-0.90); GLUCOSE 101 MG/DL (70-104); MAGNESIUM 1.6 MG/DL (1.5-2.4); PHOSPHORUS 1.8 MG/DL (2.3-4.5); SODIUM 135 MMOL/L (135-145); TOTAL CARBON DIOXIDE 23.2 MMOL/L (24-32); TOTAL PROTEIN 4.6 G/DL (6.4-8.2); eGFR > 90 ML/MIN
[2020-05-21 02:52] LABS: CALCIUM 7.4 MG/DL (8.5-10.1)
[2020-05-21 03:30] LABS: PARTIAL THROMBOPLASTIN TIME 43 SECONDS (22-32)
[2020-05-21] MEDS: potassium Cl 40MEQ/250ML bag 270 ML IV PRN ×2 (04:11→07:01)
[2020-05-21] MEDS: normal saline 1000ml 1,000 ML IV SCH ×2 (04:11→15:55)
[2020-05-21] MEDS: HYDROcodone/acetaminophen 10/325mg tab PO PRN ×2 (06:09→14:40)
[2020-05-21] MEDS: rivaroxaban 15mg tablet PO SCH ×2 (07:38→17:07)
[2020-05-21] MEDS: midodrine 5mg tablet OGT SCH ×3 (07:38→17:07)
[2020-05-21] MEDS: lactobacillus rhamnosus 10,000 MMU CELLS/CAPSULE PO SCH ×2 (07:39→19:54)
[2020-05-21] MEDS: pantoprazole 40mg Tablet.DR PO SCH (07:39)
[2020-05-21] MEDS: clopidogrel 75mg tablet PO SCH (07:39)
[2020-05-21] MEDS: clindamycin 600mg/D5W 50ml 50 ML IV SCH ×4 (07:42→22:47)
[2020-05-21] MEDS: piperacillin/tazo 3.375gm/50ml 50 ML IV SCH ×3 (09:15→15:55)
[2020-05-21] MEDS: VANCOmycin 1250MG/NS 250ml Bag 250 ML IV SCH ×2 (09:16→21:11)
--- NOTE | 2020-05-21 14:31 | NUR ---
Reassessment: Pt was extubated, advanced to heart healthy diet. Eating well so far and appetite is improving, eating average of 50-75%. Has bilateral femoral surgical wound w/ vacs per EMR; admit with bilateral LE ischemia now s/p R limb aortic graft thrombectomy, R sfa thrombectomy, L fem graft thrombectomy, revision L fem post tib bypass, L primary clinician thrombectomy, and graft placement w/ left sartorius muscle flap per EMR. Possible AKA vs BKA in future per MD note. Rec: 1. Continue heart healthy diet 2. MVI for wound healing needs once PO 3. routine bowel 4. scaled wt this admit 5. high protein ed once stable post-op this admit as medically indicated Addendum: 05/21/20 at [address] Amended: Links added.
[2020-05-21] MEDS ORDERED: VANCOMYCIN LEVEL IV ONE (20:30)
[2020-05-22] VITALS (29 sets, daily range): BP systolic 90–130; BP diastolic 53–78
[2020-05-22 02:50] LABS: BASOPHILS % (AUTO) 0.3 % (0-1); EOSINOPHILS % (AUTO) 0.2 % (0-6); HEMATOCRIT 24.7 % (35.0-45.0); HEMOGLOBIN 8.6 g/dl (12.0-16.0); LYMPHOCYTES % (AUTO) 10.3 % (21-51); MEAN CORPUSCULAR HEMOGLOBIN 32.6 PG (27.0-31.0); MEAN CORPUSCULAR HGB CONC 34.8 g/dL (33.0-36.5); MEAN CORPUSCULAR VOLUME 93.8 FL (78-98); MEAN PLATELET VOLUME 7.3 FL (7.4-10.4); MONOCYTES # (AUTO) 1.1 X10'3 (0-0.9); MONOCYTES % (AUTO) 11.3 % (2-12); NEUTROPHILS # (AUTO) 7.3 X10'3 (1.8-7.7); NEUTROPHILS % (AUTO) 77.9 % (42-75); PLATELET COUNT 159 X10'3 (140-440); RED BLOOD COUNT 2.63 X10'6 (4.20-5.60); RED CELL DISTRIBUTION WIDTH 15.3 % (11.5-14.5); WHITE BLOOD COUNT 9.3 X10'3 (4.5-11.0)
[2020-05-22 03:02] LABS: PARTIAL THROMBOPLASTIN TIME 42 SECONDS (22-32)
[2020-05-22 03:08] LABS: ALANINE AMINOTRANSFERASE 33 U/L (12-78); ALBUMIN 1.8 G/DL (3.4-5.0); ALBUMIN/GLOBULIN RATIO 0.6 (1.1-1.5); ALKALINE PHOSPHATASE 69 IU/L (46-116); ANION GAP 7 (8-16); ASPARTATE AMINO TRANSFERASE 76 U/L (10-37); BILIRUBIN,TOTAL 0.7 MG/DL (0.1-1.0); BLOOD UREA NITROGEN 6 MG/DL (7-18); BUN/CREATININE RATIO 14.6 (6.6-38.0); CALCIUM 7.6 MG/DL (8.5-10.1); CHLORIDE 103 MMOL/L (99-107); CREATININE 0.41 MG/DL (0.40-0.90); GLUCOSE 95 MG/DL (70-104); MAGNESIUM 1.6 MG/DL (1.5-2.4); POTASSIUM 3.4 MMOL/L (3.5-5.1); SODIUM 135 MMOL/L (135-145); TOTAL CARBON DIOXIDE 25.3 MMOL/L (24-32); TOTAL PROTEIN 4.7 G/DL (6.4-8.2); eGFR > 90 ML/MIN
[2020-05-22] MEDS: normal saline 1000ml 1,000 ML IV SCH ×2 (05:15→15:29)
[2020-05-22] MEDS: rivaroxaban 15mg tablet PO SCH ×2 (07:30→18:21)
[2020-05-22] MEDS: pantoprazole 40mg Tablet.DR PO SCH (07:30)
[2020-05-22] MEDS: lactobacillus rhamnosus 10,000 MMU CELLS/CAPSULE PO SCH ×2 (08:00→19:32)
[2020-05-22] MEDS: clopidogrel 75mg tablet PO SCH (08:00)
[2020-05-22] MEDS: midodrine 5mg tablet OGT SCH ×3 (08:00→16:31)
[2020-05-22] MEDS: clindamycin 600mg/D5W 50ml 50 ML IV SCH ×3 (08:31→23:33)
[2020-05-22] MEDS: piperacillin/tazo 3.375gm/50ml 50 ML IV SCH ×3 (08:31→16:30)
[2020-05-22] MEDS ORDERED: fentaNYL/PF 50MCG/1 ML 2ML syringe ONE ×3 (09:55→11:29)
[2020-05-22] MEDS ORDERED: midazolam 2 mg/2 ml injection ONE (09:55)
[2020-05-22] MEDS ORDERED: ondansetron/PF 4mg/2ml inj IV PRN (11:00)
[2020-05-22] MEDS ORDERED: morphine 4 MG/ML inj SYRINge IV PRN (11:00)
[2020-05-22] MEDS ORDERED: proCHLORperazine 10 MG/2 ml inj IV PRN (11:00)
[2020-05-22] MEDS ORDERED: morphine 2 MG/ML inj. syringe IV PRN (11:00)
[2020-05-22] MEDS ORDERED: ringers solution, lacted 1,000 ML IV SCH (11:00)
[2020-05-22] MEDS ORDERED: meperidine/PF 25mg/ml syringe IV PRN ×3 (11:00)
[2020-05-22] MEDS ORDERED: ceFAZolin 1000mg inj ONE (11:18)
[2020-05-22] MEDS ORDERED: dexamethasone sod phosphate 4mg/ml inj. ONE (11:27)
[2020-05-22] MEDS ORDERED: propofol inj 20 ML IV ONE (11:27)
[2020-05-22] MEDS ORDERED: ondansetron/PF 4mg/2ml inj ONE (11:27)
[2020-05-22] MEDS ORDERED: LIDOcaine 2% (20mg/ml) 5ml vial ONE (11:27)
[2020-05-22] MEDS ORDERED: ePHEDrine 50MG/ML INJ. ONE (11:28)
--- NOTE | 2020-05-22 12:05 | NUR ---
Received from OR via SURGICAL BED, accompanied by Anesthesiologist SACHI and report given by Anesthesiolgist. PATIENT WITH 10L MASK ON WITH 100% SATURATIONS. DENIES PAIN CURRENTLY. RUE PICC LINE PRESENT WITH IVF AT 100 AND IV ABX RUNNING. 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 ONE PROVENA AND ONE DISTAL RESIDUAL LIMP ALL CDI CURRENTLY WITH NO LEAKS FROM WOUND VAC SET. LEFT INNER AND LOWER LEG DRESSINGS DATED 05-20-20 ARE SPOTTED WITH OLD DRAINAGE. LEFT INGUINAL PROVENA DRESSING IS PRESENT AND IS MAINTAINING SUCTION. + DP ON LEFT FOOT - THO DISCOLORED AND BLACKENED AT TOES AND BASE OF FOOT. Addendum: 05/22/20 at 1239 by Colten Campos - LUCIA RN Amended: Links added.
--- NOTE | 2020-05-22 13:25 | NUR ---
Report called to receiving nurse. Transferred via SURGICAL BED WITH 2 BAGS OF Belongings AND GLASSES. Special Issues communicated to receiving nurse JAMIE MYERS.VSS. DRESSING CDI, VAC SITES WITHOUT LEAKS, RN AWARE PATIENT HAS ARRIVED. Addendum: 05/22/20 at 1345 by Colten Stewart RN RN Amended: Links added.
[2020-05-22] MEDS: POTASSIUM BICARB 20meq eff tab 20 MEQ TABLET.EFF NG PRN ×2 (15:26→22:17)
--- NOTE | 2020-05-22 16:22 | NUR ---
I have reviewed and agree with all medications administered and interventions performed by [facility] Student, Kori Nielsen.
--- NOTE | 2020-05-22 18:29 | NUR ---
Problems reprioritized. Patient report given, questions answered & plan of care reviewed with Prudence RN.
--- NOTE | 2020-05-22 18:41 | NUR ---
Called Dr Cruz to let him know that Pt has good doppler pulses on pt's left foot but Pt's toes are all necrotic and there is no capillary refill. Got on report from recovery that Surgeon knew about poor perfusion but it was not on the notes. After calling surgeon, he noted that toes have been necrotic for the last 5 days. NOC nurse is aware.
[2020-05-22] MEDS: acetaminophen 325mg tablet PO PRN (19:38)
--- NOTE | 2020-05-22 19:39 | NUR ---
Patient in room [facility] 347. I have received report from ERA MYERS and had the opportunity to ask questions and assume patient care.
--- NOTE | 2020-05-22 20:56 | NUR ---
CHECKED PATIENT PULSES ON THE LEFT FOOT. DIMINISHED PULSES ON POSTERIOR ASPECT OF THE FOOT. DOPPLER USED AND CHARGED NURSE NOTIFIED. PATIENT WAS SEEING BY DOCTOR EARLIER IN THE DAY WHEN SHE WENT IN FOR RIGHT BKA REVISION. ALL FIVE TOES ARE BLACK AND WILL CONTINUE TO MONITOR FOR ANY CHANGES. Addendum: 05/22/20 at 2101 by Ragini Galdamez RN Amended: Links added.
[2020-05-22] MEDS: HYDROcodone/acetaminophen 10/325mg tab PO PRN (22:17)
--- NOTE | 2020-05-22 23:18 | NUR ---
Patient in room [facility]AY[facility] 347. I have received report from LUCIA Eid and had the opportunity to ask questions and assume patient care.
--- NOTE | 2020-05-22 23:19 | NUR ---
Student documentation: I have reviewed and agree with all interventions, assessments performed and documented by JOSE ALEJANDRO (STUDENT). WILL CORRECT ANY ERRORS.
--- NOTE | 2020-05-22 23:38 | NUR ---
Problems reprioritized. Patient report given, questions answered & plan of care reviewed with CRISTIANA MYERS.
[2020-05-23] MEDS: piperacillin/tazo 3.375gm/50ml 50 ML IV SCH ×3 (00:10→16:04)
[2020-05-23 05:55] LABS: BASOPHILS % (AUTO) 0.2 % (0-1); EOSINOPHILS % (AUTO) 0 % (0-6); HEMATOCRIT 23.1 % (35.0-45.0); LYMPHOCYTES # (AUTO) 0.7 X10'3 (1.1-4.8); LYMPHOCYTES % (AUTO) 6.8 % (21-51); MEAN CORPUSCULAR HEMOGLOBIN 32.8 PG (27.0-31.0); MEAN CORPUSCULAR HGB CONC 34.5 g/dL (33.0-36.5); MEAN CORPUSCULAR VOLUME 94.9 FL (78-98); MEAN PLATELET VOLUME 7.4 FL (7.4-10.4); MONOCYTES # (AUTO) 1.2 X10'3 (0-0.9); MONOCYTES % (AUTO) 12.6 % (2-12); NEUTROPHILS # (AUTO) 7.8 X10'3 (1.8-7.7); NEUTROPHILS % (AUTO) 80.4 % (42-75); PLATELET COUNT 230 X10'3 (140-440); RED BLOOD COUNT 2.43 X10'6 (4.20-5.60); RED CELL DISTRIBUTION WIDTH 15.4 % (11.5-14.5); WHITE BLOOD COUNT 9.7 X10'3 (4.5-11.0)
[2020-05-23 06:05] LABS: PARTIAL THROMBOPLASTIN TIME 42 SECONDS (22-32)
[2020-05-23 06:13] LABS: ALANINE AMINOTRANSFERASE 30 U/L (12-78); ALBUMIN 1.6 G/DL (3.4-5.0); ALBUMIN/GLOBULIN RATIO 0.5 (1.1-1.5); ALKALINE PHOSPHATASE 57 IU/L (46-116); ANION GAP 7 (8-16); ASPARTATE AMINO TRANSFERASE 49 U/L (10-37); BILIRUBIN,TOTAL 0.5 MG/DL (0.1-1.0); BLOOD UREA NITROGEN 18 MG/DL (7-18); BUN/CREATININE RATIO 12.7 (6.6-38.0); CALCIUM 7.3 MG/DL (8.5-10.1); CHLORIDE 104 MMOL/L (99-107); CREATININE 1.42 MG/DL (0.40-0.90); GLUCOSE 117 MG/DL (70-104); MAGNESIUM 1.5 MG/DL (1.5-2.4); PHOSPHORUS 3.1 MG/DL (2.3-4.5); POTASSIUM 3.8 MMOL/L (3.5-5.1); SODIUM 137 MMOL/L (135-145); TOTAL CARBON DIOXIDE 26.2 MMOL/L (24-32); TOTAL PROTEIN 4.6 G/DL (6.4-8.2); eGFR 38 ML/MIN
--- NOTE | 2020-05-23 06:25 | NUR ---
Patient in room [facility] 347. I have received report from LUCIA Kong and had the opportunity to ask questions and assume patient care.
[2020-05-23 06:30] VITALS: BP 89/55
--- NOTE | 2020-05-23 06:38 | NUR ---
Problems reprioritized. Patient report given, questions answered & plan of care reviewed with LUCIA Doherty.
[2020-05-23] MEDS: normal saline 1000ml 1,000 ML IV SCH ×2 (07:55→15:35)
[2020-05-23] MEDS: clindamycin 600mg/D5W 50ml 50 ML IV SCH ×2 (09:10→15:35)
[2020-05-23] MEDS: lactobacillus rhamnosus 10,000 MMU CELLS/CAPSULE PO SCH ×2 (09:10→20:45)
[2020-05-23] MEDS: clopidogrel 75mg tablet PO SCH (09:11)
[2020-05-23] MEDS: rivaroxaban 15mg tablet PO SCH ×2 (09:11→16:45)
[2020-05-23] MEDS: midodrine 5mg tablet OGT SCH ×3 (09:11→15:35)
[2020-05-23] MEDS: pantoprazole 40mg Tablet.DR PO SCH (09:11)
[2020-05-23] MEDS: VANCOMYCIN 750MG IV in NS 250 ML IV SCH (10:06)
[2020-05-23 11:00] VITALS: BP 92/62
[2020-05-23] MEDS ORDERED: sevoflurane 250ml liquid IH ONE (14:22)
--- NOTE | 2020-05-23 14:26 | NUR ---
Reassessment: Pt s/p BKA revision 05/22. Pt seen at bedside provided with written and verbal protein education. Pt verbalized understanding. Pt continues on a heart healthy diet with fluctuating PO intake, documented with mostly 25-50% PO intake. Pt endorses a good appetite and states she is getting full from meals. Pt provided with alternative menu to provide additional food options to optimize PO intake. Pt requests yogurt TID, d/w dietary. Pt denies food allergies, difficulty chewing/swallowing, or constipation/diarrhea. [facility] 05/23. Pt provided with RD contact information. Will continue to follow and monitor need for further nutrition intervention. Rec: 1. Continue heart healthy diet 2. Yogurt TID 3. MVI for wound healing needs with MD approval 4. Bowel care per rx 5. Scaled weights per rx Addendum: 05/23/20 at [address] Amended: Links added. Addendum: 05/26/20 at [address] CORRECTION* Pt s/p revision femoral distal bypass graft 05/22 Addendum: 05/29/20 at [address] Please disregard previous addendum note. Pt did have BKA revision 05/22
[2020-05-23] MEDS: HYDROcodone/acetaminophen 10/325mg tab PO PRN (15:35)
[2020-05-23] MEDS ORDERED: iohexol 350MG/ML 100ml bottle IV ONE (16:50)
--- NOTE | 2020-05-23 18:55 | NUR ---
Problems reprioritized. Patient report given, questions answered & plan of care reviewed with Saumya RN.
--- NOTE | 2020-05-23 19:45 | NUR ---
Dr. Sarmad foss, taking pt to surgery in am pt okay to eat at this time, NPO after MN. aware of low BP of 88/68, no new orders at this time, okay to keep IVF at same rate. Addendum: 05/23/20 at 2049 by Magdalene Stewart RN Amended: Links added.
[2020-05-23 20:00] VITALS: BP 88/60
[2020-05-24] VITALS (14 sets, daily range): BP systolic 80–131; BP diastolic 56–71
[2020-05-24] MEDS: piperacillin/tazo 3.375gm/50ml 50 ML IV SCH ×3 (00:11→16:00)
[2020-05-24] MEDS: clindamycin 600mg/D5W 50ml 50 ML IV SCH ×2 (00:11→09:35)
--- NOTE | 2020-05-24 06:45 | NUR ---
Patient in room 347B. I have received report from LUCIA CHRISTIAN and had the opportunity to ask questions and assume patient care.
[2020-05-24 07:19] LABS: BASOPHILS % (AUTO) 0.5 % (0-1); EOSINOPHILS % (AUTO) 0.6 % (0-6); LYMPHOCYTES # (AUTO) 0.6 X10'3 (1.1-4.8); LYMPHOCYTES % (AUTO) 9.7 % (21-51); MEAN CORPUSCULAR HEMOGLOBIN 32.2 PG (27.0-31.0); MEAN CORPUSCULAR HGB CONC 33.7 g/dL (33.0-36.5); MEAN CORPUSCULAR VOLUME 95.6 FL (78-98); MEAN PLATELET VOLUME 7.4 FL (7.4-10.4); MONOCYTES # (AUTO) 0.9 X10'3 (0-0.9); MONOCYTES % (AUTO) 13.4 % (2-12); NEUTROPHILS # (AUTO) 4.9 X10'3 (1.8-7.7); NEUTROPHILS % (AUTO) 75.8 % (42-75); PLATELET COUNT 281 X10'3 (140-440); RED BLOOD COUNT 2.01 X10'6 (4.20-5.60); RED CELL DISTRIBUTION WIDTH 16.3 % (11.5-14.5); WHITE BLOOD COUNT 6.5 X10'3 (4.5-11.0)
[2020-05-24 07:27] LABS: HEMATOCRIT 19.2 % (35.0-45.0); HEMOGLOBIN 6.5 g/dl (12.0-16.0)
[2020-05-24] MEDS: pantoprazole 40mg Tablet.DR PO SCH (07:30)
[2020-05-24 07:31] LABS: PARTIAL THROMBOPLASTIN TIME 36 SECONDS (22-32)
--- NOTE | 2020-05-24 07:35 | NUR ---
CRITICAL: HGB 6.5 HCT 19.2
[2020-05-24 07:42] LABS: ALANINE AMINOTRANSFERASE 25 U/L (12-78); ALBUMIN 1.3 G/DL (3.4-5.0); ALBUMIN/GLOBULIN RATIO 0.4 (1.1-1.5); ALKALINE PHOSPHATASE 51 IU/L (46-116); ANION GAP 12 (8-16); ASPARTATE AMINO TRANSFERASE 32 U/L (10-37); BILIRUBIN,TOTAL 0.4 MG/DL (0.1-1.0); BLOOD UREA NITROGEN 22 MG/DL (7-18); BUN/CREATININE RATIO 11.2 (6.6-38.0); CALCIUM 6.7 MG/DL (8.5-10.1); CHLORIDE 109 MMOL/L (99-107); CREATININE 1.97 MG/DL (0.40-0.90); GLUCOSE 73 MG/DL (70-104); MAGNESIUM 1.3 MG/DL (1.5-2.4); PHOSPHORUS 3.2 MG/DL (2.3-4.5); POTASSIUM 3.3 MMOL/L (3.5-5.1); SODIUM 141 MMOL/L (135-145); TOTAL CARBON DIOXIDE 20.3 MMOL/L (24-32); TOTAL PROTEIN 4.2 G/DL (6.4-8.2); eGFR 26 ML/MIN
[2020-05-24] MEDS: lactobacillus rhamnosus 10,000 MMU CELLS/CAPSULE PO SCH ×2 (08:00→21:01)
[2020-05-24] MEDS: midodrine 5mg tablet OGT SCH ×3 (09:42→16:00)
[2020-05-24] MEDS: normal saline 1000ml 1,000 ML IV SCH (10:35)
[2020-05-24] MEDS: rivaroxaban 15mg tablet PO SCH ×2 (12:00→21:03)
[2020-05-24] MEDS: clopidogrel 75mg tablet PO SCH (12:00)
[2020-05-24] MEDS: VANCOMYCIN 750MG IV in NS 250 ML IV SCH (12:06)
[2020-05-24] MEDS ORDERED: LIDOcaine 1% (10mg/ml) 2ml vial ONE (13:37)
[2020-05-24] MEDS ORDERED: heparin 10,000 units/1 ML INJ ONE (13:37)
[2020-05-24] MEDS ORDERED: fentaNYL/PF 50MCG/1 ML 2ML syringe ONE ×2 (13:40→17:49)
[2020-05-24] MEDS ORDERED: midazolam 2 mg/2 ml injection ONE (13:40)
[2020-05-24] MEDS ORDERED: rocuronium 10mg/ml inj IV ONE (13:44)
[2020-05-24] MEDS ORDERED: propofol inj 20 ML IV ONE (13:44)
[2020-05-24] MEDS ORDERED: LIDOcaine 2% (20mg/ml) 5ml vial ONE (13:44)
--- NOTE | 2020-05-24 14:15 | NUR ---
Problems reprioritized. Patient report given, questions answered & plan of care reviewed with NURSE IN RECOVERY.
[2020-05-24] MEDS ORDERED: iohexol 300 MG/1 ML 50ml polymer ONE (15:25)
[2020-05-24] MEDS ORDERED: ePHEDrine 50MG/ML INJ. ONE ×2 (15:40→17:35)
[2020-05-24] MEDS ORDERED: ondansetron/PF 4mg/2ml inj ONE (15:40)
[2020-05-24] MEDS ORDERED: dexamethasone sod phosphate 4mg/ml inj. ONE (15:40)
[2020-05-24] MEDS ORDERED: glycopyrrolate 0.2mg/ml inj ONE (15:41)
[2020-05-24] MEDS ORDERED: neostigmine methylsulfate 1 MG/ML 10ml vial ONE (15:41)
[2020-05-24] MEDS ORDERED: phenylephrine 10mg/ml inj. ONE (17:35)
[2020-05-24 17:58] LABS: ISTAT CREATININE 2.2 mg/dL (0.6-1.1); ISTAT HGB 10.9 g/dl (12.0-16.0); ISTAT IONIZED CALCIUM 0.98 mmol/L (1.03-1.32); POC BUN/CREATININE RATIO 10.5 (6.6-38.0)
[2020-05-24] MEDS ORDERED: HYDROmorphone/PF 0.2 MG/ML SYRINGE IV PRN ×2 (18:05)
[2020-05-24] MEDS ORDERED: fentaNYL/PF 50MCG/1 ML 2ML syringe IV PRN ×2 (18:05)
[2020-05-24] MEDS ORDERED: ondansetron/PF 4mg/2ml inj IV PRN (18:05)
[2020-05-24] MEDS ORDERED: ringers solution, lacted 1,000 ML IV SCH (18:05)
--- NOTE | 2020-05-24 18:23 | NUR ---
ATTEMPTED TO GIVE REPORT TO ICU, STATED WOULD GET REPORT FROM OR
--- NOTE | 2020-05-24 18:45 | NUR ---
PT transferred to ICU Via [place] bed. Bed side report given By Dr Taveras. Pt is Alert and orient x 4 getting O2 via a simple mask, Switched to nasal cannula. DP and PT detected via doppler on Left Lower extremity. DR briceno Was called and he said it was ok to resume the Plavix and Xarelto.
[2020-05-24 19:37] LABS: BASOPHILS # (AUTO) 0.1 X10'3 (0-0.2); BASOPHILS % (AUTO) 1.5 % (0-1); EOSINOPHILS % (AUTO) 0.5 % (0-6); HEMATOCRIT 32.4 % (35.0-45.0); HEMOGLOBIN 11.2 g/dl (12.0-16.0); LYMPHOCYTES # (AUTO) 0.3 X10'3 (1.1-4.8); LYMPHOCYTES % (AUTO) 4.6 % (21-51); MEAN CORPUSCULAR HEMOGLOBIN 31.8 PG (27.0-31.0); MEAN CORPUSCULAR HGB CONC 34.4 g/dL (33.0-36.5); MEAN CORPUSCULAR VOLUME 92.3 FL (78-98); MEAN PLATELET VOLUME 7.3 FL (7.4-10.4); MONOCYTES # (AUTO) 0.3 X10'3 (0-0.9); MONOCYTES % (AUTO) 3.8 % (2-12); NEUTROPHILS # (AUTO) 6.7 X10'3 (1.8-7.7); NEUTROPHILS % (AUTO) 89.6 % (42-75); PLATELET COUNT 250 X10'3 (140-440); RED BLOOD COUNT 3.51 X10'6 (4.20-5.60); RED CELL DISTRIBUTION WIDTH 15.4 % (11.5-14.5); WHITE BLOOD COUNT 7.5 X10'3 (4.5-11.0)
[2020-05-24 19:40] LABS: ALANINE AMINOTRANSFERASE 25 U/L (12-78); ALBUMIN 1.4 G/DL (3.4-5.0); ALBUMIN/GLOBULIN RATIO 0.5 (1.1-1.5); ALKALINE PHOSPHATASE 54 IU/L (46-116); ANION GAP 13 (8-16); ASPARTATE AMINO TRANSFERASE 37 U/L (10-37); BLOOD UREA NITROGEN 24 MG/DL (7-18); BUN/CREATININE RATIO 10.8 (6.6-38.0); CALCIUM 6.8 MG/DL (8.5-10.1); CHLORIDE 109 MMOL/L (99-107); CREATININE 2.22 MG/DL (0.40-0.90); GLUCOSE 120 MG/DL (70-104); MAGNESIUM 1.4 MG/DL (1.5-2.4); PHOSPHORUS 4.7 MG/DL (2.3-4.5); POTASSIUM 3.9 MMOL/L (3.5-5.1); SODIUM 140 MMOL/L (135-145); TOTAL CARBON DIOXIDE 17.6 MMOL/L (24-32); TOTAL PROTEIN 4.4 G/DL (6.4-8.2); eGFR 23 ML/MIN
[2020-05-24 19:42] LABS: PARTIAL THROMBOPLASTIN TIME 36 SECONDS (22-32)
[2020-05-25] VITALS (29 sets, daily range): BP systolic 82–131; BP diastolic 41–76
[2020-05-25] MEDS: HYDROcodone/acetaminophen 10/325mg tab PO PRN ×2 (01:27→08:15)
[2020-05-25 03:04] LABS: BASOPHILS % (AUTO) 0.2 % (0-1); EOSINOPHILS % (AUTO) 0 % (0-6); HEMATOCRIT 28.2 % (35.0-45.0); HEMOGLOBIN 9.6 g/dl (12.0-16.0); LYMPHOCYTES # (AUTO) 0.5 X10'3 (1.1-4.8); LYMPHOCYTES % (AUTO) 5.5 % (21-51); MEAN CORPUSCULAR HEMOGLOBIN 31.6 PG (27.0-31.0); MEAN CORPUSCULAR VOLUME 92.8 FL (78-98); MEAN PLATELET VOLUME 7.5 FL (7.4-10.4); MONOCYTES # (AUTO) 0.8 X10'3 (0-0.9); MONOCYTES % (AUTO) 8.6 % (2-12); NEUTROPHILS # (AUTO) 7.8 X10'3 (1.8-7.7); NEUTROPHILS % (AUTO) 85.7 % (42-75); PLATELET COUNT 266 X10'3 (140-440); RED BLOOD COUNT 3.03 X10'6 (4.20-5.60); RED CELL DISTRIBUTION WIDTH 15.7 % (11.5-14.5); WHITE BLOOD COUNT 9.1 X10'3 (4.5-11.0)
[2020-05-25 03:11] LABS: PARTIAL THROMBOPLASTIN TIME 36 SECONDS (22-32)
[2020-05-25 03:16] LABS: % IRON SATURATION 26 % (11-46); IRON 23 UG/DL (49-151); TOTAL IRON BINDING CAPACITY 89 UG/DL (259-388)
[2020-05-25 03:25] LABS: ALANINE AMINOTRANSFERASE 13 U/L (12-78); ALBUMIN 1.4 G/DL (3.4-5.0); ALBUMIN/GLOBULIN RATIO 0.5 (1.1-1.5); ALKALINE PHOSPHATASE 47 IU/L (46-116); ANION GAP 12 (8-16); ASPARTATE AMINO TRANSFERASE 32 U/L (10-37); BILIRUBIN,TOTAL 0.7 MG/DL (0.1-1.0); BLOOD UREA NITROGEN 26 MG/DL (7-18); BUN/CREATININE RATIO 11.4 (6.6-38.0); CALCIUM 7.4 MG/DL (8.5-10.1); CHLORIDE 109 MMOL/L (99-107); CREATININE 2.28 MG/DL (0.40-0.90); FERRITIN 204 NG/ML (8-252); GLUCOSE 132 MG/DL (70-104); MAGNESIUM 1.5 MG/DL (1.5-2.4); PHOSPHORUS 5.1 MG/DL (2.3-4.5); POTASSIUM 4.2 MMOL/L (3.5-5.1); SODIUM 140 MMOL/L (135-145); TOTAL CARBON DIOXIDE 19.3 MMOL/L (24-32); TOTAL PROTEIN 4.3 G/DL (6.4-8.2); eGFR 22 ML/MIN
[2020-05-25] MEDS: normal saline 1000ml 1,000 ML IV SCH ×2 (06:02→13:15)
[2020-05-25 06:04] LABS: HEMATOCRIT 25.6 % (35.0-45.0); HEMOGLOBIN 8.9 g/dl (12.0-16.0); MEAN CORPUSCULAR HEMOGLOBIN 32.1 PG (27.0-31.0); MEAN CORPUSCULAR HGB CONC 34.7 g/dL (33.0-36.5); MEAN CORPUSCULAR VOLUME 92.5 FL (78-98); MEAN PLATELET VOLUME 7.7 FL (7.4-10.4); PLATELET COUNT 257 X10'3 (140-440); RED BLOOD COUNT 2.77 X10'6 (4.20-5.60); RED CELL DISTRIBUTION WIDTH 16.2 % (11.5-14.5); WHITE BLOOD COUNT 9.7 X10'3 (4.5-11.0)
--- NOTE | 2020-05-25 06:30 | NUR ---
Patient in room ICU 2044. I have received report from Leon MYERS and had the opportunity to ask questions and assume patient care.
--- NOTE | 2020-05-25 06:35 | NUR ---
Patient in room ICU 2044. I have received report from Leon and had the opportunity to ask questions and assume patient care.
[2020-05-25] MEDS: lactobacillus rhamnosus 10,000 MMU CELLS/CAPSULE PO SCH ×2 (07:19→19:42)
[2020-05-25] MEDS: clopidogrel 75mg tablet PO SCH (07:19)
[2020-05-25] MEDS: piperacillin/tazo 3.375gm/50ml 50 ML IV SCH ×3 (07:19→15:05)
[2020-05-25] MEDS: rivaroxaban 15mg tablet PO SCH ×2 (07:19→16:31)
[2020-05-25] MEDS: midodrine 5mg tablet OGT SCH ×3 (07:19→16:31)
[2020-05-25] MEDS: pantoprazole 40mg Tablet.DR PO SCH (07:19)
[2020-05-25 09:27] LABS: HEMOGLOBIN 7.9 g/dl (12.0-16.0); MEAN CORPUSCULAR HEMOGLOBIN 31.6 PG (27.0-31.0); MEAN CORPUSCULAR HGB CONC 34.4 g/dL (33.0-36.5); MEAN CORPUSCULAR VOLUME 91.7 FL (78-98); MEAN PLATELET VOLUME 7.3 FL (7.4-10.4); PLATELET COUNT 249 X10'3 (140-440); RED BLOOD COUNT 2.51 X10'6 (4.20-5.60); RED CELL DISTRIBUTION WIDTH 15.7 % (11.5-14.5); WHITE BLOOD COUNT 10.7 X10'3 (4.5-11.0)
--- NOTE | 2020-05-25 09:41 | NUR ---
Dr. Rader in to see patient, informed MD that pt's BP running low and H&H decreased to 7.9/23. ordered 1 unit PRBCs.
[2020-05-25] MEDS: VANCOMYCIN 750MG IV in NS 250 ML IV SCH (10:08)
--- NOTE | 2020-05-25 13:00 | NUR ---
Patient turned and repositioned. Extremities floated with pillows.
--- NOTE | 2020-05-25 14:57 | NUR ---
0900- Dr Rader communicated with nursing to ask Dr Bañuelos when he rounds if he would like to add heparin 1445- Awaiting surgeon rounds. 1500- Reviewed Natividad RN charting. Also charted an individual assessment.
--- NOTE | 2020-05-25 16:50 | NUR ---
1600- Sarmad rounded, pulses checked with doppler, ok to remove art line, ok for dressing changes PRN to right stump, ortho consult to eval foot. Asked him about heparin per Bartlows request, he says no need. Dr Bañuelos will be unavailable for 1 week. other surgeon to follow.
--- NOTE | 2020-05-25 18:20 | NUR ---
Problems reprioritized. Patient report given, questions answered & plan of care reviewed with Alie.
[2020-05-26] VITALS (20 sets, daily range): BP systolic 95–132; BP diastolic 53–71
[2020-05-26] MEDS: piperacillin/tazo 3.375gm/50ml 50 ML IV SCH ×3 (00:02→16:59)
[2020-05-26] MEDS: normal saline 1000ml 1,000 ML IV SCH (02:36)
[2020-05-26 02:49] LABS: BASOPHILS % (AUTO) 0.4 % (0-1); EOSINOPHILS # (AUTO) 0.1 X10'3 (0-0.9); EOSINOPHILS % (AUTO) 1.1 % (0-6); HEMATOCRIT 25.1 % (35.0-45.0); HEMOGLOBIN 8.5 g/dl (12.0-16.0); LYMPHOCYTES # (AUTO) 0.9 X10'3 (1.1-4.8); LYMPHOCYTES % (AUTO) 8.9 % (21-51); MEAN CORPUSCULAR HEMOGLOBIN 31.8 PG (27.0-31.0); MEAN CORPUSCULAR HGB CONC 33.8 g/dL (33.0-36.5); MEAN CORPUSCULAR VOLUME 94.1 FL (78-98); MEAN PLATELET VOLUME 7.5 FL (7.4-10.4); MONOCYTES # (AUTO) 0.8 X10'3 (0-0.9); MONOCYTES % (AUTO) 7.3 % (2-12); NEUTROPHILS # (AUTO) 8.5 X10'3 (1.8-7.7); NEUTROPHILS % (AUTO) 82.3 % (42-75); PLATELET COUNT 248 X10'3 (140-440); RED BLOOD COUNT 2.67 X10'6 (4.20-5.60); RED CELL DISTRIBUTION WIDTH 15.4 % (11.5-14.5); WHITE BLOOD COUNT 10.3 X10'3 (4.5-11.0)
[2020-05-26 03:38] LABS: ALANINE AMINOTRANSFERASE 21 U/L (12-78); ALBUMIN 1.4 G/DL (3.4-5.0); ALBUMIN/GLOBULIN RATIO 0.5 (1.1-1.5); ALKALINE PHOSPHATASE 51 IU/L (46-116); ANION GAP 11 (8-16); ASPARTATE AMINO TRANSFERASE 29 U/L (10-37); BILIRUBIN,TOTAL 0.6 MG/DL (0.1-1.0); BLOOD UREA NITROGEN 30 MG/DL (7-18); BUN/CREATININE RATIO 12.4 (6.6-38.0); CALCIUM 7.3 MG/DL (8.5-10.1); CHLORIDE 108 MMOL/L (99-107); CREATININE 2.41 MG/DL (0.40-0.90); GLUCOSE 92 MG/DL (70-104); MAGNESIUM 1.6 MG/DL (1.5-2.4); PHOSPHORUS 3.9 MG/DL (2.3-4.5); POTASSIUM 3.8 MMOL/L (3.5-5.1); SODIUM 139 MMOL/L (135-145); TOTAL CARBON DIOXIDE 19.6 MMOL/L (24-32); TOTAL PROTEIN 4.4 G/DL (6.4-8.2); eGFR 21 ML/MIN
[2020-05-26 04:02] LABS: PARTIAL THROMBOPLASTIN TIME 43 SECONDS (22-32)
[2020-05-26] MEDS: pantoprazole 40mg Tablet.DR PO SCH (07:15)
[2020-05-26] MEDS: clopidogrel 75mg tablet PO SCH (07:15)
[2020-05-26] MEDS: midodrine 5mg tablet OGT SCH ×3 (07:15→16:59)
[2020-05-26] MEDS: lactobacillus rhamnosus 10,000 MMU CELLS/CAPSULE PO SCH ×2 (07:15→19:34)
[2020-05-26] MEDS: HYDROcodone/acetaminophen 10/325mg tab PO PRN ×2 (07:19→17:12)
[2020-05-26] MEDS: rivaroxaban 15mg tablet PO SCH ×2 (08:49→16:59)
[2020-05-26] MEDS: VANCOMYCIN 750MG IV in NS 250 ML IV SCH (08:57)
[2020-05-26] MEDS ORDERED: VANCOMYCIN LEVEL IV ONE (09:30)
--- NOTE | 2020-05-26 10:15 | NUR ---
Vanc trough called to pharmacy. Am vanc dose stopped. Dr. Rader aware.
--- NOTE | 2020-05-26 11:19 | NUR ---
Prevena dressing CDI. no leak detected. no concerns form nursing at this time. Informed nursing they will need orders from surgeon to discontinue prevena dressing in 5-7 days of initial placement.
--- NOTE | 2020-05-26 11:34 | NUR ---
F/u 05/26: Pt PO remains poor ~25% avg meals liberalized to regular diet. Pt reports is eating well and good appetite though still not meeting needs even w/ small stature. Noted pt edentulous during RD visit; will send soft to chew foods and chop meats. Pt seen by RD for verbal high protein reinforcement ed given PO hx; pt is agreeable to strawberry-banana moody smoothie BIDBD for wound healing needs post-op. Ensure Enlive to be sent [facility] for additional kcals as well; MD notified. LBM 05/26. Will continue to monitor for additional protein/kcal needs post-op. Rec: 1. Continue regular diet; soft to chew foods/chop meats since edentulous; encourage PO 2. Yogurt TID; strawberry-banana moody smoothie BIDBD; ensure enlive [facility] 3. MVI for wound healing needs with MD approval 4. Bowel care per rx 5. weekly wts Addendum: 05/26/20 at [address] Amended: Links added.
--- NOTE | 2020-05-26 18:30 | NUR ---
Patient in room CICU 2011. I have received report from LUCIA Bates and had the opportunity to ask questions and assume patient care.
--- NOTE | 2020-05-26 19:00 | NUR ---
Patient report given, questions answered & plan of care reviewed with PCU nurse LUCIA Loya. awaiting staff availability to transfer patient. Patient is alert and oriented x4. She is in sinus rhythm in the 80's. on room air sating 93%. pupils perrl. s1 and s2 heard on auscultation, lung sounds are clear, bowel sounds present. Patient is wanting to wait to eat after she is transferred will bring meal tray. wounds assessed and dressings are dry and intact with minimal drainage, wound vac dressings with good seal, drainage marked by previous shift. salazar in place, draining yellow urine. Pulses to right DP and PT are present with doppler. toes are blackened, calf is red and tight. patient states that her pain is well controlled with norco 10. zosyn running through right upper arm picc line. All belongings are bagged up and will be transferred with patient.
--- NOTE | 2020-05-26 19:19 | NUR ---
RECEIVED REPORT FROM LUCIA GUTIERREZ CICU. PRIORITIES IN CARE DISCUSSED AND AWAITING TRANSPORT.
--- NOTE | 2020-05-26 20:00 | NUR ---
Patient transferred to PCU with all belongings. LUCIA Loya at bedside and received patient.
[2020-05-27] MEDS: piperacillin/tazo 3.375gm/50ml 50 ML IV SCH ×2 (00:40→10:03)
[2020-05-27 02:00] VITALS: BP 135/70
[2020-05-27] MEDS: HYDROcodone/acetaminophen 10/325mg tab PO PRN ×2 (05:40→12:21)
[2020-05-27 06:00] VITALS: BP 133/69
[2020-05-27 06:15] LABS: BASOPHILS % (AUTO) 0.5 % (0-1); EOSINOPHILS # (AUTO) 0.1 X10'3 (0-0.9); EOSINOPHILS % (AUTO) 1.3 % (0-6); HEMOGLOBIN 8.1 g/dl (12.0-16.0); LYMPHOCYTES # (AUTO) 0.9 X10'3 (1.1-4.8); MEAN CORPUSCULAR HEMOGLOBIN 31.9 PG (27.0-31.0); MEAN CORPUSCULAR HGB CONC 33.7 g/dL (33.0-36.5); MEAN CORPUSCULAR VOLUME 94.6 FL (78-98); MEAN PLATELET VOLUME 7.9 FL (7.4-10.4); MONOCYTES # (AUTO) 0.7 X10'3 (0-0.9); MONOCYTES % (AUTO) 6.1 % (2-12); NEUTROPHILS % (AUTO) 84.1 % (42-75); PLATELET COUNT 205 X10'3 (140-440); RED BLOOD COUNT 2.54 X10'6 (4.20-5.60); RED CELL DISTRIBUTION WIDTH 15.4 % (11.5-14.5); WHITE BLOOD COUNT 10.7 X10'3 (4.5-11.0)
[2020-05-27 06:23] LABS: PARTIAL THROMBOPLASTIN TIME 38 SECONDS (22-32)
[2020-05-27 06:49] LABS: ALANINE AMINOTRANSFERASE 24 U/L (12-78); ALBUMIN 1.5 G/DL (3.4-5.0); ALBUMIN/GLOBULIN RATIO 0.4 (1.1-1.5); ALKALINE PHOSPHATASE 60 IU/L (46-116); ANION GAP 13 (8-16); ASPARTATE AMINO TRANSFERASE 29 U/L (10-37); BILIRUBIN,TOTAL 0.5 MG/DL (0.1-1.0); BLOOD UREA NITROGEN 31 MG/DL (7-18); BUN/CREATININE RATIO 12.2 (6.6-38.0); CALCIUM 7.8 MG/DL (8.5-10.1); CHLORIDE 106 MMOL/L (99-107); CREATININE 2.55 MG/DL (0.40-0.90); GLUCOSE 90 MG/DL (70-104); MAGNESIUM 1.6 MG/DL (1.5-2.4); PHOSPHORUS 3.5 MG/DL (2.3-4.5); POTASSIUM 3.6 MMOL/L (3.5-5.1); SODIUM 139 MMOL/L (135-145); TOTAL CARBON DIOXIDE 19.7 MMOL/L (24-32); TOTAL PROTEIN 4.9 G/DL (6.4-8.2); VANCOMYCIN,RANDOM 36.2 UG/ML; eGFR 19 ML/MIN
--- NOTE | 2020-05-27 06:58 | NUR ---
Problems reprioritized. Patient report given, questions answered & plan of care reviewed with LUCIA Jack.
--- NOTE | 2020-05-27 06:59 | NUR ---
Patient in room PCU 3027. I have received report from Shalini MYERS and had the opportunity to ask questions and assume patient care.
[2020-05-27] MEDS: lactobacillus rhamnosus 10,000 MMU CELLS/CAPSULE PO SCH ×2 (09:19→19:47)
[2020-05-27] MEDS: rivaroxaban 15mg tablet PO SCH ×2 (09:19→17:11)
[2020-05-27] MEDS: clopidogrel 75mg tablet PO SCH ×2 (09:20→17:11)
[2020-05-27] MEDS: midodrine 5mg tablet OGT SCH ×3 (09:20→16:55)
[2020-05-27] MEDS: pantoprazole 40mg Tablet.DR PO SCH (09:20)
[2020-05-27 11:00] VITALS: BP 132/73
[2020-05-27 15:00] VITALS: BP 126/74
[2020-05-27] MEDS: HYDROcodone/acetaminophen 5mg/325mg tablet PO PRN (17:05)
--- NOTE | 2020-05-27 17:11 | NUR ---
Spoke to Dr Woods, per his instructions HOLD Xeralto & plavix AM dose. pt will be going to surgery for partial left foot amputation.
--- NOTE | 2020-05-27 18:27 | NUR ---
Problems reprioritized. Patient report given, questions answered & plan of care reviewed with Sukhjinder MYERS.
[2020-05-27 22:00] VITALS: BP 127/69
[2020-05-28] VITALS (19 sets, daily range): BP systolic 112–146; BP diastolic 59–85
--- NOTE | 2020-05-28 06:16 | NUR ---
Problems reprioritized. Patient report given, questions answered & plan of care reviewed with Shalini MYERS.
--- NOTE | 2020-05-28 06:42 | NUR ---
Patient in room PCU 3027. I have received report from LUCIA Nielsen and had the opportunity to ask questions and assume patient care.
[2020-05-28] MEDS ORDERED: ondansetron/PF 4mg/2ml inj IV PRN (07:20)
[2020-05-28] MEDS ORDERED: ringers solution, lacted 1,000 ML IV SCH (07:20)
[2020-05-28] MEDS ORDERED: acetaminophen 1,000mg/100ml IV 100 ML IV PRN (07:20)
[2020-05-28] MEDS ORDERED: proCHLORperazine 10 MG/2 ml inj IV PRN (07:20)
[2020-05-28] MEDS ORDERED: hydrALAZINE 20mg/ml inj. IV PRN (07:20)
[2020-05-28] MEDS ORDERED: labetalol 20mg/4ml (5mg/ml) syringe IV PRN (07:20)
[2020-05-28] MEDS ORDERED: fentaNYL/PF 50MCG/1 ML 2ML syringe IV PRN ×2 (07:20)
[2020-05-28] MEDS ORDERED: meperidine/PF 25mg/ml syringe IV PRN (07:20)
[2020-05-28] MEDS: rivaroxaban 15mg tablet PO SCH (07:30)
[2020-05-28] MEDS ORDERED: sevoflurane 250ml liquid IH ONE (07:48)
[2020-05-28] MEDS ORDERED: ondansetron/PF 4mg/2ml inj ONE (07:48)
[2020-05-28] MEDS ORDERED: dexamethasone sod phosphate 10mg/ml inj ONE (07:48)
[2020-05-28] MEDS: midodrine 5mg tablet OGT SCH ×3 (08:00→16:00)
[2020-05-28] MEDS ORDERED: midazolam 2 mg/2 ml injection ONE (08:07)
[2020-05-28] MEDS ORDERED: propofol inj 20 ML IV ONE (08:07)
[2020-05-28] MEDS ORDERED: LIDOcaine 2% (20mg/ml) 5ml vial ONE (08:07)
[2020-05-28] MEDS ORDERED: fentaNYL/PF 50MCG/1 ML 2ML syringe ONE (08:09)
[2020-05-28] MEDS ORDERED: ROPIVAcaine 0.5% (5mg/ml) 30ml vial ONE (08:15)
--- NOTE | 2020-05-28 09:00 | NUR ---
Received from OR via BED, accompanied by Anesthesiologist DR LOW-- and report given by Anesthesiolgist. PATIENT A&OX4, DENIES PAIN, V/S WNL, NEUROVASCULAR CHECKS INTACT, PICC RUE, , DRESSING ISLAND TO LEFT THIGH CDI, STAPLE OPEN TO AIR BILATER LOWER EXTREMITIES WITH NO DRAINAGE OBSERVED, LEFT GROIN AND LEFT FOOT WV AT 125 CONTINOUS SUCTION WITH NO LEAKS DETECTED AND 200CC IN DRAIN SO FAR CDI, AND RIGHT GROIN AND RIGHT STUMP WV AT 125 CONTINOUS SUCTION CDI WITH NO LEAKS DETECTED. THERE IS SOME BLOOD POOLING UNDER TEGADERM DRESSING TO RIGHT STUMP OBSERVED AND DR ROSAS AND CURT SONG ASSESSED THIS AND ORDERS TO BE PLACED FOR WOUNDCARE TO CHANGE DRESSING. F/C DRAINING CLEAR YELLOW URINE
--- NOTE | 2020-05-28 09:24 | NUR ---
SUPERVISOR BODY ASSEMBLY NOTIFIED FOR NEED TO CHANGE WV DRESSING TO RIGHT SIDE NOW
--- NOTE | 2020-05-28 09:50 | NUR ---
PATIENT A&OX4, DENIES PAIN, V/S WNL, NEUROVASCULAR CHECKS INTACT, PICC RUE, , DRESSING ISLAND TO LEFT THIGH CDI, STAPLE OPEN TO AIR BILATER LOWER EXTREMITIES WITH NO DRAINAGE OBSERVED, LEFT GROIN AND LEFT FOOT WV AT 125 CONTINOUS SUCTION WITH NO LEAKS DETECTED AND 200CC IN DRAIN SO FAR CDI, AND RIGHT GROIN AND RIGHT STUMP WV AT 125 CONTINOUS SUCTION CDI WITH NO LEAKS DETECTED. WOUNDCARE CONTACTED TO CHANGE DRESSING. F/C DRAINING CLEAR YELLOW URINE. WV PLUGGED IN X2 IN 3027A . PATIENT TAKEN TO 3027A WITH ALL BELONGINGS AND HOOKED UP TO MONITORS IN ROOM AND REPORT GIVEN TO RN WHO HAS TAKEN OVER PATIENT CARE.
--- NOTE | 2020-05-28 10:07 | NUR ---
Received from OR via ABRIL , accompanied by Anesthesiologist FRANK and report given by Anesthesiolgist. PATIENT WITH 20G PIV IN LEFT UE RUNNING LR AT 100. NON VERBAL AT THIS TIME. RIGHT HAND MARY ALICE BANDAGE PRESENT WITH JERGENS BALL PRESENT. + CAP REFILL AND ELELVATED UPON ARRIVAL FROM OR. 10L MASK ON WITH 100% SATURATIONS. 2 GAURDS PRESENT WITH PATIENT.
[2020-05-28] MEDS: lactobacillus rhamnosus 10,000 MMU CELLS/CAPSULE PO SCH ×2 (11:11→20:32)
[2020-05-28] MEDS: pantoprazole 40mg Tablet.DR PO SCH (11:11)
[2020-05-28 12:24] LABS: ALANINE AMINOTRANSFERASE 21 U/L (12-78); ALBUMIN 1.6 G/DL (3.4-5.0); ALBUMIN/GLOBULIN RATIO 0.4 (1.1-1.5); ALKALINE PHOSPHATASE 67 IU/L (46-116); ANION GAP 12 (8-16); ASPARTATE AMINO TRANSFERASE 30 U/L (10-37); BILIRUBIN,TOTAL 0.5 MG/DL (0.1-1.0); BLOOD UREA NITROGEN 31 MG/DL (7-18); BUN/CREATININE RATIO 12.7 (6.6-38.0); CALCIUM 8.1 MG/DL (8.5-10.1); CHLORIDE 108 MMOL/L (99-107); CREATININE 2.45 MG/DL (0.40-0.90); GLUCOSE 103 MG/DL (70-104); POTASSIUM 3.8 MMOL/L (3.5-5.1); SODIUM 140 MMOL/L (135-145); TOTAL CARBON DIOXIDE 20.3 MMOL/L (24-32); TOTAL PROTEIN 5.2 G/DL (6.4-8.2); VANCOMYCIN,RANDOM 27.2 UG/ML; eGFR 20 ML/MIN
--- NOTE | 2020-05-28 14:41 | NUR ---
Problems reprioritized. Patient report given, questions answered & plan of care reviewed with LUCIA Mcallister.
--- NOTE | 2020-05-28 14:44 | NUR ---
Received report from Marichuy RN to take over the care of this patient. Patient wound vac drainage from the left amputated toes was bloody and about 250ml as of this time. I tried to call Dr. Woods at the office I was told by the staff he is in the OR. I called OR spoke to Wil who confirmed to me that Dr. Woods in the OR.
[2020-05-28] MEDS: HYDROcodone/acetaminophen 5mg/325mg tablet PO PRN ×3 (14:53→20:33)
--- NOTE | 2020-05-28 15:50 | NUR ---
Still awaiting at this time for a call from Dr. Woods. I asked OR charge nurse Wil to have Dr. Woods call me when he gets a chance.
--- NOTE | 2020-05-28 17:19 | NUR ---
As of this time, the wound vac drainage level at the canister remains the same level or did not significantly increased. Will continue to monitor. Charge nurse Ginger notified.
--- NOTE | 2020-05-28 18:36 | NUR ---
Problems reprioritized. Patient report given, questions answered & plan of care reviewed with Magnus RN.
--- NOTE | 2020-05-28 19:30 | NUR ---
Patient in room PCU 3027. I have received report from [facility] and had the opportunity to ask questions and assume patient care.
[2020-05-29 02:00] VITALS: BP 112/66
--- NOTE | 2020-05-29 06:22 | NUR ---
Problems reprioritized. Patient report given, questions answered & plan of care reviewed with palomo.
--- NOTE | 2020-05-29 06:28 | NUR ---
Patient in room PCU 3027. I have received report from Magnus MYERS and had the opportunity to ask questions and assume patient care.
--- NOTE | 2020-05-29 06:29 | NUR ---
Patient in room PCU 3027. I have received report from LUCIA Agudelo and had the opportunity to ask questions and assume patient care. Patient awake in bed and in no acute distress.
[2020-05-29 07:00] VITALS: BP 134/76
[2020-05-29] MEDS: midodrine 5mg tablet OGT SCH ×3 (08:12→16:06)
[2020-05-29] MEDS: lactobacillus rhamnosus 10,000 MMU CELLS/CAPSULE PO SCH ×2 (08:12→19:54)
[2020-05-29] MEDS: pantoprazole 40mg Tablet.DR PO SCH (08:13)
[2020-05-29] MEDS: clopidogrel 75mg tablet PO SCH (08:13)
[2020-05-29] MEDS: HYDROcodone/acetaminophen 10/325mg tab PO PRN ×3 (08:18→19:56)
[2020-05-29 08:49] LABS: CREATININE 2.33 MG/DL (0.40-0.90); eGFR 21 ML/MIN
--- NOTE | 2020-05-29 10:07 | NUR ---
Called Dr. Bañuelos's office regarding patient's provena dressing to her bilateral groin since it has been 7 days since they were placed. His office informed me that he is out of town and that Dr. Silva and Dr. Anderson were covering his patients. Called Dr. Silva's office and Dr. Silva gave the order to DC the provena dressing and to place dry dressings over it.
[2020-05-29 11:32] VITALS: BP 124/80
--- NOTE | 2020-05-29 14:53 | NUR ---
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 Patient with slight improvement in PO intake with documented 25-50% PO intake with 100% PO intake at dinner 05/28, though still not meeting estimated nutrient needs. ONS still pending MD approval in EMR. Pt insists she is eating well and with a good appetite despite current PO intake. Recommend Ensure pudding BIDLD for increased kcal and nutrients, d/w dietary. LBM 05/28. Pt has RD contact information and has been encouraged to reach out for food preferences. Will continue to follow closely and make recommendations as appropriate. Rec: 1. Continue regular diet; soft to chew foods/chop meats since edentulous; encourage PO 2. Yogurt TID; strawberry-banana Garrick smoothie BIDBD, Ensure Enlive WL- ONS pending MD approval in EMR 3. Ensure pudding BIDLD 4. MVI for wound healing needs with MD approval 5. Bowel care per rx 6. weekly scaled wts Addendum: 05/29/20 at [address] Amended: Links added.
[2020-05-29 15:51] VITALS: BP 121/74
[2020-05-29] MEDS: rivaroxaban 15mg tablet PO SCH (17:37)
--- NOTE | 2020-05-29 17:59 | NUR ---
[place] Medication Administration: For this medication-pass time frame, all medication were reviewed, dispensed, administered and documented per hospital policy by LUCIA Shelton.
--- NOTE | 2020-05-29 17:59 | NUR ---
[place] documentation: I have reviewed and agree with all interventions, assessments performed and documented by LUCIA Shelton.
[2020-05-29 18:00] VITALS: BP 123/69
--- NOTE | 2020-05-29 18:19 | NUR ---
Problems reprioritized. Patient report given, questions answered & plan of care reviewed with Magnus RN. Patient stable at transfer of care.
--- NOTE | 2020-05-29 18:19 | NUR ---
Problems reprioritized. Patient report given, questions answered & plan of care reviewed with LUCIA Agudelo. Patient stable at transfer of care.
--- NOTE | 2020-05-29 19:18 | NUR ---
Patient in room PCU 3027. I have received report from christiana and had the opportunity to ask questions and assume patient care.
[2020-05-29 21:09] LABS: BASOPHILS # (AUTO) 0.1 X10'3 (0-0.2); BASOPHILS % (AUTO) 0.7 % (0-1); EOSINOPHILS # (AUTO) 0.2 X10'3 (0-0.9); EOSINOPHILS % (AUTO) 1.6 % (0-6); HEMATOCRIT 22.2 % (35.0-45.0); HEMOGLOBIN 7.4 g/dl (12.0-16.0); LYMPHOCYTES # (AUTO) 1.3 X10'3 (1.1-4.8); LYMPHOCYTES % (AUTO) 12.3 % (21-51); MEAN CORPUSCULAR HEMOGLOBIN 31.9 PG (27.0-31.0); MEAN CORPUSCULAR HGB CONC 33.4 g/dL (33.0-36.5); MEAN CORPUSCULAR VOLUME 95.6 FL (78-98); MEAN PLATELET VOLUME 8.4 FL (7.4-10.4); MONOCYTES # (AUTO) 0.8 X10'3 (0-0.9); MONOCYTES % (AUTO) 7.7 % (2-12); NEUTROPHILS # (AUTO) 8.2 X10'3 (1.8-7.7); NEUTROPHILS % (AUTO) 77.7 % (42-75); PLATELET COUNT 171 X10'3 (140-440); RED BLOOD COUNT 2.32 X10'6 (4.20-5.60); RED CELL DISTRIBUTION WIDTH 16.2 % (11.5-14.5); WHITE BLOOD COUNT 10.6 X10'3 (4.5-11.0)
[2020-05-29 21:20] LABS: ALANINE AMINOTRANSFERASE 24 U/L (12-78); ALBUMIN 1.6 G/DL (3.4-5.0); ALBUMIN/GLOBULIN RATIO 0.5 (1.1-1.5); ALKALINE PHOSPHATASE 79 IU/L (46-116); ANION GAP 12 (8-16); ASPARTATE AMINO TRANSFERASE 33 U/L (10-37); BILIRUBIN,TOTAL 0.3 MG/DL (0.1-1.0); BLOOD UREA NITROGEN 30 MG/DL (7-18); CALCIUM 7.9 MG/DL (8.5-10.1); CHLORIDE 109 MMOL/L (99-107); CREATININE 2.49 MG/DL (0.40-0.90); GLUCOSE 106 MG/DL (70-104); POTASSIUM 3.4 MMOL/L (3.5-5.1); SODIUM 143 MMOL/L (135-145); TOTAL CARBON DIOXIDE 22.5 MMOL/L (24-32); eGFR 20 ML/MIN
[2020-05-29 22:00] VITALS: BP 120/67
[2020-05-30] VITALS (12 sets, daily range): BP systolic 109–147; BP diastolic 60–86
[2020-05-30] MEDS: POTASSIUM BICARB 20meq eff tab 20 MEQ TABLET.EFF NG PRN ×2 (01:07→05:09)
[2020-05-30 04:19] LABS: BASOPHILS % (AUTO) 0.4 % (0-1); EOSINOPHILS # (AUTO) 0.2 X10'3 (0-0.9); EOSINOPHILS % (AUTO) 1.7 % (0-6); HEMOGLOBIN 7.2 g/dl (12.0-16.0); LYMPHOCYTES # (AUTO) 1.1 X10'3 (1.1-4.8); LYMPHOCYTES % (AUTO) 10.5 % (21-51); MEAN CORPUSCULAR HEMOGLOBIN 31.8 PG (27.0-31.0); MEAN CORPUSCULAR HGB CONC 33.3 g/dL (33.0-36.5); MEAN CORPUSCULAR VOLUME 95.4 FL (78-98); MEAN PLATELET VOLUME 8.5 FL (7.4-10.4); MONOCYTES # (AUTO) 0.9 X10'3 (0-0.9); MONOCYTES % (AUTO) 8.6 % (2-12); NEUTROPHILS # (AUTO) 8.2 X10'3 (1.8-7.7); NEUTROPHILS % (AUTO) 78.8 % (42-75); PLATELET COUNT 169 X10'3 (140-440); RED BLOOD COUNT 2.28 X10'6 (4.20-5.60); WHITE BLOOD COUNT 10.4 X10'3 (4.5-11.0)
[2020-05-30 04:21] LABS: ALANINE AMINOTRANSFERASE 23 U/L (12-78); ALBUMIN 1.6 G/DL (3.4-5.0); ALBUMIN/GLOBULIN RATIO 0.5 (1.1-1.5); ALKALINE PHOSPHATASE 67 IU/L (46-116); ANION GAP 8 (8-16); ASPARTATE AMINO TRANSFERASE 30 U/L (10-37); BILIRUBIN,TOTAL 0.3 MG/DL (0.1-1.0); BLOOD UREA NITROGEN 30 MG/DL (7-18); BUN/CREATININE RATIO 12.6 (6.6-38.0); CHLORIDE 110 MMOL/L (99-107); CREATININE 2.38 MG/DL (0.40-0.90); GLUCOSE 82 MG/DL (70-104); SODIUM 142 MMOL/L (135-145); TOTAL CARBON DIOXIDE 24.3 MMOL/L (24-32); TOTAL PROTEIN 5.1 G/DL (6.4-8.2); VANCOMYCIN,RANDOM 18.2 UG/ML; eGFR 21 ML/MIN
[2020-05-30 04:22] LABS: HEMATOCRIT 21.8 % (35.0-45.0)
--- NOTE | 2020-05-30 04:31 | NUR ---
Dr. Bermudez notified of hematocrit 21.8
--- NOTE | 2020-05-30 06:18 | NUR ---
Patient in room PCU 3027. I have received report from Magnus MYERS and had the opportunity to ask questions and assume patient care.
[2020-05-30] MEDS: clopidogrel 75mg tablet PO SCH (07:33)
[2020-05-30] MEDS: lactobacillus rhamnosus 10,000 MMU CELLS/CAPSULE PO SCH ×2 (07:33→19:09)
[2020-05-30] MEDS: rivaroxaban 15mg tablet PO SCH ×2 (07:33→17:01)
[2020-05-30] MEDS: pantoprazole 40mg Tablet.DR PO SCH (07:34)
[2020-05-30] MEDS: HYDROcodone/acetaminophen 10/325mg tab PO PRN ×3 (07:34→17:03)
[2020-05-30] MEDS: midodrine 5mg tablet OGT SCH ×3 (07:34→17:01)
--- NOTE | 2020-05-30 09:29 | NUR ---
Paged Dr. alfred PAGER ID: [phone] MESSAGE: Re: Martha Romero [id number]. Pt in pain during wound care. May we have something for break thru pain? Marichuy MYERS [id number]
[2020-05-30] MEDS ORDERED: HYDROcodone/acetaminophen 10/325mg tab PO ONE (09:40)
--- NOTE | 2020-05-30 18:19 | NUR ---
Problems reprioritized. Patient report given, questions answered & plan of care reviewed with Magnus RN.
--- NOTE | 2020-05-30 18:21 | NUR ---
Patient in room PCU 3024. I have received report from estiven MYERS and had the opportunity to ask questions and assume patient care.
[2020-05-30 21:15] LABS: HEMATOCRIT 32.2 % (35.0-45.0); HEMOGLOBIN 10.8 g/dl (12.0-16.0); MEAN CORPUSCULAR HEMOGLOBIN 31.6 PG (27.0-31.0); MEAN CORPUSCULAR HGB CONC 33.7 g/dL (33.0-36.5); MEAN CORPUSCULAR VOLUME 93.7 FL (78-98); MEAN PLATELET VOLUME 8.8 FL (7.4-10.4); PLATELET COUNT 127 X10'3 (140-440); RED BLOOD COUNT 3.43 X10'6 (4.20-5.60); RED CELL DISTRIBUTION WIDTH 15.5 % (11.5-14.5); WHITE BLOOD COUNT 9.9 X10'3 (4.5-11.0)
[2020-05-31 02:00] VITALS: BP 139/81
[2020-05-31] MEDS: HYDROcodone/acetaminophen 10/325mg tab PO PRN ×4 (05:58→20:23)
--- NOTE | 2020-05-31 06:14 | NUR ---
Problems reprioritized. Patient report given, questions answered & plan of care reviewed with estiven.
--- NOTE | 2020-05-31 06:41 | NUR ---
Patient in room PCU 3024. I have received report from Magnus MYERS and had the opportunity to ask questions and assume patient care with Marichuy Packer RN.
--- NOTE | 2020-05-31 06:41 | NUR ---
Patient in room PCU 3024. I have received report from Magnus MYERS and had the opportunity to ask questions and assume patient care.
[2020-05-31 07:00] VITALS: BP 143/87
[2020-05-31] MEDS: lactobacillus rhamnosus 10,000 MMU CELLS/CAPSULE PO SCH ×2 (08:07→20:22)
[2020-05-31] MEDS: pantoprazole 40mg Tablet.DR PO SCH (08:07)
[2020-05-31] MEDS: rivaroxaban 15mg tablet PO SCH ×2 (08:07→16:47)
[2020-05-31] MEDS: clopidogrel 75mg tablet PO SCH (08:08)
[2020-05-31] MEDS: midodrine 5mg tablet OGT SCH (08:08)
[2020-05-31 09:16] LABS: BASOPHILS % (AUTO) 0.4 % (0-1); EOSINOPHILS # (AUTO) 0.1 X10'3 (0-0.9); HEMATOCRIT 33.1 % (35.0-45.0); HEMOGLOBIN 11.2 g/dl (12.0-16.0); LYMPHOCYTES # (AUTO) 0.8 X10'3 (1.1-4.8); LYMPHOCYTES % (AUTO) 7.9 % (21-51); MEAN CORPUSCULAR HEMOGLOBIN 31.2 PG (27.0-31.0); MEAN CORPUSCULAR HGB CONC 33.8 g/dL (33.0-36.5); MEAN CORPUSCULAR VOLUME 92.4 FL (78-98); MEAN PLATELET VOLUME 9.5 FL (7.4-10.4); MONOCYTES # (AUTO) 0.7 X10'3 (0-0.9); MONOCYTES % (AUTO) 6.2 % (2-12); NEUTROPHILS % (AUTO) 84.5 % (42-75); PLATELET COUNT 115 X10'3 (140-440); RED BLOOD COUNT 3.59 X10'6 (4.20-5.60); RED CELL DISTRIBUTION WIDTH 15.6 % (11.5-14.5); WHITE BLOOD COUNT 10.7 X10'3 (4.5-11.0)
[2020-05-31 09:23] LABS: ALBUMIN 1.9 G/DL (3.4-5.0); ANION GAP 11 (8-16); BLOOD UREA NITROGEN 31 MG/DL (7-18); BUN/CREATININE RATIO 12.7 (6.6-38.0); CALCIUM 8.4 MG/DL (8.5-10.1); CHLORIDE 106 MMOL/L (99-107); CREATININE 2.45 MG/DL (0.40-0.90); GLUCOSE 138 MG/DL (70-104); POTASSIUM 3.6 MMOL/L (3.5-5.1); SODIUM 140 MMOL/L (135-145); TOTAL CARBON DIOXIDE 23.4 MMOL/L (24-32); eGFR 20 ML/MIN
[2020-05-31 11:00] VITALS: BP 122/67
[2020-05-31 15:00] VITALS: BP 122/67
[2020-05-31 18:00] VITALS: BP 120/67
--- NOTE | 2020-05-31 18:03 | NUR ---
Problems reprioritized. Patient report given, questions answered & plan of care reviewed with Martínez rn.
--- NOTE | 2020-05-31 18:14 | NUR ---
Patient in room PCU 3024. I have received report from estiven and had the opportunity to ask questions and assume patient care.
[2020-05-31 22:00] VITALS: BP 129/77
[2020-06-01 02:00] VITALS: BP 129/74
[2020-06-01 06:00] VITALS: BP 134/85
--- NOTE | 2020-06-01 06:17 | NUR ---
Problems reprioritized. Patient report given, questions answered & plan of care reviewed with mayte MYERS.
[2020-06-01 06:20] LABS: BASOPHILS % (AUTO) 0.3 % (0-1); EOSINOPHILS # (AUTO) 0.1 X10'3 (0-0.9); EOSINOPHILS % (AUTO) 1.1 % (0-6); HEMATOCRIT 29.5 % (35.0-45.0); HEMOGLOBIN 10.2 g/dl (12.0-16.0); LYMPHOCYTES % (AUTO) 9.4 % (21-51); MEAN CORPUSCULAR HEMOGLOBIN 32.2 PG (27.0-31.0); MEAN CORPUSCULAR HGB CONC 34.7 g/dL (33.0-36.5); MEAN CORPUSCULAR VOLUME 92.6 FL (78-98); MEAN PLATELET VOLUME 9.3 FL (7.4-10.4); MONOCYTES # (AUTO) 0.7 X10'3 (0-0.9); MONOCYTES % (AUTO) 7.4 % (2-12); NEUTROPHILS # (AUTO) 8.3 X10'3 (1.8-7.7); NEUTROPHILS % (AUTO) 81.8 % (42-75); PLATELET COUNT 100 X10'3 (140-440); RED BLOOD COUNT 3.18 X10'6 (4.20-5.60); RED CELL DISTRIBUTION WIDTH 15.6 % (11.5-14.5); WHITE BLOOD COUNT 10.2 X10'3 (4.5-11.0)
--- NOTE | 2020-06-01 06:42 | NUR ---
Patient in room PCU 3024. I have received report from Magnus MYERS and had the opportunity to ask questions and assume patient care.
[2020-06-01 06:46] LABS: ALANINE AMINOTRANSFERASE 16 U/L (12-78); ALBUMIN 1.7 G/DL (3.4-5.0); ALBUMIN/GLOBULIN RATIO 0.5 (1.1-1.5); ALKALINE PHOSPHATASE 73 IU/L (46-116); ANION GAP 10 (8-16); ASPARTATE AMINO TRANSFERASE 24 U/L (10-37); BILIRUBIN,TOTAL 0.4 MG/DL (0.1-1.0); BLOOD UREA NITROGEN 32 MG/DL (7-18); BUN/CREATININE RATIO 13.3 (6.6-38.0); CALCIUM 8.1 MG/DL (8.5-10.1); CHLORIDE 106 MMOL/L (99-107); CREATININE 2.41 MG/DL (0.40-0.90); GLUCOSE 88 MG/DL (70-104); POTASSIUM 3.9 MMOL/L (3.5-5.1); SODIUM 140 MMOL/L (135-145); TOTAL CARBON DIOXIDE 24.3 MMOL/L (24-32); TOTAL PROTEIN 5.3 G/DL (6.4-8.2); eGFR 21 ML/MIN
[2020-06-01] MEDS: lactobacillus rhamnosus 10,000 MMU CELLS/CAPSULE PO SCH ×2 (08:40→19:29)
[2020-06-01] MEDS: clopidogrel 75mg tablet PO SCH (08:41)
[2020-06-01] MEDS: HYDROcodone/acetaminophen 5mg/325mg tablet PO PRN (08:41)
[2020-06-01] MEDS: rivaroxaban 15mg tablet PO SCH ×2 (08:41→17:19)
[2020-06-01] MEDS: pantoprazole 40mg Tablet.DR PO SCH (08:41)
[2020-06-01 11:00] VITALS: BP 127/75
--- NOTE | 2020-06-01 12:54 | NUR ---
F/u 06/01: Pt PO remains poor ~25% avg does fluctuate to 50% at time even though reports great appetite. Taking small stature into consideration still only partially meeting wound healing needs. S/p L TMA 05/28 w/ wound vacs to L groin and R BKA site. TAWNY ONS recs yet to be verified by MD in EMR; TAWNY d/w RN regarding prior ONS recs for wound healing needs if MD agreeable. LBM 05/30. Will continue to monitor for additional protein/kcal needs post-op. Rec: 1. Continue regular diet; soft to chew foods/chop meats since edentulous; encourage PO 2. Yogurt TID; strawberry-banana Garrick smoothie BIDBD, Ensure Enlive WL- ONS pending MD approval in EMR 3. Ensure pudding BIDLD 4. MVI for wound healing needs with MD approval 5. Bowel care per rx 6. weekly scaled wts Addendum: 06/01/20 at [address] Amended: Links added.
[2020-06-01 15:00] VITALS: BP 139/75
[2020-06-01] MEDS: JUVEN Smoothie Arginine/Glut./Ca2+Bmb (Juven 19.3pkt) 240ml cup PO SCH (17:30)
[2020-06-01 18:00] VITALS: BP 138/80
--- NOTE | 2020-06-01 18:07 | NUR ---
Patient in room PCU 3024. I have received report from mayte MYERS and had the opportunity to ask questions and assume patient care.
--- NOTE | 2020-06-01 18:08 | NUR ---
Problems reprioritized. Patient report given, questions answered & plan of care reviewed with Magnus RN. Stable at transfer at of care.
[2020-06-01] MEDS: HYDROcodone/acetaminophen 10/325mg tab PO PRN (19:30)
[2020-06-01 22:00] VITALS: BP 134/81
[2020-06-02 02:00] VITALS: BP 130/79
--- NOTE | 2020-06-02 06:00 | NUR ---
Patient in room [place] [id number]. I have received report from Best MYERS and had the opportunity to ask questions and assume patient care. Addendum: 06/02/20 at 0944 by Shalini Pittman RN Patient in room [place] [id number]. I have received report from Magnus MYERS and had the opportunity to ask questions and assume patient care.
--- NOTE | 2020-06-02 06:22 | NUR ---
Problems reprioritized. Patient report given, questions answered & plan of care reviewed with taylor.
[2020-06-02 07:00] VITALS: BP 135/82
[2020-06-02] MEDS: JUVEN Smoothie Arginine/Glut./Ca2+Bmb (Juven 19.3pkt) 240ml cup PO SCH ×2 (07:30→17:53)
--- NOTE | 2020-06-02 07:30 | NUR ---
DIANE non-admin, was not available. fax sent to have it sent up
[2020-06-02] MEDS: lactobacillus rhamnosus 10,000 MMU CELLS/CAPSULE PO SCH ×2 (08:02→19:27)
[2020-06-02] MEDS: rivaroxaban 15mg tablet PO SCH ×2 (08:02→17:05)
[2020-06-02] MEDS: clopidogrel 75mg tablet PO SCH (08:02)
[2020-06-02] MEDS: pantoprazole 40mg Tablet.DR PO SCH (08:02)
[2020-06-02] MEDS: HYDROcodone/acetaminophen 10/325mg tab PO PRN ×2 (10:19→18:17)
[2020-06-02 11:00] VITALS: BP 121/75
[2020-06-02] MEDS: lactose-reduced food (Ensure Enlive) - 237ml bottle PO SCH (12:54)
--- NOTE | 2020-06-02 13:29 | NUR ---
F/u 06/02: Pt ONS has been ordered by RN and verified; will stop yogurts w/ meals and monitor for ONS intake. Rec: 1. Continue regular diet; soft to chew foods/chop meats since edentulous; encourage PO 2. strawberry-banana Garrick smoothie BIDBD, Ensure Enlive WL 3. Ensure pudding BIDLD Addendum: 06/02/20 at [address] Amended: Links added.
--- NOTE | 2020-06-02 13:58 | NUR ---
Dr. Bañuelos at bedside, mentioned the area of concern per wound care on the left hip. Dr. Bañuelos evaluated patient, new order for PT. Dr. Bañuelos informed me that the hardened area on the left hip of the patient was possibly fluid accumulation, post tib pulse Doppler checked. Will continue to monitor.
[2020-06-02 15:00] VITALS: BP 104/71
[2020-06-02 18:00] VITALS: BP 130/81
--- NOTE | 2020-06-02 18:19 | NUR ---
Patient in room PCU 3024. I have received report from Shalini/Lilian MYERS and had the opportunity to ask questions and assume patient care.
--- NOTE | 2020-06-02 18:20 | NUR ---
Problems reprioritized. Patient report given, questions answered & plan of care reviewed with Magnus RN.
[2020-06-02 22:00] VITALS: BP 114/69
[2020-06-03 02:00] VITALS: BP 120/74
[2020-06-03 04:12] LABS: BASOPHILS % (AUTO) 0.5 % (0-1); EOSINOPHILS # (AUTO) 0.1 X10'3 (0-0.9); EOSINOPHILS % (AUTO) 1.6 % (0-6); HEMATOCRIT 32.1 % (35.0-45.0); HEMOGLOBIN 10.8 g/dl (12.0-16.0); LYMPHOCYTES # (AUTO) 0.8 X10'3 (1.1-4.8); LYMPHOCYTES % (AUTO) 10.2 % (21-51); MEAN CORPUSCULAR HEMOGLOBIN 31.6 PG (27.0-31.0); MEAN CORPUSCULAR HGB CONC 33.7 g/dL (33.0-36.5); MEAN CORPUSCULAR VOLUME 93.9 FL (78-98); MONOCYTES # (AUTO) 0.9 X10'3 (0-0.9); MONOCYTES % (AUTO) 10.7 % (2-12); NEUTROPHILS # (AUTO) 6.1 X10'3 (1.8-7.7); PLATELET COUNT 75 X10'3 (140-440); RED BLOOD COUNT 3.42 X10'6 (4.20-5.60); RED CELL DISTRIBUTION WIDTH 15.3 % (11.5-14.5); WHITE BLOOD COUNT 7.9 X10'3 (4.5-11.0)
[2020-06-03 04:16] LABS: ALANINE AMINOTRANSFERASE 25 U/L (12-78); ALBUMIN 1.8 G/DL (3.4-5.0); ALBUMIN/GLOBULIN RATIO 0.5 (1.1-1.5); ALKALINE PHOSPHATASE 86 IU/L (46-116); ANION GAP 8 (8-16); ASPARTATE AMINO TRANSFERASE 42 U/L (10-37); BILIRUBIN,TOTAL 0.3 MG/DL (0.1-1.0); CALCIUM 8.1 MG/DL (8.5-10.1); CHLORIDE 105 MMOL/L (99-107); CREATININE 2.24 MG/DL (0.40-0.90); GLUCOSE 95 MG/DL (70-104); POTASSIUM 3.6 MMOL/L (3.5-5.1); SODIUM 140 MMOL/L (135-145); TOTAL CARBON DIOXIDE 26.9 MMOL/L (24-32); TOTAL PROTEIN 5.4 G/DL (6.4-8.2); eGFR 22 ML/MIN
[2020-06-03 05:33] LABS: BLOOD UREA NITROGEN 33 MG/DL (7-18); BUN/CREATININE RATIO 14.7 (6.6-38.0)
--- NOTE | 2020-06-03 06:08 | NUR ---
Problems reprioritized. Patient report given, questions answered & plan of care reviewed with Lilian MYERS.
--- NOTE | 2020-06-03 06:34 | NUR ---
Patient in room PCU 3024. I have received report from Magnus MYERS and had the opportunity to ask questions and assume patient care.
[2020-06-03 07:00] VITALS: BP 130/77
[2020-06-03] MEDS: lactose-reduced food (Ensure Enlive) - 237ml bottle PO SCH (08:00)
[2020-06-03] MEDS: lactobacillus rhamnosus 10,000 MMU CELLS/CAPSULE PO SCH ×2 (08:02→20:08)
[2020-06-03] MEDS: clopidogrel 75mg tablet PO SCH (08:02)
[2020-06-03] MEDS: rivaroxaban 15mg tablet PO SCH ×2 (08:02→17:51)
[2020-06-03] MEDS: pantoprazole 40mg Tablet.DR PO SCH (08:03)
[2020-06-03] MEDS: JUVEN Smoothie Arginine/Glut./Ca2+Bmb (Juven 19.3pkt) 240ml cup PO SCH ×2 (08:07→18:04)
--- NOTE | 2020-06-03 08:35 | NUR ---
Wound vac is alarming, wound care team came up to assess and instructed me to not take it down and they will be back to fix the issue.
--- NOTE | 2020-06-03 09:00 | NUR ---
contacted by nursing for a blocked wound vac line. Upon examination, wound vac tubing needed to be changed out. Replaced left groin wound vac tubing. no leak detected. setting at 125mmHg cont. low suction.
[2020-06-03] MEDS: HYDROcodone/acetaminophen 10/325mg tab PO PRN ×2 (09:53→16:18)
[2020-06-03 11:00] VITALS: BP 114/70
[2020-06-03 15:00] VITALS: BP 114/69
--- NOTE | 2020-06-03 18:28 | NUR ---
Problems reprioritized. Patient report given, questions answered & plan of care reviewed with Parveen MYERS.
[2020-06-03 19:00] VITALS: BP 117/69
[2020-06-04 00:17] VITALS: BP 123/77
[2020-06-04 03:00] VITALS: BP 109/68
--- NOTE | 2020-06-04 06:31 | NUR ---
Problems reprioritized. Patient report given, questions answered & plan of care reviewed with YUMIKO. Addendum: 06/04/20 at 0632 by Nicolas Dean RN Amended: Links added.
[2020-06-04 07:07] VITALS: BP 124/74
[2020-06-04] MEDS: rivaroxaban 15mg tablet PO SCH (07:26)
[2020-06-04] MEDS: pantoprazole 40mg Tablet.DR PO SCH (07:26)
[2020-06-04] MEDS: clopidogrel 75mg tablet PO SCH (07:26)
[2020-06-04] MEDS: lactobacillus rhamnosus 10,000 MMU CELLS/CAPSULE PO SCH (07:27)
[2020-06-04] MEDS: acetaminophen 325mg tablet PO PRN (07:27)
[2020-06-04] MEDS: JUVEN Smoothie Arginine/Glut./Ca2+Bmb (Juven 19.3pkt) 240ml cup PO SCH (07:30)
[2020-06-04] MEDS: lactose-reduced food (Ensure Enlive) - 237ml bottle PO SCH (08:00)
[2020-06-04] MEDS: HYDROcodone/acetaminophen 10/325mg tab PO PRN (09:54)
--- NOTE | 2020-06-04 16:44 | NUR ---
PT DISCHARGED TO [facility]. REPORT CALLED TO NORM. PICC TO GRANT INTACT ADN PATENT. THAYER INTACT AND PATENT. WOUND VAC X 2 INTACT AND PATENT. PT DENIES PAIN . ALL VALUABLES ACCOUNTED FOR
== END 2020-06-04 17:28 | DRG 181 ==
LOC: ER 10:54 → ICU 2S 20:13 → SUR 3N 05-22 13:33 → PACU 05-24 14:15 → ICU 2S 05-24 18:48 → CICU 2S 05-25 17:54 → PCU 3S 05-26 19:45 → UNDODISIN 05-27 17:15 → PCU 3S 05-30 12:18
PROVIDERS: ADMIT Internal Medicine Critical Care Medicine; ATTEND Internal Medicine Critical Care Medicine
PROC: 04CL0ZZ Extirpation of Matter from Left Femoral Artery, Open Approach (ICD-10-PCS; 2020-05-17)
PROC: 0KU Muscles, Supplement (ICD-10-PCS; 2020-05-17)
PROC: 04WY0JZ Revision of Synthetic Substitute in Lower Artery, Open Approach (ICD-10-PCS; 2020-05-17)
PROC: 30233N1 Transfusion of Nonautologous Red Blood Cells into Peripheral Vein, Percutaneous Approach (ICD-10-PCS; 2020-05-17)
PROC: B4201ZZ Computerized Tomography (CT Scan) of Abdominal Aorta using Low Osmolar Contrast (ICD-10-PCS; 2020-05-17)
PROC: B42H1ZZ Computerized Tomography (CT Scan) of Bilateral Lower Extremity Arteries using Low Osmolar Contrast (ICD-10-PCS; 2020-05-17)
PROC: 04CK0ZZ Extirpation of Matter from Right Femoral Artery, Open Approach (ICD-10-PCS; principal; 2020-05-17 15:55)
PROC: 0Y6H0Z3 Detachment at Right Lower Leg, Low, Open Approach (ICD-10-PCS; 2020-05-18)
PROC: 02HV33Z Insertion of Infusion Device into Superior Vena Cava, Percutaneous Approach (ICD-10-PCS; 2020-05-19)
PROC: B548ZZA Ultrasonography of Superior Vena Cava, Guidance (ICD-10-PCS; 2020-05-19)
PROC: 0KBS0ZZ Excision of Right Lower Leg Muscle, Open Approach (ICD-10-PCS; 2020-05-22)
PROC: B4201ZZ Computerized Tomography (CT Scan) of Abdominal Aorta using Low Osmolar Contrast (ICD-10-PCS; 2020-05-23)
PROC: B42H1ZZ Computerized Tomography (CT Scan) of Bilateral Lower Extremity Arteries using Low Osmolar Contrast (ICD-10-PCS; 2020-05-23)
PROC: 04CK0ZZ Extirpation of Matter from Right Femoral Artery, Open Approach (ICD-10-PCS; 2020-05-24)
PROC: 04CL0ZZ Extirpation of Matter from Left Femoral Artery, Open Approach (ICD-10-PCS; 2020-05-24)
PROC: 0KU Muscles, Supplement (ICD-10-PCS; 2020-05-24)
PROC: 04WY0JZ Revision of Synthetic Substitute in Lower Artery, Open Approach (ICD-10-PCS; 2020-05-24)
PROC: 0Y6N0Z9 Detachment at Left Foot, Partial 1st Ray, Open Approach (ICD-10-PCS; 2020-05-28)
PROC: 0Y6N0ZB Detachment at Left Foot, Partial 2nd Ray, Open Approach (ICD-10-PCS; 2020-05-28)
PROC: 0Y6N0ZC Detachment at Left Foot, Partial 3rd Ray, Open Approach (ICD-10-PCS; 2020-05-28)
PROC: 0Y6N0ZD Detachment at Left Foot, Partial 4th Ray, Open Approach (ICD-10-PCS; 2020-05-28)
PROC: 0Y6N0ZF Detachment at Left Foot, Partial 5th Ray, Open Approach (ICD-10-PCS; 2020-05-28)
PROC: 3E0T3BZ Introduction of Anesthetic Agent into Peripheral Nerves and Plexi, Percutaneous Approach (ICD-10-PCS; 2020-05-28)
DX: T82.868A Thrombosis due to vascular prosthetic devices, implants and grafts, initial encounter (principal); I96 Gangrene, not elsewhere classified; D63.8 Anemia in other chronic diseases classified elsewhere; E87.6 Hypokalemia; F15.90 Other stimulant use, unspecified, uncomplicated; F17.210 Nicotine dependence, cigarettes, uncomplicated; G62.9 Polyneuropathy, unspecified; I99.8 Other disorder of circulatory system; J44.9 Chronic obstructive pulmonary disease, unspecified; J96.00 Acute respiratory failure, unspecified whether with hypoxia or hypercapnia; Z20.822 Contact with and (suspected) exposure to COVID-19; F12.90 Cannabis use, unspecified, uncomplicated; I87.1 Compression of vein; E83.51 Hypocalcemia; I95.9 Hypotension, unspecified; D69.6 Thrombocytopenia, unspecified; Y83.2 Surgical operation with anastomosis, bypass or graft as the cause of abnormal reaction of the patient, or of later complication, without mention of misadventure at the time of the procedure; N17.9 Acute kidney failure, unspecified; I12.9 Hypertensive chronic kidney disease with stage 1 through stage 4 chronic kidney disease, or unspecified chronic kidney disease; N18.9 Chronic kidney disease, unspecified; Z56.0 Unemployment, unspecified; Z82.0 Family history of epilepsy and other diseases of the nervous system; Z82.49 Family history of ischemic heart disease and other diseases of the circulatory system; Z86.718 Personal history of other venous thrombosis and embolism; Z87.01 Personal history of pneumonia (recurrent); Z88.5 Allergy status to narcotic agent; Z79.899 Other long term (current) drug therapy; Y92.89 Other specified places as the place of occurrence of the external cause; Z79.02 Long term (current) use of antithrombotics/antiplatelets; Z71.6 Tobacco abuse counseling
CPT/HCPCS: 36415; 36430; 36573; 36600; 71045; 73590; 75635; 76000; 80047; 80048; 80053; 80202; 81003; 82330; 82550; 82565; 82728; 82803; 82948; 83540; 83550; 83605; 83735; 84100; 84145; 85007; 85018; 85025; 85027; 85384; 85610; 85730; 86885; 86900; 86901; 86920; 87040; 87070; 87075; 87081; 87426; 87635; 93005; 93925; 93926; 94002; 94003; 94640; 94760; 96365; 97110; 97161; 97530; 99291; A4215; A4618; A6223; A6258; A6446; A6449; A6454; A6550; A7000; C1757; C1758; C1768; C9113; G0378; J0610; J0690; J1100; J1644; J1815; J2001; J2250; J2370; J2405; J2543; J2704; J2710; J2795; J3010; J3370; J3475; J3480; J3490; J7030; J7040; J7050; J7060; J7070; J7120; P9016; P9045; Q9967

== ENCOUNTER 2020-06-12 17:31 | Inpatient (IN) | payer MEDICAID ==
[~2020-06-12] VITALS: Ht 157.5 cm; Wt 46.8 kg
[~2020-06-12 17:31] MED LIST changes: -CLOP75TA34 PO; -HYDR-4383 PO; +NO HOME MEDS; -RIVA20TA PO; +dexamethasone 4mg/ml inj ONE; +rocuronium bromide 100mg/10ml (10mg/ml) injection IV ONE; +sevoflurane 250ml liquid IH ONE
--- NOTE | 2020-06-12 17:44 | NUR ---
Spoke with Dr. Bañuelos regarding patient and he stated that he had been waiting for patient to arrive into ED. Would like CT abd pelvis with IV contrast and route blood work. I discussed this with Dr. Gibbs who agreed and orders will be placed randi Dr. Bolanos verbal order.
[2020-06-12 18:58] LABS: BASOPHILS % (AUTO) 0.6 % (0-1); EOSINOPHILS # (AUTO) 0.2 X10'3 (0-0.9); EOSINOPHILS % (AUTO) 3.5 % (0-6); HEMATOCRIT 31.7 % (35.0-45.0); HEMOGLOBIN 10.5 g/dl (12.0-16.0); LYMPHOCYTES # (AUTO) 1.6 X10'3 (1.1-4.8); MEAN CORPUSCULAR HEMOGLOBIN 31.2 PG (27.0-31.0); MEAN CORPUSCULAR HGB CONC 33.2 g/dL (33.0-36.5); MEAN PLATELET VOLUME 7.6 FL (7.4-10.4); MONOCYTES # (AUTO) 0.5 X10'3 (0-0.9); MONOCYTES % (AUTO) 8.2 % (2-12); NEUTROPHILS # (AUTO) 3.7 X10'3 (1.8-7.7); NEUTROPHILS % (AUTO) 61.7 % (42-75); PLATELET COUNT 352 X10'3 (140-440); RED BLOOD COUNT 3.37 X10'6 (4.20-5.60); RED CELL DISTRIBUTION WIDTH 14.9 % (11.5-14.5)
[2020-06-12 19:11] LABS: ALANINE AMINOTRANSFERASE 23 U/L (12-78); ALBUMIN 3.2 G/DL (3.4-5.0); ALBUMIN/GLOBULIN RATIO 0.7 (1.1-1.5); ALKALINE PHOSPHATASE 142 IU/L (46-116); ANION GAP 11 (8-16); ASPARTATE AMINO TRANSFERASE 35 U/L (10-37); BILIRUBIN,TOTAL 0.3 MG/DL (0.1-1.0); BLOOD UREA NITROGEN 50 MG/DL (7-18); BUN/CREATININE RATIO 37.9 (6.6-38.0); CALCIUM 9.8 MG/DL (8.5-10.1); CHLORIDE 101 MMOL/L (99-107); CREATININE 1.32 MG/DL (0.40-0.90); GLUCOSE 97 MG/DL (70-104); LIPASE 75 U/L (73-393); POTASSIUM 4.5 MMOL/L (3.5-5.1); SODIUM 136 MMOL/L (135-145); TOTAL CARBON DIOXIDE 23.6 MMOL/L (24-32); TOTAL PROTEIN 7.7 G/DL (6.4-8.2); eGFR 41 ML/MIN
[2020-06-12] MEDS ORDERED: iohexol 300mg/ml 100ml inj. ONE (19:17)
[2020-06-12] MEDS ORDERED: mag hydrox/Alum hydrox/simeth 30ml oral suspension PO PRN (20:30)
[2020-06-12] MEDS ORDERED: magnesium Cl slow-release 64mg tablet PO PRN (20:30)
[2020-06-12] MEDS ORDERED: ondansetron/PF 4mg/2ml inj IV PRN (20:30)
[2020-06-12] MEDS ORDERED: magnesium 4gm in 100ml NS 100 ML IV PRN (20:30)
[2020-06-12] MEDS ORDERED: potassium Cl 20 mEq SR tablet PO PRN ×2 (20:30)
[2020-06-12] MEDS ORDERED: magnesium hydroxide 30ml (MOM) UD suspension PO PRN (20:30)
[2020-06-12] MEDS ORDERED: potassium Cl 40MEQ/1/2NS 520ml 520 ML IV PRN ×2 (20:30)
[2020-06-12] MEDS ORDERED: magnesium 2GM in 50ml NS 50 ML IV PRN (20:30)
[2020-06-12] MEDS ORDERED: acetaminophen 325mg tablet PO PRN (20:30)
[2020-06-12] MEDS ORDERED: VANCOMYCIN 750MG IV in NS 250 ML IV SCH (21:00)
--- NOTE | 2020-06-12 22:00 | NUR ---
Received report from Carolyne MYERS in the ER. Pt arrived on the unit via gurney and was able to assist in transfer to her bed. Pt has no belongings except for a joan bear since she was a transfer from [facility]. VSS, on R/A, with no signs of distress. Will continue to monitor.
[2020-06-12 22:15] VITALS: BP 98/57
[2020-06-12] MEDS: morphine 2 MG/ML inj. syringe IV PRN (22:18)
[2020-06-12] MEDS: normal saline 1000ml 1,000 ML IV SCH (22:23)
[2020-06-13] VITALS (21 sets, daily range): BP systolic 102–137; BP diastolic 58–87
--- NOTE | 2020-06-13 05:51 | NUR ---
Student documentation: I have reviewed and agree with all interventions, assessments performed and documented by Chrissy MYERS.
--- NOTE | 2020-06-13 06:00 | NUR ---
Patient in room [facility] 354. I have received report from Chrissy MYERS and had the opportunity to ask questions and assume patient care.
[2020-06-13] MEDS: normal saline 1000ml 1,000 ML IV SCH ×3 (06:30→17:23)
--- NOTE | 2020-06-13 06:32 | NUR ---
Problems reprioritized. Patient report given, questions answered & plan of care reviewed with LUCIA Ballard.
--- NOTE | 2020-06-13 06:34 | NUR ---
Problems reprioritized. Patient report given, questions answered & plan of care reviewed with Nellie MYERS and Emma MYERS.
--- NOTE | 2020-06-13 06:42 | NUR ---
PAGER ID: [phone] MESSAGE: [id number]- [address]- Can we get an order for a chest x-ray to verify PICC line placement due to patient came in with it already in place.
[2020-06-13 06:53] LABS: BASOPHILS % (AUTO) 0.7 % (0-1); EOSINOPHILS # (AUTO) 0.1 X10'3 (0-0.9); EOSINOPHILS % (AUTO) 2.7 % (0-6); HEMATOCRIT 26.8 % (35.0-45.0); HEMOGLOBIN 9.1 g/dl (12.0-16.0); LYMPHOCYTES # (AUTO) 1.1 X10'3 (1.1-4.8); LYMPHOCYTES % (AUTO) 20.7 % (21-51); MEAN CORPUSCULAR HEMOGLOBIN 31.5 PG (27.0-31.0); MEAN CORPUSCULAR VOLUME 92.4 FL (78-98); MEAN PLATELET VOLUME 7.7 FL (7.4-10.4); MONOCYTES # (AUTO) 0.6 X10'3 (0-0.9); MONOCYTES % (AUTO) 12.1 % (2-12); NEUTROPHILS # (AUTO) 3.4 X10'3 (1.8-7.7); NEUTROPHILS % (AUTO) 63.8 % (42-75); PLATELET COUNT 122 X10'3 (140-440); RED CELL DISTRIBUTION WIDTH 14.7 % (11.5-14.5); WHITE BLOOD COUNT 5.4 X10'3 (4.5-11.0)
[2020-06-13 07:04] LABS: ALANINE AMINOTRANSFERASE 25 U/L (12-78); ALBUMIN 2.9 G/DL (3.4-5.0); ALBUMIN/GLOBULIN RATIO 0.7 (1.1-1.5); ALKALINE PHOSPHATASE 121 IU/L (46-116); ANION GAP 9 (8-16); ASPARTATE AMINO TRANSFERASE 28 U/L (10-37); BILIRUBIN,TOTAL 0.3 MG/DL (0.1-1.0); BLOOD UREA NITROGEN 36 MG/DL (7-18); BUN/CREATININE RATIO 31.6 (6.6-38.0); CALCIUM 9.2 MG/DL (8.5-10.1); CHLORIDE 103 MMOL/L (99-107); CREATININE 1.14 MG/DL (0.40-0.90); GLUCOSE 90 MG/DL (70-104); MAGNESIUM 1.6 MG/DL (1.5-2.4); SODIUM 136 MMOL/L (135-145); TOTAL PROTEIN 6.9 G/DL (6.4-8.2); eGFR 49 ML/MIN
[2020-06-13] MEDS ORDERED: VANCOMYCIN 750MG IV in NS 250 ML IV SCH (07:23)
[2020-06-13] MEDS: K and/or MAG REPLACEMENT MC SCH ×2 (08:07→20:44)
--- NOTE | 2020-06-13 08:43 | NUR ---
PAGER ID: [phone] MESSAGE: [id number]- Romero [id number]- Can we get an order for a chest x-ray to verify PICC line placement due to patient came in with it already in place. Addendum: 06/13/20 at 0855 by Emma Jones RN Received orders for chest xray
[2020-06-13] MEDS ORDERED: heparin 10,000 units/1 ML INJ ONE (10:59)
[2020-06-13] MEDS ORDERED: fentaNYL/PF 50MCG/1 ML 2ML syringe IV PRN ×2 (11:05)
[2020-06-13] MEDS ORDERED: ringers solution, lacted 1,000 ML IV SCH (11:05)
[2020-06-13] MEDS ORDERED: labetalol 20mg/4ml (5mg/ml) syringe IV PRN (11:05)
[2020-06-13] MEDS ORDERED: morphine 4 MG/ML inj SYRINge IV PRN (11:05)
[2020-06-13] MEDS ORDERED: hydrALAZINE 20mg/ml inj. IV PRN (11:05)
[2020-06-13] MEDS ORDERED: ondansetron/PF 4mg/2ml inj IV PRN (11:05)
[2020-06-13] MEDS ORDERED: morphine 2 MG/ML inj. syringe IV PRN (11:05)
[2020-06-13] MEDS ORDERED: fentaNYL/PF 50MCG/1 ML 2ML syringe ONE (11:10)
[2020-06-13] MEDS ORDERED: midazolam 1 mg/ML 2ml injection ONE (11:10)
[2020-06-13] MEDS ORDERED: albumin (Human) 5% 250ml 250 ML IV ONE (11:11)
--- NOTE | 2020-06-13 11:15 | NUR ---
Patient left floor at 1045 for surgery. Report was given to Rosanne MYERS in recover.
[2020-06-13] MEDS ORDERED: neostigmine methylsulfate 1 MG/ML 10ml vial ONE (11:51)
[2020-06-13] MEDS ORDERED: glycopyrrolate 0.2mg/ml inj ONE (11:51)
--- NOTE | 2020-06-13 12:06 | NUR ---
ADDENDUM TO BEGINNING NOTE: THERE IS NO WOULD VAC, THERE IS CATHETER ATTACHED TO LEFT GROIN INCISION SITE AND CONTINUOUS SUCTION ON AT 125mmHG. 50ML OF SANGUINOUS DRAINAGE IN CANISTER AT ARRIVAL TO RECOVERY ROOM. Addendum: 06/13/20 at 1240 by Lexus Calzada RN Amended: Links added. Addendum: 06/13/20 at 1449 by Lexus Zheng RN IT IS WOUND VAC WITH FOAM IN INCISION SITE ATTACHED TO LEFT GROIN WITH CONTINUOUS SUCTION AT 125mmHG
--- NOTE | 2020-06-13 12:06 | NUR ---
PATIENT WITH BKA ON RIGHT LEG, AND LEFT TRANSMETATARSAL AMPUTATION SITE WITH GAUZE DRESSING WITH NO DRAINAGE NOTED AT ARRIVAL TO RECOVERY. BILATERAL GROIN PULSE PRESENT WITH PALPATION. Addendum: 06/13/20 at 1254 by Lexus Calzada RN Amended: Links added.
--- NOTE | 2020-06-13 12:06 | NUR ---
ADDENDUM #2: WOUND VAC IN PLACE WITH FOAM IN INCISION SITE WITH TEGADERM OVER THE WOUND IN LEFT GROIN, 125mmHG CONTINOUS SUCTION AT ARRIVAL. Addendum: 06/13/20 at 1324 by Lexus Calzada RN Amended: Links added.
--- NOTE | 2020-06-13 12:06 | NUR ---
Received from OR via BED, accompanied by Anesthesiologist and report given by Anesthesiologist. PATIENT IS SLEEPING SPINE ON BED, AWAKE WITH VOICE, WOUND VAC 125mmHG ON LEFT GROIN WITH TEGADERM ON THE INCISION SITE, NO ERYTHEMA NOTED ON LEFT GROIN, 50mL OF BLOODY DRAINAGE IN WOUND VAC CANISTER, PATIENT DENIES PAIN AT THIS TIME, PICC LINE ON RIGHT ARM, NS RUNNING AT 100ML/HR, PATIENT IS ON O2 MASK ON WITH 10L, NOT IN DISTRESS, V.S. STABLE. WILL MONITOR. Addendum: 06/13/20 at 1234 by Lexus Calzada RN Amended: Links added.
--- NOTE | 2020-06-13 13:26 | NUR ---
Report called to receiving nurse CHON. Transferred TO ROOM [facility] via BED BY ROHAN AND RAOUL SCHMIDT. PATIENT IS AWAKE, V.S. STABLE, NO DISTRESS NOTED, DENIES PAIN, WOUND VAC ON LEFT GROIN WITH CONTINUOUS SUCTION AT 125mmHG DRAINING SANGUIOUS DRAINAGE IN CANISTER, NO ERYTHEMA OR HEMATOMA NOTED AT THE SURGICAL INCISION SITE, NS RUNNING AT 100ML/HR THROUGH PICC LINE ON LEFT UPPER ARM, DRESSING ON LEFT FOOT CDI. O2 3L WITH NASAL CANNULA O2 SAT 100%, BG 97 AT 1302. Addendum: 06/13/20 at 1349 by Lexus Calzada RN Amended: Links added.
--- NOTE | 2020-06-13 15:08 | NUR ---
Called to verify that internet marketing strategist Chie had called and received the orders for the wound vac in patients left groin. Per Lexus Bañuelos stated to keep wound vac at 125 mmHg low continuous
--- NOTE | 2020-06-13 15:19 | NUR ---
Spoke to Amber Ames our Director who was our PICC nurse and verified position of the PICC line Per Xray and she states the PICC is in the perfect position, PICC RN Manuela not here today.
--- NOTE | 2020-06-13 17:06 | NUR ---
Verified with Dr Bañuelos patient to have wound vac set at 125mmHg low continuous Addendum: 06/13/20 at 1707 by Nellie Freeman RN Dr Bañuelos ok with PT eval and Tx
[2020-06-13] MEDS: HYDROcodone/acetaminophen 5mg/325mg tablet PO PRN ×2 (17:22→20:45)
--- NOTE | 2020-06-13 18:44 | NUR ---
Problems reprioritized. Patient report given, questions answered & plan of care reviewed with Joshua MYERS.
[2020-06-13] MEDS: lactobacillus rhamnosus 10,000 MMU CELLS/CAPSULE PO SCH (20:44)
[2020-06-14] VITALS: BP 136/75
[2020-06-14] MEDS: morphine 2 MG/ML inj. syringe IV PRN (02:37)
[2020-06-14 06:30] VITALS: BP 121/70
--- NOTE | 2020-06-14 06:45 | NUR ---
Patient in room [facility] 354. I have received report from LUCIA Lewis and had the opportunity to ask questions and assume patient care.
[2020-06-14] MEDS: normal saline 1000ml 1,000 ML IV SCH ×2 (07:04→17:56)
[2020-06-14 09:08] LABS: ALANINE AMINOTRANSFERASE 25 U/L (12-78); ALBUMIN/GLOBULIN RATIO 0.8 (1.1-1.5); ALKALINE PHOSPHATASE 128 IU/L (46-116); ANION GAP 12 (8-16); ASPARTATE AMINO TRANSFERASE 29 U/L (10-37); BILIRUBIN,TOTAL 0.2 MG/DL (0.1-1.0); BLOOD UREA NITROGEN 33 MG/DL (7-18); BUN/CREATININE RATIO 37.1 (6.6-38.0); CALCIUM 8.9 MG/DL (8.5-10.1); CHLORIDE 107 MMOL/L (99-107); CREATININE 0.89 MG/DL (0.40-0.90); GLUCOSE 126 MG/DL (70-104); MAGNESIUM 1.5 MG/DL (1.5-2.4); POTASSIUM 3.9 MMOL/L (3.5-5.1); SODIUM 139 MMOL/L (135-145); TOTAL CARBON DIOXIDE 19.7 MMOL/L (24-32); TOTAL PROTEIN 6.8 G/DL (6.4-8.2); eGFR 65 ML/MIN
[2020-06-14 09:10] LABS: BASOPHILS % (AUTO) 0.5 % (0-1); EOSINOPHILS % (AUTO) 0.1 % (0-6); HEMOGLOBIN 8.8 g/dl (12.0-16.0); LYMPHOCYTES # (AUTO) 1.5 X10'3 (1.1-4.8); LYMPHOCYTES % (AUTO) 26.8 % (21-51); MEAN CORPUSCULAR HEMOGLOBIN 31.5 PG (27.0-31.0); MEAN CORPUSCULAR VOLUME 92.8 FL (78-98); MEAN PLATELET VOLUME 8.2 FL (7.4-10.4); MONOCYTES # (AUTO) 0.5 X10'3 (0-0.9); MONOCYTES % (AUTO) 8.7 % (2-12); NEUTROPHILS # (AUTO) 3.6 X10'3 (1.8-7.7); NEUTROPHILS % (AUTO) 63.9 % (42-75); PLATELET COUNT 91 X10'3 (140-440); RED CELL DISTRIBUTION WIDTH 14.6 % (11.5-14.5); WHITE BLOOD COUNT 5.6 X10'3 (4.5-11.0)
[2020-06-14] MEDS: K and/or MAG REPLACEMENT MC SCH ×2 (10:25→20:00)
[2020-06-14] MEDS: lactobacillus rhamnosus 10,000 MMU CELLS/CAPSULE PO SCH ×2 (10:29→19:40)
[2020-06-14] MEDS: clopidogrel 75mg tablet PO SCH (10:30)
[2020-06-14 11:00] VITALS: BP 112/60
[2020-06-14] MEDS: HYDROcodone/acetaminophen 5mg/325mg tablet PO PRN ×2 (13:53→17:56)
--- NOTE | 2020-06-14 18:15 | NUR ---
Patient in room [facility] 354. I have received report from Bessy MYERS and had the opportunity to ask questions and assume patient care.
--- NOTE | 2020-06-14 18:35 | NUR ---
Problems reprioritized. Patient report given, questions answered & plan of care reviewed with LUCIA Moran.
[2020-06-14 19:00] VITALS: BP 112/59
[2020-06-14] MEDS: vancomycin/NS 1 GM ADD-VANTAGE 250 ML IV SCH (23:30)
[2020-06-15] VITALS: BP 122/63
--- NOTE | 2020-06-15 06:18 | NUR ---
Problems reprioritized. Patient report given, questions answered & plan of care reviewed with Bessy RN.
--- NOTE | 2020-06-15 06:25 | NUR ---
Patient in room [facility] 354. I have received report from LUCIA Moran and had the opportunity to ask questions and assume patient care.
--- NOTE | 2020-06-15 06:35 | NUR ---
Problems reprioritized. Patient report given, questions answered & plan of care reviewed with LUCIA Mariscal.
[2020-06-15 07:00] VITALS: BP 140/75
[2020-06-15] MEDS: K and/or MAG REPLACEMENT MC SCH ×2 (07:13→20:00)
[2020-06-15] MEDS: lactobacillus rhamnosus 10,000 MMU CELLS/CAPSULE PO SCH ×2 (08:41→21:13)
[2020-06-15] MEDS: clopidogrel 75mg tablet PO SCH (08:41)
[2020-06-15] MEDS: normal saline 1000ml 1,000 ML IV SCH ×2 (08:42→21:13)
[2020-06-15 11:00] VITALS: BP 142/73
[2020-06-15] MEDS: HYDROcodone/acetaminophen 5mg/325mg tablet PO PRN ×3 (11:58→23:34)
--- NOTE | 2020-06-15 18:30 | NUR ---
Patient in room [facility] 354. I have received report from HÉCTOR and had the opportunity to ask questions and assume patient care. ASSUMED CARE OF PT WITH RN STUDENT DAWN Bello
[2020-06-15 19:00] VITALS: BP 118/69
[2020-06-15 20:55] LABS: HEMOGLOBIN A1C 5.4 % (4.5-6.2)
[2020-06-15 23:00] VITALS: BP 126/77
[2020-06-15] MEDS: vancomycin/NS 1 GM ADD-VANTAGE 250 ML IV SCH (23:33)
--- NOTE | 2020-06-16 04:25 | NUR ---
Student Medication Administration: For this medication-pass time frame, all medication were reviewed, dispensed, administered and documented per hospital policy by DAWN Bello
--- NOTE | 2020-06-16 04:25 | NUR ---
Student documentation: I have reviewed and agree with all interventions, assessments performed and documented by DAWN Bello
[2020-06-16 05:04] LABS: EOSINOPHILS # (AUTO) 0.1 X10'3 (0-0.9); EOSINOPHILS % (AUTO) 2.7 % (0-6); HEMOGLOBIN 8.8 g/dl (12.0-16.0); LYMPHOCYTES # (AUTO) 1.6 X10'3 (1.1-4.8); LYMPHOCYTES % (AUTO) 34.8 % (21-51); MEAN CORPUSCULAR HEMOGLOBIN 31.6 PG (27.0-31.0); MEAN CORPUSCULAR HGB CONC 33.7 g/dL (33.0-36.5); MEAN CORPUSCULAR VOLUME 93.6 FL (78-98); MEAN PLATELET VOLUME 8.5 FL (7.4-10.4); MONOCYTES # (AUTO) 0.5 X10'3 (0-0.9); MONOCYTES % (AUTO) 11.3 % (2-12); NEUTROPHILS # (AUTO) 2.4 X10'3 (1.8-7.7); NEUTROPHILS % (AUTO) 50.2 % (42-75); RED BLOOD COUNT 2.78 X10'6 (4.20-5.60); RED CELL DISTRIBUTION WIDTH 14.8 % (11.5-14.5); WHITE BLOOD COUNT 4.7 X10'3 (4.5-11.0)
[2020-06-16 05:14] LABS: ALANINE AMINOTRANSFERASE 35 U/L (12-78); ALBUMIN 2.7 G/DL (3.4-5.0); ALBUMIN/GLOBULIN RATIO 0.7 (1.1-1.5); ALKALINE PHOSPHATASE 125 IU/L (46-116); ANION GAP 9 (8-16); ASPARTATE AMINO TRANSFERASE 38 U/L (10-37); BILIRUBIN,TOTAL 0.3 MG/DL (0.1-1.0); BLOOD UREA NITROGEN 19 MG/DL (7-18); BUN/CREATININE RATIO 26.4 (6.6-38.0); CALCIUM 8.5 MG/DL (8.5-10.1); CHLORIDE 108 MMOL/L (99-107); CREATININE 0.72 MG/DL (0.40-0.90); GLUCOSE 83 MG/DL (70-104); MAGNESIUM 1.3 MG/DL (1.5-2.4); POTASSIUM 3.5 MMOL/L (3.5-5.1); SODIUM 140 MMOL/L (135-145); TOTAL CARBON DIOXIDE 22.6 MMOL/L (24-32); TOTAL PROTEIN 6.4 G/DL (6.4-8.2); eGFR 83 ML/MIN
[2020-06-16 05:56] LABS: PLATELET COUNT 59 X10'3 (140-440)
--- NOTE | 2020-06-16 06:30 | NUR ---
Problems reprioritized. Patient report given, questions answered & plan of care reviewed with
[2020-06-16 07:06] VITALS: BP 137/71
[2020-06-16] MEDS: K and/or MAG REPLACEMENT MC SCH (08:00)
[2020-06-16] MEDS: clopidogrel 75mg tablet PO SCH (09:28)
[2020-06-16] MEDS: HYDROcodone/acetaminophen 5mg/325mg tablet PO PRN ×2 (09:28→15:35)
[2020-06-16] MEDS: lactobacillus rhamnosus 10,000 MMU CELLS/CAPSULE PO SCH (09:28)
[2020-06-16 11:00] VITALS: BP 119/71
--- NOTE | 2020-06-16 12:04 | NUR ---
PAGER ID: [phone] MESSAGE: Iris Romero 354C Critical value = wound culture + Enterobacter cloacae MDRO, also mag 1.3 and no replacement ordered. plts 59 do you want us to continue to give Plavix? Petra [phone]
--- NOTE | 2020-06-16 13:12 | NUR ---
MD notified of low platlets and current plavix administration. States pt. needs plavix but will assess after making rounds. MD made aware of low Mg. level- see new orders. Doctor states he knows about positive cultures and is trying to obtain records from [facility]. Possible transfer to [facility] today.
[2020-06-16] MEDS ORDERED: magnesium oxide 400mg tablet PO ONE (13:20)
--- NOTE | 2020-06-16 15:36 | NUR ---
CALLED DAUGHTER TO NOTIFY OF TRANSFER. CALLED WHITNEY TO GIVE REPORT TO SHENA MYERS.
--- NOTE | 2020-06-16 17:00 | NUR ---
Pt. transferred to [facility] via EMS.
[2020-06-17] MEDS ORDERED: VANCOMYCIN LEVEL IV ONE (23:30)
== END 2020-06-16 16:11 | DRG 721 ==
LOC: ER 17:32 → ED HOLD 20:30 → SUR 3N 21:30
PROVIDERS: ADMIT Family Medicine; ATTEND Internal Medicine
PROC: BW211ZZ Computerized Tomography (CT Scan) of Abdomen and Pelvis using Low Osmolar Contrast (ICD-10-PCS; 2020-06-12)
PROC: 0HCAXZZ Extirpation of Matter from Inguinal Skin, External Approach (ICD-10-PCS; principal; 2020-06-13 11:22)
DX: T81.41XA Infection following a procedure, superficial incisional surgical site, initial encounter (principal); J44.9 Chronic obstructive pulmonary disease, unspecified; E11.22 Type 2 diabetes mellitus with diabetic chronic kidney disease; I97.89 Other postprocedural complications and disorders of the circulatory system, not elsewhere classified; E11.42 Type 2 diabetes mellitus with diabetic polyneuropathy; E11.51 Type 2 diabetes mellitus with diabetic peripheral angiopathy without gangrene; F12.90 Cannabis use, unspecified, uncomplicated; N17.9 Acute kidney failure, unspecified; F17.210 Nicotine dependence, cigarettes, uncomplicated; M19.90 Unspecified osteoarthritis, unspecified site; Y83.2 Surgical operation with anastomosis, bypass or graft as the cause of abnormal reaction of the patient, or of later complication, without mention of misadventure at the time of the procedure; D69.6 Thrombocytopenia, unspecified; D64.9 Anemia, unspecified; I12.9 Hypertensive chronic kidney disease with stage 1 through stage 4 chronic kidney disease, or unspecified chronic kidney disease; Z20.822 Contact with and (suspected) exposure to COVID-19; N18.9 Chronic kidney disease, unspecified; S30.1XXA Contusion of abdominal wall, initial encounter; Z79.02 Long term (current) use of antithrombotics/antiplatelets; Z86.718 Personal history of other venous thrombosis and embolism; Z89.511 Acquired absence of right leg below knee; Y92.89 Other specified places as the place of occurrence of the external cause; Z88.5 Allergy status to narcotic agent
CPT/HCPCS: 36415; 71045; 74177; 76937; 80053; 82948; 83036; 83690; 83735; 84145; 85025; 85610; 87070; 87075; 87077; 87081; 87102; 87186; 87426; 93922; 97110; 97161; 97530; 99285; A4618; A6550; A7000; G0378; J1100; J1644; J2250; J2270; J2710; J3010; J3370; J3490; J7030; J7040; J7050; J7120; P9045; Q9967

== ENCOUNTER 2024-05-27 14:46 | Inpatient (IN) | payer MEDICAID ==
[~2024-05-27] VITALS: Ht 157.5 cm; Wt 50.0 kg
[~2024-05-27 14:46] MED LIST changes: -dexamethasone 4mg/ml inj ONE; -rocuronium bromide 100mg/10ml (10mg/ml) injection IV ONE; -sevoflurane 250ml liquid IH ONE
[2024-05-27 15:39] LABS: BASOPHILS % (AUTO) 0.5 % (0-1); EOSINOPHILS # (AUTO) 0.1 X10'3 (0-0.9); EOSINOPHILS % (AUTO) 0.8 % (0-6); HEMATOCRIT 43.5 % (35.0-45.0); HEMOGLOBIN 14.6 g/dl (12.0-16.0); LYMPHOCYTES # (AUTO) 1.4 X10'3 (1.1-4.8); LYMPHOCYTES % (AUTO) 16.1 % (21-51); MEAN CORPUSCULAR HEMOGLOBIN 32.9 PG (27.0-31.0); MEAN CORPUSCULAR HGB CONC 33.6 g/dL (33.0-36.5); MEAN CORPUSCULAR VOLUME 97.7 FL (78-98); MEAN PLATELET VOLUME 7.1 FL (7.4-10.4); MONOCYTES # (AUTO) 0.6 X10'3 (0-0.9); MONOCYTES % (AUTO) 7.2 % (2-12); NEUTROPHILS # (AUTO) 6.7 X10'3 (1.8-7.7); NEUTROPHILS % (AUTO) 75.4 % (42-75); PLATELET COUNT 335 X10'3 (140-440); RED BLOOD COUNT 4.45 X10'6 (4.20-5.60); RED CELL DISTRIBUTION WIDTH 13.2 % (11.5-14.5); WHITE BLOOD COUNT 8.9 X10'3 (4.5-11.0)
[2024-05-27 15:49] LABS: ALBUMIN 3.5 G/DL (3.4-5.0); ANION GAP 8 (8-16); BLOOD UREA NITROGEN 19 MG/DL (7-18); BUN/CREATININE RATIO 23.5 (10.0-20.0); CALCIUM 9.5 MG/DL (8.5-10.1); CHLORIDE 105 MMOL/L (99-107); CREATININE 0.81 MG/DL (0.40-0.90); GLUCOSE 100 MG/DL (70-104); POTASSIUM 3.3 MMOL/L (3.5-5.1); SODIUM 142 MMOL/L (135-145); eCRCL 57 ML/MIN; eGFR 72 ML/MIN
[2024-05-27 16:45] LABS: BILIRUBIN,URINE NEGATIVE (Neg); CLARITY,URINE CLOUDY (Clear); COLOR,URINE YELLOW (Yellow); GLUCOSE, URINE NEGATIVE (Neg); KETONES,URINE TRACE mg/dl (Neg); LEUKOCYTE ESTERASE ,URINE NEGATIVE (Neg); OCCULT BLOOD,URINE NEGATIVE (Neg); PROTEIN,URINE NEGATIVE (Neg); UROBILINOGEN,URINE 0.2 E.U/dL (0.2-1.0)
[2024-05-27 16:53] LABS: UA COLLECTION TYPE CLN CATCH MIDSTREAM
[2024-05-27 16:54] LABS: NITRITES, URINE NEGATIVE (Neg)
[2024-05-27 16:55] LABS: BACTERIA,URINE 4+ /HPF (Neg); RBC,URINE 0-2 /HPF (0-2); SQUAMOUS EPITHELIAL CELL,UR FEW /LPF (FEW)
[2024-05-27 16:56] LABS: RENAL CELLS, URINE FEW /HPF; TRANSITIONAL EPI CELLS,URINE FEW /HPF
[2024-05-27] MEDS ORDERED: heparin 10,000 units/1 ML INJ IV ONE (17:55)
[2024-05-27] MEDS ORDERED: iohexol 350 MG/ML 50ML vial IV ONE (18:03)
[2024-05-27] MEDS ORDERED: iohexol 350MG/ML 100ml bottle IV ONE (18:03)
[2024-05-27 18:19] LABS: APTT 24 SECONDS (22-32); PROTHROMBIN TIME 10.8 SECONDS (9.0-12.0)
[2024-05-27] MEDS: MESSAGE TO NURSING IV ONE (18:26)
[2024-05-27] MEDS: heparin 10,000 units/1 ML INJ IV ONE (18:28)
[2024-05-27] MEDS: heparin 25,000 UNIT/250ml bag 250 ML IV PRN (18:30)
[2024-05-27] MEDS: normal saline 1000ml 1,000 ML IV SCH (19:55)
[2024-05-27] MEDS ORDERED: potassium Cl 20 mEq SR tablet PO PRN (19:55)
[2024-05-27] MEDS ORDERED: mag hydrox/Alum hydrox/simeth 30ml oral suspension PO PRN (19:55)
[2024-05-27] MEDS ORDERED: magnesium sulf-water 4G/100mL 100 ML IV PRN (19:55)
[2024-05-27] MEDS ORDERED: magnesium sulf-water 2g/50mL 50 ML IV PRN (19:55)
[2024-05-27] MEDS ORDERED: ondansetron/PF 4mg/2ml inj IV PRN (19:55)
[2024-05-27] MEDS ORDERED: magnesium Cl slow-release 64mg tablet PO PRN (19:55)
[2024-05-27] MEDS ORDERED: acetaminophen 325mg tablet PO PRN (19:55)
[2024-05-27] MEDS ORDERED: potassium Cl 40MEQ/1/2NS 520ml 520 ML IV PRN (19:55)
[2024-05-27] MEDS: K and/or MAG REPLACEMENT MC SCH (20:00)
[2024-05-27] MEDS: docusate sod 100mg capsule PO SCH (20:00)
[2024-05-27 20:30] LABS: HEMOGLOBIN A1C 5.2 % (4.5-6.2)
[2024-05-27 21:03] LABS: ALANINE AMINOTRANSFERASE 25 U/L (12-78); ALBUMIN/GLOBULIN RATIO 0.9 (1.1-1.5); ALKALINE PHOSPHATASE 77 IU/L (46-116); ASPARTATE AMINO TRANSFERASE 15 U/L (10-37); BILIRUBIN,TOTAL 0.3 MG/DL (0.1-1.0); TOTAL PROTEIN 7.2 G/DL (6.4-8.2)
[2024-05-27] MEDS: vancomycin/NS 1 GM ADD-VANTAGE 250 ML IV SCH (22:09)
[2024-05-27] MEDS: potassium Cl 20 mEq SR tablet PO PRN (22:17)
[2024-05-27 23:45] LABS: URINE AMPHETAMINE SCREEN POSITIVE (Neg); URINE BARBITUATE SCREEN NEGATIVE (Neg); URINE BENZODIAZEPINES SCREEN NEGATIVE (Neg); URINE CANNABINOID SCREEN POSITIVE (Neg); URINE COCAINE SCREEN NEGATIVE (Neg); URINE METHADONE SCREEN NEGATIVE (Neg); URINE OPIATE SCREEN NEGATIVE (Neg); URINE PHENCYCLIDINE SCREEN NEGATIVE (Neg)
[2024-05-28] MEDS ORDERED: potassium Cl 40MEQ/1/2NS 520ml 520 ML IV PRN (00:10)
[2024-05-28] MEDS ORDERED: magnesium sulf-water 2g/50mL 50 ML IV PRN (00:10)
[2024-05-28] MEDS ORDERED: magnesium sulf-water 4G/100mL 100 ML IV PRN (00:10)
[2024-05-28] MEDS ORDERED: magnesium Cl slow-release 64mg tablet PO PRN (00:10)
[2024-05-28] MEDS: piperacillin/tazo 3.375gm/50ml 50 ML IV SCH (00:55)
[2024-05-28 01:06] LABS: BASOPHILS % (AUTO) 0.5 % (0-1); EOSINOPHILS # (AUTO) 0.1 X10'3 (0-0.9); EOSINOPHILS % (AUTO) 1.7 % (0-6); HEMATOCRIT 38.1 % (35.0-45.0); LYMPHOCYTES # (AUTO) 2.2 X10'3 (1.1-4.8); LYMPHOCYTES % (AUTO) 27.2 % (21-51); MEAN CORPUSCULAR HEMOGLOBIN 33.3 PG (27.0-31.0); MEAN CORPUSCULAR HGB CONC 34.1 g/dL (33.0-36.5); MEAN CORPUSCULAR VOLUME 97.8 FL (78-98); MEAN PLATELET VOLUME 7.5 FL (7.4-10.4); MONOCYTES # (AUTO) 0.6 X10'3 (0-0.9); MONOCYTES % (AUTO) 7.6 % (2-12); NEUTROPHILS # (AUTO) 5.1 X10'3 (1.8-7.7); PLATELET COUNT 295 X10'3 (140-440); RED BLOOD COUNT 3.89 X10'6 (4.20-5.60); RED CELL DISTRIBUTION WIDTH 13.3 % (11.5-14.5); WHITE BLOOD COUNT 8.1 X10'3 (4.5-11.0)
[2024-05-28 01:24] LABS: ANION GAP 7 (8-16); BLOOD UREA NITROGEN 14 MG/DL (7-18); BUN/CREATININE RATIO 38.9 (10.0-20.0); CALCIUM 8.8 MG/DL (8.5-10.1); CHLORIDE 107 MMOL/L (99-107); CHOL/HDL RATIO 2.5 (0.00-4.99); CHOLESTEROL 140 MG/DL (0-200); CREATININE 0.36 MG/DL (0.40-0.90); GLUCOSE 91 MG/DL (70-104); HDL CHOLESTEROL 56 MG/DL (35-60); LDL CHOLESTEROL 67 MG/DL (50-100); MAGNESIUM 1.5 MG/DL (1.5-2.4); POTASSIUM 3.4 MMOL/L (3.5-5.1); SODIUM 143 MMOL/L (135-145); TOTAL CARBON DIOXIDE 28.7 MMOL/L (24-32); TRIGLYCERIDES 60 MG/DL (20-135); eCRCL 128 ML/MIN; eGFR > 90 ML/MIN
[2024-05-28] MEDS: MESSAGE TO NURSING IV ONE ×4 (01:58→16:49)
[2024-05-28] MEDS: morphine 2 MG/ML inj. syringe IV PRN (03:40)
[2024-05-28 08:00] VITALS: RESP 14; O2SAT 98
[2024-05-28] MEDS: pantoprazole 40 MG vial IV SCH (08:25)
[2024-05-28 08:41] VITALS: BP 145/72; PULSE 87; RESP 14; TEMP 98.1; O2SAT 100
[2024-05-28] MEDS: K and/or MAG REPLACEMENT MC SCH (08:49)
[2024-05-28] MEDS: potassium Cl 20 mEq SR tablet PO PRN ×2 (08:54→13:57)
[2024-05-28 10:33] VITALS: BP 151/78; PULSE 98; RESP 20; TEMP 98.3; O2SAT 96
[2024-05-28] MEDS: JUVEN Smoothie Arginine/Glut./Ca2+Bmb (Juven 19.3pkt) 240ml cup PO SCH ×2 (13:21→17:53)
[2024-05-28] MEDS: magnesium hydroxide 30ml (MOM) UD suspension PO PRN (13:58)
[2024-05-28 18:00] VITALS: BP 145/70; PULSE 99; RESP 18; TEMP 98.3; O2SAT 99
[2024-05-28 20:00] VITALS: RESP 18
[2024-05-28 22:00] VITALS: BP 139/75; PULSE 94; RESP 18; TEMP 98.7; O2SAT 96
[2024-05-29] VITALS (7 sets, daily range): BP systolic 101–157; BP diastolic 48–78; PULSE 90–98; RESP 17–19; TEMP 98.2–98.7; O2SAT 96–98
[2024-05-29] MEDS: MESSAGE TO NURSING IV ONE ×4 (01:05→21:11)
[2024-05-29 07:47] LABS: BASOPHILS % (AUTO) 0.3 % (0-1); EOSINOPHILS % (AUTO) 0.5 % (0-6); HEMATOCRIT 35.4 % (35.0-45.0); HEMOGLOBIN 12.1 g/dl (12.0-16.0); LYMPHOCYTES # (AUTO) 1.7 X10'3 (1.1-4.8); LYMPHOCYTES % (AUTO) 25.3 % (21-51); MEAN CORPUSCULAR HEMOGLOBIN 33.2 PG (27.0-31.0); MEAN CORPUSCULAR HGB CONC 34.1 g/dL (33.0-36.5); MEAN CORPUSCULAR VOLUME 97.5 FL (78-98); MEAN PLATELET VOLUME 7.5 FL (7.4-10.4); MONOCYTES # (AUTO) 0.8 X10'3 (0-0.9); MONOCYTES % (AUTO) 11.2 % (2-12); NEUTROPHILS # (AUTO) 4.2 X10'3 (1.8-7.7); NEUTROPHILS % (AUTO) 62.7 % (42-75); PLATELET COUNT 244 X10'3 (140-440); RED BLOOD COUNT 3.63 X10'6 (4.20-5.60); RED CELL DISTRIBUTION WIDTH 13.2 % (11.5-14.5); WHITE BLOOD COUNT 6.7 X10'3 (4.5-11.0)
[2024-05-29 13:53] LABS: ALBUMIN 2.7 G/DL (3.4-5.0); ANION GAP 5 (8-16); BLOOD UREA NITROGEN 7 MG/DL (7-18); BUN/CREATININE RATIO 15.2 (10.0-20.0); CALCIUM 8.5 MG/DL (8.5-10.1); CHLORIDE 103 MMOL/L (99-107); CREATININE 0.46 MG/DL (0.40-0.90); GLUCOSE 127 MG/DL (70-104); MAGNESIUM 1.8 MG/DL (1.5-2.4); SODIUM 136 MMOL/L (135-145); TOTAL CARBON DIOXIDE 28.3 MMOL/L (24-32); eCRCL 100 ML/MIN; eGFR > 90 ML/MIN
[2024-05-29] MEDS: heparin 10,000 units/1 ML INJ IV PRN (21:01)
[2024-05-30] VITALS (8 sets, daily range): BP systolic 106–128; BP diastolic 59–83; PULSE 75–87; RESP 16–20; TEMP 98–99.1; O2SAT 96–100
[2024-05-30] MEDS: heparin 25,000 UNIT/250ml bag 250 ML IV PRN (01:14)
[2024-05-30 03:27] LABS: BASOPHILS % (AUTO) 0.3 % (0-1); EOSINOPHILS # (AUTO) 0.1 X10'3 (0-0.9); EOSINOPHILS % (AUTO) 0.9 % (0-6); HEMATOCRIT 34.3 % (35.0-45.0); HEMOGLOBIN 11.5 g/dl (12.0-16.0); LYMPHOCYTES # (AUTO) 1.7 X10'3 (1.1-4.8); LYMPHOCYTES % (AUTO) 24.7 % (21-51); MEAN CORPUSCULAR HEMOGLOBIN 32.6 PG (27.0-31.0); MEAN CORPUSCULAR HGB CONC 33.4 g/dL (33.0-36.5); MEAN CORPUSCULAR VOLUME 97.6 FL (78-98); MEAN PLATELET VOLUME 7.8 FL (7.4-10.4); MONOCYTES # (AUTO) 0.8 X10'3 (0-0.9); MONOCYTES % (AUTO) 11.2 % (2-12); NEUTROPHILS # (AUTO) 4.2 X10'3 (1.8-7.7); NEUTROPHILS % (AUTO) 62.9 % (42-75); PLATELET COUNT 222 X10'3 (140-440); RED BLOOD COUNT 3.52 X10'6 (4.20-5.60); WHITE BLOOD COUNT 6.7 X10'3 (4.5-11.0)
[2024-05-30 03:35] LABS: ALBUMIN 2.6 G/DL (3.4-5.0); ANION GAP 4 (8-16); BLOOD UREA NITROGEN 9 MG/DL (7-18); BUN/CREATININE RATIO 37.5 (10.0-20.0); CALCIUM 8.8 MG/DL (8.5-10.1); CHLORIDE 105 MMOL/L (99-107); CREATININE 0.24 MG/DL (0.40-0.90); GLUCOSE 114 MG/DL (70-104); MAGNESIUM 1.9 MG/DL (1.5-2.4); POTASSIUM 4.1 MMOL/L (3.5-5.1); SODIUM 138 MMOL/L (135-145); TOTAL CARBON DIOXIDE 29.5 MMOL/L (24-32); eCRCL 192 ML/MIN; eGFR > 90 ML/MIN
[2024-05-30] MEDS: MESSAGE TO NURSING IV ONE ×3 (03:50→15:57)
[2024-05-31] VITALS (24 sets, daily range): BP systolic 116–163; BP diastolic 66–120; PULSE 9–124; RESP 12–18; TEMP 98–99.9; O2SAT 91–99
[2024-05-31 06:06] LABS: BASOPHILS % (AUTO) 0.4 % (0-1); EOSINOPHILS # (AUTO) 0.1 X10'3 (0-0.9); EOSINOPHILS % (AUTO) 1.3 % (0-6); HEMATOCRIT 34.1 % (35.0-45.0); HEMOGLOBIN 11.7 g/dl (12.0-16.0); LYMPHOCYTES # (AUTO) 1.2 X10'3 (1.1-4.8); LYMPHOCYTES % (AUTO) 20.8 % (21-51); MEAN CORPUSCULAR HEMOGLOBIN 33.6 PG (27.0-31.0); MEAN CORPUSCULAR HGB CONC 34.3 g/dL (33.0-36.5); MEAN PLATELET VOLUME 7.9 FL (7.4-10.4); MONOCYTES # (AUTO) 0.7 X10'3 (0-0.9); NEUTROPHILS # (AUTO) 3.7 X10'3 (1.8-7.7); NEUTROPHILS % (AUTO) 65.5 % (42-75); PLATELET COUNT 231 X10'3 (140-440); RED BLOOD COUNT 3.48 X10'6 (4.20-5.60); WHITE BLOOD COUNT 5.7 X10'3 (4.5-11.0)
[2024-05-31 06:17] LABS: ALBUMIN 2.6 G/DL (3.4-5.0); ANION GAP 5 (8-16); BLOOD UREA NITROGEN 13 MG/DL (7-18); BUN/CREATININE RATIO 34.2 (10.0-20.0); CALCIUM 8.7 MG/DL (8.5-10.1); CHLORIDE 104 MMOL/L (99-107); CREATININE 0.38 MG/DL (0.40-0.90); GLUCOSE 92 MG/DL (70-104); MAGNESIUM 1.8 MG/DL (1.5-2.4); POTASSIUM 3.8 MMOL/L (3.5-5.1); SODIUM 138 MMOL/L (135-145); TOTAL CARBON DIOXIDE 28.9 MMOL/L (24-32); eCRCL 121 ML/MIN; eGFR > 90 ML/MIN
[2024-05-31 06:23] LABS: APTT 25 SECONDS (22-32); PROTHROMBIN TIME 10.5 SECONDS (9.0-12.0)
[2024-05-31] MEDS ORDERED: fentaNYL/PF 50MCG/1 ML 2ML syringe IV PRN ×2 (15:45)
[2024-05-31] MEDS ORDERED: hydrALAZINE 20mg/ml inj. IV PRN (15:45)
[2024-05-31] MEDS ORDERED: ondansetron/PF 4mg/2ml inj IV PRN (15:45)
[2024-05-31] MEDS ORDERED: morphine 2 MG/ML inj. syringe IV PRN (15:45)
[2024-05-31] MEDS ORDERED: bacitracin 15gm ointment TP ONE (16:06)
[2024-05-31] MEDS ORDERED: sevoflurane 250ml liquid IH ONE (16:13)
[2024-05-31] MEDS ORDERED: fentaNYL/PF 50MCG/1 ML 2ML syringe ONE ×2 (16:19→17:07)
[2024-05-31] MEDS ORDERED: midazolam 1 mg/ML 2ml injection ONE (16:21)
[2024-05-31] MEDS ORDERED: propofol inj 20 ML IV ONE (16:23)
[2024-05-31] MEDS ORDERED: ceFAZolin 1000mg inj ONE ×2 (16:24)
[2024-05-31] MEDS ORDERED: dexamethasone sod phosphate 4mg/ml inj. ONE (16:26)
[2024-05-31] MEDS: labetalol 20mg/4ml (5mg/ml) syringe IV PRN (19:01)
[2024-05-31] MEDS: ringers solution, lacted 1,000 ML IV SCH (19:03)
[2024-05-31] MEDS: morphine 4 MG/ML inj SYRINge IV PRN (19:27)
[2024-06-01] MEDS: traMADol 50MG tablet PO PRN (02:27)
[2024-06-01 04:57] LABS: BASOPHILS % (AUTO) 0.3 % (0-1); EOSINOPHILS % (AUTO) 0 % (0-6); HEMATOCRIT 27.7 % (35.0-45.0); HEMOGLOBIN 9.4 g/dl (12.0-16.0); LYMPHOCYTES # (AUTO) 0.6 X10'3 (1.1-4.8); LYMPHOCYTES % (AUTO) 10.2 % (21-51); MEAN CORPUSCULAR HEMOGLOBIN 33.2 PG (27.0-31.0); MEAN CORPUSCULAR HGB CONC 34.1 g/dL (33.0-36.5); MEAN CORPUSCULAR VOLUME 97.4 FL (78-98); MEAN PLATELET VOLUME 7.3 FL (7.4-10.4); MONOCYTES # (AUTO) 0.3 X10'3 (0-0.9); MONOCYTES % (AUTO) 5.4 % (2-12); NEUTROPHILS # (AUTO) 4.9 X10'3 (1.8-7.7); NEUTROPHILS % (AUTO) 84.1 % (42-75); PLATELET COUNT 242 X10'3 (140-440); RED BLOOD COUNT 2.84 X10'6 (4.20-5.60); RED CELL DISTRIBUTION WIDTH 12.9 % (11.5-14.5); WHITE BLOOD COUNT 5.9 X10'3 (4.5-11.0)
[2024-06-01 05:04] LABS: ALBUMIN 2.4 G/DL (3.4-5.0); ANION GAP 7 (8-16); BLOOD UREA NITROGEN 11 MG/DL (7-18); BUN/CREATININE RATIO 26.2 (10.0-20.0); CALCIUM 8.8 MG/DL (8.5-10.1); CHLORIDE 101 MMOL/L (99-107); CREATININE 0.42 MG/DL (0.40-0.90); GLUCOSE 117 MG/DL (70-104); POTASSIUM 4.3 MMOL/L (3.5-5.1); SODIUM 135 MMOL/L (135-145); TOTAL CARBON DIOXIDE 26.8 MMOL/L (24-32); eCRCL 110 ML/MIN; eGFR > 90 ML/MIN
[2024-06-01 06:00] VITALS: BP 122/65; PULSE 87; RESP 18; TEMP 98; O2SAT 97
[2024-06-01] MEDS: morphine 2 MG/ML inj. syringe IV PRN (07:47)
[2024-06-01 10:00] VITALS: BP 117/66; PULSE 80; RESP 17; RESP 18; TEMP 97.9; O2SAT 98
[2024-06-01 11:54] VITALS: RESP 18; O2SAT 97
[2024-06-01 18:00] VITALS: BP 121/61; PULSE 79; RESP 16; TEMP 98; O2SAT 99
[2024-06-01 20:00] VITALS: BP 136/71; PULSE 88; RESP 18; TEMP 99.9; O2SAT 97
[2024-06-02] VITALS (8 sets, daily range): BP systolic 112–132; BP diastolic 51–70; PULSE 86–89; RESP 16–20; TEMP 97.6–99.9; O2SAT 97–100
[2024-06-03 06:00] VITALS: BP 130/69; PULSE 86; RESP 16; TEMP 98.8; O2SAT 96
[2024-06-03 10:00] VITALS: BP 95/48; PULSE 83; RESP 16; TEMP 98.5; O2SAT 97
[2024-06-03 16:28] LABS: BASOPHILS % (AUTO) 0.5 % (0-1); EOSINOPHILS % (AUTO) 0.6 % (0-6); HEMATOCRIT 26.9 % (35.0-45.0); LYMPHOCYTES # (AUTO) 1.4 X10'3 (1.1-4.8); MEAN CORPUSCULAR HEMOGLOBIN 33.1 PG (27.0-31.0); MEAN CORPUSCULAR HGB CONC 33.6 g/dL (33.0-36.5); MEAN CORPUSCULAR VOLUME 98.7 FL (78-98); MEAN PLATELET VOLUME 7.7 FL (7.4-10.4); MONOCYTES # (AUTO) 0.6 X10'3 (0-0.9); MONOCYTES % (AUTO) 10.6 % (2-12); NEUTROPHILS % (AUTO) 65.3 % (42-75); PLATELET COUNT 303 X10'3 (140-440); RED BLOOD COUNT 2.72 X10'6 (4.20-5.60); RED CELL DISTRIBUTION WIDTH 13.1 % (11.5-14.5); WHITE BLOOD COUNT 6.1 X10'3 (4.5-11.0)
[2024-06-03 16:34] LABS: ALBUMIN 2.5 G/DL (3.4-5.0); ANION GAP 5 (8-16); BLOOD UREA NITROGEN 19 MG/DL (7-18); BUN/CREATININE RATIO 46.3 (10.0-20.0); CALCIUM 8.8 MG/DL (8.5-10.1); CHLORIDE 101 MMOL/L (99-107); CREATININE 0.41 MG/DL (0.40-0.90); GLUCOSE 133 MG/DL (70-104); POTASSIUM 3.6 MMOL/L (3.5-5.1); SODIUM 134 MMOL/L (135-145); eCRCL 112 ML/MIN; eGFR > 90 ML/MIN
[2024-06-03 18:00] VITALS: BP 115/58; PULSE 84; RESP 18; TEMP 98.4; O2SAT 97
[2024-06-03 20:00] VITALS: RESP 18; O2SAT 97
[2024-06-03] MEDS: polyethylene glycol 3350 17gm powd pack PO SCH (20:49)
[2024-06-03 22:00] VITALS: BP 102/48; PULSE 80; RESP 18; TEMP 97.7; O2SAT 97
[2024-06-04] VITALS (7 sets, daily range): BP systolic 114–122; BP diastolic 42–61; PULSE 71–87; RESP 14–16; TEMP 97.5–98.1; O2SAT 95–100
[2024-06-05] VITALS (7 sets, daily range): BP systolic 103–123; BP diastolic 48–57; PULSE 78–84; RESP 13–20; TEMP 97.3–98.5; O2SAT 95–99
[2024-06-05 09:08] LABS: BASOPHILS % (AUTO) 0.5 % (0-1); EOSINOPHILS # (AUTO) 0.1 X10'3 (0-0.9); EOSINOPHILS % (AUTO) 1.4 % (0-6); HEMATOCRIT 28.1 % (35.0-45.0); HEMOGLOBIN 9.3 g/dl (12.0-16.0); LYMPHOCYTES # (AUTO) 1.4 X10'3 (1.1-4.8); MEAN CORPUSCULAR HEMOGLOBIN 32.6 PG (27.0-31.0); MEAN CORPUSCULAR HGB CONC 33.1 g/dL (33.0-36.5); MEAN CORPUSCULAR VOLUME 98.4 FL (78-98); MEAN PLATELET VOLUME 7.2 FL (7.4-10.4); MONOCYTES # (AUTO) 0.4 X10'3 (0-0.9); MONOCYTES % (AUTO) 7.4 % (2-12); NEUTROPHILS % (AUTO) 67.7 % (42-75); PLATELET COUNT 406 X10'3 (140-440); RED BLOOD COUNT 2.86 X10'6 (4.20-5.60); RED CELL DISTRIBUTION WIDTH 13.1 % (11.5-14.5); WHITE BLOOD COUNT 5.9 X10'3 (4.5-11.0)
[2024-06-05 09:15] LABS: ALBUMIN 2.8 G/DL (3.4-5.0); ANION GAP 8 (8-16); BLOOD UREA NITROGEN 14 MG/DL (7-18); BUN/CREATININE RATIO 41.2 (10.0-20.0); CALCIUM 8.9 MG/DL (8.5-10.1); CHLORIDE 101 MMOL/L (99-107); CREATININE 0.34 MG/DL (0.40-0.90); GLUCOSE 143 MG/DL (70-104); POTASSIUM 3.5 MMOL/L (3.5-5.1); SODIUM 138 MMOL/L (135-145); TOTAL CARBON DIOXIDE 29.1 MMOL/L (24-32); eCRCL 135 ML/MIN; eGFR > 90 ML/MIN
[2024-06-06] VITALS (7 sets, daily range): BP systolic 116–129; BP diastolic 51–72; PULSE 69–81; RESP 14–18; TEMP 97.4–98.2; O2SAT 96–100
[2024-06-07 05:26] VITALS: O2SAT 100
[2024-06-07 06:00] VITALS: BP 123/65; PULSE 78; RESP 18; TEMP 98.1; O2SAT 98
[2024-06-07 11:04] VITALS: BP 110/54; PULSE 80; RESP 16; TEMP 97.9; O2SAT 98
[2024-06-07 18:00] VITALS: BP 118/60; PULSE 79; RESP 19; TEMP 98.8; O2SAT 98
[2024-06-07 20:00] VITALS: RESP 19; O2SAT 98
[2024-06-07 22:00] VITALS: BP 107/52; PULSE 83; RESP 16; TEMP 98.9; O2SAT 98
[2024-06-08 02:47] VITALS: O2SAT 98
[2024-06-08 04:59] LABS: BASOPHILS % (AUTO) 0.6 % (0-1); EOSINOPHILS # (AUTO) 0.2 X10'3 (0-0.9); EOSINOPHILS % (AUTO) 3.5 % (0-6); HEMATOCRIT 27.2 % (35.0-45.0); HEMOGLOBIN 9.4 g/dl (12.0-16.0); LYMPHOCYTES # (AUTO) 1.9 X10'3 (1.1-4.8); LYMPHOCYTES % (AUTO) 33.3 % (21-51); MEAN CORPUSCULAR HEMOGLOBIN 33.6 PG (27.0-31.0); MEAN CORPUSCULAR HGB CONC 34.7 g/dL (33.0-36.5); MEAN CORPUSCULAR VOLUME 96.9 FL (78-98); MEAN PLATELET VOLUME 6.8 FL (7.4-10.4); MONOCYTES # (AUTO) 0.6 X10'3 (0-0.9); MONOCYTES % (AUTO) 9.9 % (2-12); NEUTROPHILS % (AUTO) 52.7 % (42-75); PLATELET COUNT 458 X10'3 (140-440); RED CELL DISTRIBUTION WIDTH 13.2 % (11.5-14.5); WHITE BLOOD COUNT 5.6 X10'3 (4.5-11.0)
[2024-06-08 05:04] LABS: ALBUMIN 2.9 G/DL (3.4-5.0); ANION GAP 5 (8-16); BLOOD UREA NITROGEN 17 MG/DL (7-18); CALCIUM 9.6 MG/DL (8.5-10.1); CHLORIDE 102 MMOL/L (99-107); CREATININE 0.46 MG/DL (0.40-0.90); GLUCOSE 97 MG/DL (70-104); POTASSIUM 4.3 MMOL/L (3.5-5.1); SODIUM 139 MMOL/L (135-145); TOTAL CARBON DIOXIDE 31.6 MMOL/L (24-32); eCRCL 100 ML/MIN; eGFR > 90 ML/MIN
[2024-06-08 06:57] VITALS: BP 108/79; PULSE 81; RESP 19; TEMP 98; O2SAT 96
[2024-06-08 10:00] VITALS: BP 122/71; PULSE 51; RESP 17; TEMP 98.1; O2SAT 99
[2024-06-08 19:00] VITALS: BP 120/63; PULSE 79; RESP 16; TEMP 97; O2SAT 99
[2024-06-08 20:00] VITALS: RESP 16; O2SAT 97
[2024-06-08 22:00] VITALS: BP 144/66; PULSE 79; RESP 18; TEMP 98.2; O2SAT 98
[2024-06-09 06:30] VITALS: BP 105/59; PULSE 72; RESP 18; TEMP 98.5; O2SAT 98
[2024-06-09 08:00] VITALS: RESP 16; O2SAT 98
[2024-06-09 10:00] VITALS: BP 116/58; PULSE 81; RESP 16; TEMP 98.7; O2SAT 97
[2024-06-09 18:00] VITALS: BP 127/34; PULSE 82; RESP 16; TEMP 98.1; O2SAT 100
[2024-06-09 20:00] VITALS: RESP 16; O2SAT 97
[2024-06-09 22:00] VITALS: BP 100/54; PULSE 78; RESP 16; TEMP 98.1; O2SAT 98
[2024-06-10 06:00] VITALS: BP 97/55; PULSE 75; RESP 15; TEMP 98.2; O2SAT 99
[2024-06-10 08:00] VITALS: RESP 18; O2SAT 98
[2024-06-10 10:00] VITALS: BP 114/52; PULSE 84; RESP 18; TEMP 98.6; O2SAT 98
[2024-06-10 17:24] VITALS: BP 117/45; PULSE 79; RESP 16; TEMP 98.8; O2SAT 98
[2024-06-10 20:00] VITALS: RESP 16; O2SAT 98
[2024-06-10 22:00] VITALS: BP 119/52; PULSE 70; RESP 18; TEMP 98.5; O2SAT 93
[2024-06-11 07:18] VITALS: BP 117/64; PULSE 78; RESP 17; TEMP 98.2; O2SAT 99
[2024-06-11 10:00] VITALS: BP 97/45; PULSE 75; RESP 16; TEMP 99; O2SAT 99
[2024-06-11 18:00] VITALS: BP 117/58; PULSE 76; RESP 19; TEMP 98; O2SAT 99
[2024-06-11 22:00] VITALS: BP 126/60; PULSE 84; RESP 14; TEMP 98.6; O2SAT 94
[2024-06-12 06:00] VITALS: BP 110/59; PULSE 74; RESP 14; TEMP 98.8; O2SAT 98
[2024-06-12 10:42] VITALS: RESP 14; O2SAT 98
[2024-06-12 10:51] VITALS: RESP 14; O2SAT 98
[2024-06-12 14:17] VITALS: RESP 16
== END 2024-06-12 15:00 | DRG 305 ==
LOC: ER 14:47 → ED HOLD 20:05 → SUR 3N 05-28 07:36
PROVIDERS: ADMIT Internal Medicine Sleep Medicine; ATTEND Family Medicine
PROC: B4201ZZ Computerized Tomography (CT Scan) of Abdominal Aorta using Low Osmolar Contrast (ICD-10-PCS; 2024-05-27)
PROC: B42H1ZZ Computerized Tomography (CT Scan) of Bilateral Lower Extremity Arteries using Low Osmolar Contrast (ICD-10-PCS; 2024-05-27)
PROC: 0Y6J0Z1 Detachment at Left Lower Leg, High, Open Approach (ICD-10-PCS; principal; 2024-05-31 16:13)
DX: I70.722 Atherosclerosis of other type of bypass graft(s) of the extremities with rest pain, left leg (principal); E11.22 Type 2 diabetes mellitus with diabetic chronic kidney disease; E11.42 Type 2 diabetes mellitus with diabetic polyneuropathy; L03.116 Cellulitis of left lower limb; E11.51 Type 2 diabetes mellitus with diabetic peripheral angiopathy without gangrene; Z66 Do not resuscitate; I12.9 Hypertensive chronic kidney disease with stage 1 through stage 4 chronic kidney disease, or unspecified chronic kidney disease; N18.9 Chronic kidney disease, unspecified; J44.9 Chronic obstructive pulmonary disease, unspecified; Z59.00 Homelessness unspecified; N39.0 Urinary tract infection, site not specified; F17.200 Nicotine dependence, unspecified, uncomplicated; F15.90 Other stimulant use, unspecified, uncomplicated; Z82.49 Family history of ischemic heart disease and other diseases of the circulatory system; Z89.511 Acquired absence of right leg below knee
CPT/HCPCS: 36415; 71045; 75635; 80048; 80053; 80061; 80305; 81001; 82948; 83036; 83605; 83735; 84145; 85025; 85610; 85651; 85730; 87040; 87077; 87081; 87088; 87186; 93005; 93306; 93926; 97110; 97161; 97530; 99285; A4618; A6209; A6212; A6213; A6223; A6250; A6258; A6446; A6449; A7000; C1758; G0378; J0690; J1100; J1644; J2003; J2250; J2270; J2405; J2470; J2543; J2704; J3010; J3370; J3490; J7030; J7120; Q9967